=== PATIENT | female | born 1960 | race Caucasian/White ===

== ENCOUNTER → 2018-03-12 13:56 | Outpatient (CLI) | payer SELFPAY ==
[2018-03-12 14:51] LABS: Basophils % 0.4 % (0.1-2.0); Eosinophils # 0.2 K/mm3 (0.0-0.4); Eosinophils % 1.7 % (0.1-12.0); Hematocrit 44.7 % (37.0-47.0); Hemoglobin 14.8 g/dL (12.2-16.2); Lymphocytes # 3.2 K/mm3 (0.7-4.5); Lymphocytes % 32.9 K/mm3 (10-50); Mean Corpuscular Volume 84.7 fl (81-99); Mean Platelet Volume 7.7 fl (7.4-10.4); Monocytes # 0.4 K/mm3 (0.1-1.0); Monocytes % 3.5 % (1.7-9.3); Neutrophils # 6.1 K/mm3 (1.8-7.8); Neutrophils % 61.5 % (37.0-80.0); Platelet Count 251 K/mm3 (142-424); Red Blood Count 5.28 M/mm3 (4.20-5.40); Red Cell Distribution Width 13.2 % (11.5-17.5); White Blood Count 9.9 K/mm3 (4.8-10.8)
[2018-03-12 16:40] LABS: Alanine Aminotransferase 33 U/L (12-78); Albumin Level 3.8 gm/dL (3.4-5.0); Alkaline Phosphatase 94 U/L (46-116); Anion Gap 14.4 mEq/L (5-15); Aspartate Amino Transferase 24 U/L (15-37); Bilirubin,Total 0.6 mg/dL (0.2-1.0); Blood Urea Nitrogen 13 mg/dL (7-18); Calcium 9.5 mg/dL (8.5-10.1); Carbon Dioxide 27 mmol/L (21.0-32.0); Chloride 99 mmol/L (98-107); Creatinine,Serum 0.71 mg/dL (0.55-1.02); Estimated Glomerular Filt Rate 85 ml/min (>60); GFR (African American) 103 ML/MIN (>60); Globulin 3.7 gm/dl (1.3-3.2); Glucose 347 mg/dL (74-106); Potassium 4.4 mmoL/L (3.5-5.1); Sodium 136 mmol/L (136-145); Thyroid Stimulating Hormone 2.15 uIU/ml (0.358-3.740); Total Protein,Serum 7.5 gm/dL (6.4-8.2)
[2018-03-12 16:45] LABS: Erythrocyte Sedimentation Rate 39 mm/hr (0-30)
[2018-03-14 10:18] LABS: Folate >20.0 ng/mL (>3.0); Vitamin B12 408 pg/mL (232-1245)
== END ==
PROVIDERS: Visit Provider Nurse Practitioner Family
DX: R51 Headache (principal); R40.0 Somnolence; R06.83 Snoring; I10 Essential (primary) hypertension; E11.9 Type 2 diabetes mellitus without complications
CPT/HCPCS: 36415; 80053; 82607; 82746; 84443; 85025; 85651

== ENCOUNTER → 2018-03-12 14:41 | Outpatient (CLI) | payer SELFPAY | PROVIDERS: Visit Provider Nurse Practitioner Family | DX: R51 Headache (principal); R40.0 Somnolence; R06.83 Snoring; I10 Essential (primary) hypertension; E11.9 Type 2 diabetes mellitus without complications | CPT/HCPCS: 95806 ==

== ENCOUNTER → 2018-03-13 08:47 | Outpatient (CLI) | payer SELFPAY ==
--- NOTE | 2018-03-13 08:50 | MR_ITS ---
MR head/brain wo/w con HISTORY: Severe headaches with dizziness ITS.REASON: Headache ORDERING PHYSICIAN: Bernabe Sarah PATIENT AGE: 57 years TECHNIQUE: Standard multiplanar multiecho sequences are performed without and with gadolinium enhancement. FINDINGS: No midline shift, mass effect, intracranial hemorrhage, enhancing lesion, or acute infarction. The cerebellopontine angles, cerebellum, and brainstem are unremarkable. No pituitary mass or compressive lesion upon the optic chiasm. There is a 4 x 4 millimeter area of T2 hypointensity at the roof of the third ventricle anteriorly consistent with a small colloid cyst. This is best demonstrated on the sagittal T2-weighted images. This does not demonstrate contrast enhancement. The ventricles are not dilated. Hippocampal gyri are unremarkable and the temporal horns are symmetric. There is normal zhou-white matter differentiation No large aneurysms are evident. Small aneurysms may not be detected with this technique and may be better evaluated for with MRA if clinically warranted. No mastoid effusion or sinus air-fluid level. No calvarial abnormalities. IMPRESSION: 1. 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 No hydrocephalus. Recommend at least a 6 month follow-up to confirm short-term stability 2. Otherwise negative MRI of the brain without and with contrast
== END ==
PROVIDERS: Family Provider Nurse Practitioner Family; Visit Provider Nurse Practitioner Family
DX: R51 Headache (principal); R40.0 Somnolence; R06.83 Snoring; I10 Essential (primary) hypertension; E11.9 Type 2 diabetes mellitus without complications
CPT/HCPCS: 70553; A9576

== ENCOUNTER → 2018-04-16 15:59 | Outpatient (REF) | payer SELFPAY ==
[2018-04-16 18:54] LABS: Basophils % 0.4 % (0.1-2.0); Eosinophils # 0.2 K/mm3 (0.0-0.4); Eosinophils % 1.7 % (0.1-12.0); Hematocrit 46.1 % (37.0-47.0); Hemoglobin 14.9 g/dL (12.2-16.2); Hemoglobin A1C 9.5 % (0.0-7.0); Lymphocytes # 3.2 K/mm3 (0.7-4.5); Lymphocytes % 28.1 K/mm3 (10-50); Mean Corpuscular HGB Conc 32.4 g/dL (31.8-35.4); Mean Corpuscular Hemoglobin 27.7 pg (27.0-31.2); Mean Corpuscular Volume 85.5 fl (81-99); Mean Platelet Volume 7.9 fl (7.4-10.4); Monocytes # 0.5 K/mm3 (0.1-1.0); Monocytes % 4.1 % (1.7-9.3); Neutrophils # 7.6 K/mm3 (1.8-7.8); Neutrophils % 65.8 % (37.0-80.0); Platelet Count 296 K/mm3 (142-424); Red Cell Distribution Width 13.2 % (11.5-17.5); White Blood Count 11.6 K/mm3 (4.8-10.8)
[2018-04-16 19:32] LABS: Amphetamine/Metha Screen,Urine Negative ng/mL (<1000); Barbiturates Screen,Urine Negative ng/mL (<200); Benzodiazepines Screen,Urine Negative ng/mL (200); Cannabinoid Screen,Urine Negative ng/mL (<50); Cocaine Screen,Urine Negative ng/g (<300); Methadone Screen,Urine Negative ng/mL (<300); Opiate Screen,Urine Negative ng/mL (<300); Phencyclidine Screen,Urine Negative ng/mL (<25)
[2018-04-16 20:00] LABS: Alanine Aminotransferase 27 U/L (12-78); Albumin Level 3.9 gm/dL (3.4-5.0); Albumin/Globulin Ratio 1.1 (1.1-1.8); Alkaline Phosphatase 96 U/L (46-116); Aspartate Amino Transferase 17 U/L (15-37); Bilirubin,Total 0.7 mg/dL (0.2-1.0); Blood Urea Nitrogen 16 mg/dL (7-18); Calcium 9.7 mg/dL (8.5-10.1); Carbon Dioxide 29 mmol/L (21.0-32.0); Chloride 98 mmol/L (98-107); Chol/HDL Ratio 6.1 (1-3.5); Cholesterol 200 mg/dL (140-200); Creatinine,Serum 0.68 mg/dL (0.55-1.02); Estimated Glomerular Filt Rate 89 ml/min (>60); GFR (African American) 108 ML/MIN (>60); Globulin 3.7 gm/dl (1.3-3.2); Glucose 215 mg/dL (74-106); HDL Cholesterol 33 mg/dL (29-89); Sodium 136 mmol/L (136-145); T4 (Thyroxine) 10.1 ug/dl (4.7-13.3); Thyroid Stimulating Hormone 0.94 uIU/ml (0.358-3.740); Total Protein,Serum 7.6 gm/dL (6.4-8.2)
[2018-04-16 20:02] LABS: Triglycerides 410 mg/dL (30-200)
[2018-04-18 11:21] LABS: Creatinine, Urine 87.6 mg/dL (Not Estab.); Microalbumin, Urine 35.7 ug/mL (Not Estab.)
[2018-04-18 15:47] LABS: Vitamin D 25 Hydroxy 7.1 ng/mL (30.0-100.0)
== END ==
LOC: LAB 15:59
PROVIDERS: Visit Provider Nurse Practitioner Family
DX: R53.83 Other fatigue (principal); E11.9 Type 2 diabetes mellitus without complications; R30.0 Dysuria; Z79.899 Other long term (current) drug therapy
CPT/HCPCS: 80053; 80061; 80305; 82043; 82570; 82652; 83036; 84436; 84443; 85025

== ENCOUNTER → 2018-04-18 12:52 | Outpatient (CLI) | payer SELFPAY ==
--- NOTE | 2018-04-18 12:54 | MR_ITS ---
MR cervical spine wo con, MR 3-d myelogram/MRCP Ordering Physician: Bernabe Sarah Patient Age: 57 years: Female HISTORY: ITS.REASON: Neck pain/headache Migraine headaches neck pain symptoms 3 years PROCEDURE. Sagittal STIR, T1, T2, axial T1 and T2. On 1.5T Siemens wide bore MRI. 3-D MR myelogram image set obtained & performed on MRI workstation. Additional sagittal thin section T2 weighted dataset obtained from this latter acquisition as well (---76 CPT) COMPARISON :Plain film C-spine from today FINDINGS Cranial cervical junction appears satisfactory. It appears be normal alignment at the cervical spine on these views. Prevertebral and regional soft tissues normal. Adequate plantar cervical canal. Thoracic cord normal caliber and signal. C2/3, C3/4, C4/5 disc intact and unremarkable.. Facet hypertrophy most evident at the upper C-spine at C4/5 the left. However there is also minor facet hypertrophy at C3/4 and C5-C6 most evident the left C5-C6. Borderline disc space narrowing. Diffuse disc bulge with additional mild broad-based soft disc protrusion to just to the left of midline. This indents the thecal sac and just abuts the anterior aspect of the cervical cord to the left. C 6/7. Minimal disc space narrowing. Broad-based mild to moderate disc protrusion to the right. This protrusion extends up to 3 mm posteriorly with broad base. The disc protrusion abuts & mildly effaces the cervical cord to the right of midline. The 3-D MR myelogram image set demonstrates the mild anterior indentation upon thecal sac evident C 6/7 and to lesser C5/6 but due to the above described features. ... IMPRESSION.......... 1....... C6/7: Broad-based bilateral mild/moderate disc protrusion right paracentral. This does mildly efface cervical cord to right. 2.... C5/6: Small disc protrusion midline and to the left.. Indents thecal sac& Just abuts the cervical cord 3. Normal alignment C-spine. On MR 4. Also noted Mild/moderate facet hypertrophy most evident left C4/5, and to lesser degree other levels .
--- NOTE | 2018-04-18 13:51 | XR_ITS ---
XR cervical spine w flex/ext Ordering Physician: Bernabe Sarah Patient Age: 57 years: Female HISTORY: ITS.REASON: Neck pain/ Headache Neck pain back pain headache. MRI today. TECHNIQUE: Five-view cervical spine series including lateral flexion-extension views COMPARISON :MRI from today. FINDINGS The vertebral bodies are intact. Normal alignment Disc spaces are fairly well-maintained with only slight narrowing at C6-7. Minor posterior hypertrophic endplate lipping, ridging is seen at this level along with anterior marginal osteophytes. Only Borderline narrowing C5-C6 disc space Oblique views also shows some mild uncovertebral joint hypertrophy and mild encroachment upon the neural foramen bilaterally at C3/4, and less evident at C4/5. Facet hypertrophy most evident to the left at C4/5, and less pronounced at the left at C3/4 & C5-C6 C1-C2 relationships appear satisfactory. Dens intact. Prevertebral soft tissues appear normal. The flexion-extension views performed.* Very Minor ~2.1 mm anterior positioning of C3 on 4 less.. This minor feature appears appears stable between fixed flexion-extension views with no definite change.. On the extension views there is scant with over 1 mm posterior offset of C5 on C6.. 3 minor but noted as well ... IMPRESSION...... 1. Only minimal degenerative disc space narrowing C6/7 2. Only very minor observations on flexion and extension views: ..... Minor 2 mm anterior listhesis of C3 on C4. No appreciable change, between flexion & extension.. ... Scant just over1 mm posterior offset of C5 on C6 on extension views. This appearance may be accentuated by some very early, hypertrophic ridging from the inferior posterior margin of C5 . 3. Degenerative facet changes most evident C4/5 the left along with C3/4, C5-C6 on left..
== END ==
PROVIDERS: Family Provider Nurse Practitioner Family; PCP Nurse Practitioner Family; Visit Provider Nurse Practitioner Family
DX: R51 Headache (principal); M54.2 Cervicalgia
CPT/HCPCS: 72052; 72141; 76376

== ENCOUNTER → 2018-04-23 13:38 | Outpatient (CLI) | payer SELFPAY ==
--- NOTE | 2018-04-23 14:08 | CT_ITS ---
CT sinus wo/w con CLINICAL INDICATION: Chronic maxillary sinusitis ITS.REASON: chronic sinus issues ORDERING PHYSICIAN: Christian Dumont MD PATIENT AGE: 57 years : None TECHNIQUE:Axial, sagittal, and coronal images are generated and reviewed without and with contrast. 100 mL Isovue-[address] scans at the facility use one or more dose reduction, viz: automated exposure control; ma/kV adjustment per patient size (including targeted exams where dose is matched to indication; i.e. head); or iterative reconstruction technique. FINDINGS: Bones: Unremarkable. No fracture, lytic, or blastic changes evident Extracranial soft tissues: Unremarkable Sinuses: Unremarkable. No air-fluid levels or significant mucosal thickening Orbits: Unremarkable Other: No other pertinent findings IMPRESSION: Negative CT of the sinuses without and with contrast
--- NOTE | 2018-04-23 14:35 | HMH.ITSHM ---
SIMVASTATIN,METFORMIN,CYCLOBENZAPR,GABAPENTIN,PROPANOLOL,MONTELKKAST,GLIPIZIDE
== END ==
PROVIDERS: Family Provider Nurse Practitioner Family; PCP Nurse Practitioner Family; Visit Provider Otolaryngology
DX: J32.0 Chronic maxillary sinusitis (principal); J34.2 Deviated nasal septum
CPT/HCPCS: 70488; Q9967

== ENCOUNTER → 2018-06-12 13:03 | Outpatient (CLI) | payer SELFPAY ==
[2018-06-12 13:09] LABS: Microscopic, Urine URINE MICROSCOPIC (MICROSCOPIC)
[2018-06-12 13:55] LABS: Appearance,Urine CLEAR (Clear); Bilirubin,Urine Negative (Negative); Blood, Urine 2+ (Negative); Color,Urine YELLOW (Yellow); Glucose,Urine (UA) TRACE (Negative); Ketones,Urine Negative (Negative); Leukocyte Esterase,Urine 2+ (Negative); Nitrate,Urine Negative (Negative); Protein,Urine Negative (Negative); Specific Gravity, Urine 1.015 (1.005-1.030); Urobilinogen,Urine 0.2 EU/dl (0.2)
[2018-06-12 14:00] LABS: Creatinine,Urine Random 97 mg/dL (20-320); Total Protein,Urine Random 15.9 mg/dL (0.0-11.9)
[2018-06-12 14:19] LABS: Bacteria,Urine Trace /lpf; Basophils # 0.1 K/mm3 (0-0.2); Basophils % 0.5 % (0.1-2.0); Eosinophils # 0.2 K/mm3 (0.0-0.4); Eosinophils % 1.8 % (0.1-12.0); Hemoglobin 14.2 g/dL (12.2-16.2); Lymphocytes # 3.2 K/mm3 (0.7-4.5); Lymphocytes % 29.4 K/mm3 (10-50); Mean Corpuscular HGB Conc 33.1 g/dL (31.8-35.4); Mean Corpuscular Hemoglobin 27.4 pg (27.0-31.2); Mean Corpuscular Volume 82.8 fl (81-99); Mean Platelet Volume 7.3 fl (7.4-10.4); Monocytes # 0.4 K/mm3 (0.1-1.0); Monocytes % 3.4 % (1.7-9.3); Neutrophils % 64.9 % (37.0-80.0); Platelet Count 279 K/mm3 (142-424); Red Blood Count 5.19 M/mm3 (4.20-5.40); Red Cell Distribution Width 13.6 % (11.5-17.5); White Blood Count 10.8 K/mm3 (4.8-10.8)
[2018-06-12 14:39] LABS: Albumin Level 3.6 gm/dL (3.4-5.0); Anion Gap 10.7 mEq/L (5-15); Blood Urea Nitrogen 14 mg/dL (7-18); Calcium 9.2 mg/dL (8.5-10.1); Carbon Dioxide 29 mmol/L (21.0-32.0); Chloride 103 mmol/L (98-107); Creatinine,Serum 0.65 mg/dL (0.55-1.02); Estimated Glomerular Filt Rate 94 ml/min (>60); GFR (African American) 114 ML/MIN (>60); Glucose 199 mg/dL (74-106); Phosphorous 4.6 mg/dL (2.4-4.9); Potassium 4.7 mmoL/L (3.5-5.1); Sodium 138 mmol/L (136-145)
[2018-06-13 18:17] LABS: Parathyroid Hormone Intact 34 pg/mL (15-65); Vitamin D 25 Hydroxy 21.2 ng/mL (30.0-100.0)
== END ==
PROVIDERS: Visit Provider Internal Medicine Nephrology
DX: R80.9 Proteinuria, unspecified (principal)
CPT/HCPCS: 36415; 80069; 81001; 82570; 82652; 83970; 84155; 85025; 87086

== ENCOUNTER → 2019-03-09 17:26 | Outpatient (CLI) | payer SELFPAY ==
[2019-03-09 18:16] LABS: Amphetamine/Metha Screen,Urine Negative ng/mL (<1000); Barbiturates Screen,Urine Negative ng/mL (<200); Benzodiazepines Screen,Urine Negative ng/mL (<200); Cannabinoid Screen,Urine Negative ng/mL (<50); Cocaine Screen,Urine Negative ng/mL (<300); Methadone Screen,Urine Negative ng/mL (<300); Opiate Screen,Urine Negative ng/mL (<300); Phencyclidine Screen,Urine Negative ng/mL (<25)
[2019-03-11 11:12] LABS: Creatinine, Urine 25.9 mg/dL (Not Estab.); Microalbumin, Urine 6.3 ug/mL (Not Estab.)
== END ==
PROVIDERS: Visit Provider Nurse Practitioner Family
DX: Z79.899 Other long term (current) drug therapy (principal); E11.9 Type 2 diabetes mellitus without complications; Z79.84 Long term (current) use of oral hypoglycemic drugs
CPT/HCPCS: 80305; 82043; 82570

== ENCOUNTER → 2019-10-05 10:00 | Outpatient (CLI) | payer SELFPAY ==
--- NOTE | 2019-10-05 10:03 | XR_ITS ---
PROCEDURE: XR HAND LT MIN 3V CLINICAL INDICATION: ring finger locking COMPARISON: No exams were available for comparison FINDINGS: No fracture or dislocation. No lytic or blastic change. There is normal mineralization. There are mild osteoarthritic changes at the 1st metacarpal-carpal joint. Other findings:None. IMPRESSION: Mild osteoarthritic change 1st metacarpal-carpal joint otherwise negative Dictated by: Naseem Hays MD 10/05/2019 13:23 Electronically signed by Naseem Hays MD in [place] 10/05/2019 13:23
--- NOTE | 2019-10-05 10:03 | XR_ITS ---
PROCEDURE: XR CHEST 2V CLINICAL HISTORY: elevated alk phos COMPARISON: CXR1 CHEST-PORTABLE from 10/31/2016 FINDINGS: The cardiomediastinal silhouette and pulmonary vascularity are within normal limits. The lungs are clear without infiltrates, suspicious nodules, or pleural effusions. No acute bony abnormalities. IMPRESSION: No acute findings. Dictated by: Naseem Hays MD 10/05/2019 13:23 Electronically signed by Naseem Hays MD in [place] 10/05/2019 13:23
[2019-10-05 11:30] LABS: Basophils % 0.5 % (0.1-2.0); Eosinophils # 0.1 K/mm3 (0.0-0.4); Eosinophils % 1.5 % (0.1-12.0); Hematocrit 42.8 % (37.0-47.0); Hemoglobin 14.1 g/dL (12.2-16.2); Lymphocytes # 2.7 K/mm3 (0.7-4.5); Lymphocytes % 30.5 % (10-50); Mean Corpuscular HGB Conc 32.9 g/dL (31.8-35.4); Mean Corpuscular Hemoglobin 28.5 pg (27.0-31.2); Mean Corpuscular Volume 86.6 fl (81-99); Mean Platelet Volume 7.9 fl (7.4-10.4); Monocytes # 0.4 K/mm3 (0.1-1.0); Monocytes % 4.1 % (1.7-9.3); Neutrophils # 5.6 K/mm3 (1.8-7.8); Neutrophils % 63.4 % (37.0-80.0); Platelet Count 258 K/mm3 (142-424); Red Blood Count 4.94 M/mm3 (4.20-5.40); Red Cell Distribution Width 13.1 % (11.5-17.5); White Blood Count 8.8 K/mm3 (4.8-10.8)
[2019-10-05 12:13] LABS: Alanine Aminotransferase 19 U/L (12-78); Albumin Level 3.4 gm/dL (3.4-5.0); Alkaline Phosphatase 77 U/L (46-116); Anion Gap 13.8 mEq/L (5-15); Aspartate Amino Transferase 29 U/L (15-37); Blood Urea Nitrogen 10 mg/dL (7-18); Calcium 8.9 mg/dL (8.5-10.1); Carbon Dioxide 27 mmol/L (21.0-32.0); Chloride 96 mmol/L (98-107); Chol/HDL Ratio 3.9 (1-3.5); Cholesterol 126 mg/dL (140-200); Creatinine,Serum 0.74 mg/dL (0.55-1.02); Estimated Glomerular Filt Rate 80 ml/min (>60); GFR (African American) 97 ML/MIN (>60); Globulin 3.4 gm/dl (1.3-3.2); Glucose 264 mg/dL (74-106); HDL Cholesterol 32 mg/dL (29-89); LDL Cholesterol 51 mg/dL (0-130); Potassium 4.8 mmoL/L (3.5-5.1); Sodium 132 mmol/L (136-145); T4 (Thyroxine) 10.9 ug/dl (4.7-13.3); Total Protein,Serum 6.8 gm/dL (6.4-8.2); Triglycerides 213 mg/dL (30-200); VLDL Cholesterol 43 mg/dL (0-40)
[2019-10-05 12:36] LABS: Hemoglobin A1C 11.1 % (0.0-7.0)
[2019-10-06 11:28] LABS: Vitamin D 25 Hydroxy 11.4 ng/mL (30.0-100.0)
[2019-10-06 11:29] LABS: Microalbumin, Urine 59.8 ug/mL (Not Estab.)
== END ==
PROVIDERS: PCP Nurse Practitioner Family; Visit Provider Nurse Practitioner Family
DX: M65.342 Trigger finger, left ring finger (principal); R05 Cough; E11.9 Type 2 diabetes mellitus without complications; R00.0 Tachycardia, unspecified; R53.83 Other fatigue; I10 Essential (primary) hypertension; E55.9 Vitamin D deficiency, unspecified
CPT/HCPCS: 36415; 71046; 73130; 80053; 80061; 82043; 82652; 83036; 84436; 84443; 85025

== ENCOUNTER → 2020-01-04 08:49 | Outpatient (CLI) | payer SELFPAY ==
[2020-01-04 09:18] LABS: Basophils # 0.1 K/mm3 (0-0.2); Basophils % 0.6 % (0.1-2.0); Eosinophils # 0.2 K/mm3 (0.0-0.4); Eosinophils % 1.9 % (0.1-12.0); Hematocrit 44.3 % (37.0-47.0); Hemoglobin 15.1 g/dL (12.2-16.2); Lymphocytes # 3.3 K/mm3 (0.7-4.5); Lymphocytes % 33.2 % (10-50); Mean Corpuscular Volume 85.2 fl (81-99); Mean Platelet Volume 8.1 fl (7.4-10.4); Monocytes # 0.4 K/mm3 (0.1-1.0); Monocytes % 3.9 % (1.7-9.3); Neutrophils # 6.1 K/mm3 (1.8-7.8); Neutrophils % 60.3 % (37.0-80.0); Platelet Count 273 K/mm3 (142-424); Red Cell Distribution Width 13.1 % (11.5-17.5)
[2020-01-04 10:11] LABS: Alanine Aminotransferase 18 U/L (12-78); Albumin Level 4.4 g/dl (3.5-5.0); Albumin/Globulin Ratio 1.4 (1.1-1.8); Alkaline Phosphatase 109 U/L (38-126); Anion Gap 17.3 mEq/L (5-15); Aspartate Amino Transferase 26 U/L (14-36); Bilirubin,Total 0.9 mg/dl (0.2-1.3); Blood Urea Nitrogen 19 mg/dl (7-17); Calcium 10.4 mg/dl (8.4-10.2); Carbon Dioxide 27 mmol/L (22.0-30.0); Chloride 93 mmol/L (98-107); Chol/HDL Ratio 3.7 (1-3.5); Cholesterol 126 mg/dl (140-200); Estimated Glomerular Filt Rate 102 ml/min (>60); GFR (African American) 124 ML/MIN (>60); Globulin 3.1 g/dL (1.3-3.2); Glucose 350 mg/dl (74-100); HDL Cholesterol 34 mg/dl (40-60); Potassium 5.3 mmoL/L (3.5-5.1); Sodium 132 mmol/L (136-145); Total Protein,Serum 7.5 g/dl (6.3-8.2); Triglycerides 218 mg/dl (30-150); VLDL Cholesterol 44 mg/dL (0-40)
[2020-01-04 10:21] LABS: Direct LDL Cholesterol 77.99 mg/dL (100-129)
[2020-01-04 10:28] LABS: T4 (Thyroxine) 12.7 ug/dl (5.53-11.0)
[2020-01-04 10:42] LABS: Thyroid Stimulating Hormone 2.03 uIU/mL (0.465-4.68)
[2020-01-04 11:14] LABS: Hemoglobin A1C 11.5 % (4.0-6.0)
[2020-01-07 06:36] LABS: C-Peptide 4.5 ng/mL (1.1-4.4)
== END ==
PROVIDERS: Visit Provider Nurse Practitioner Family
DX: E11.9 Type 2 diabetes mellitus without complications (principal); Z79.4 Long term (current) use of insulin; Z79.84 Long term (current) use of oral hypoglycemic drugs
CPT/HCPCS: 80053; 80061; 82652; 83036; 84436; 84443; 84681; 85025

== ENCOUNTER → 2021-03-28 10:42 | Outpatient (CLI) | payer SELFPAY ==
--- NOTE | 2021-03-28 10:51 | MM_ITS ---
PROCEDURE INFORMATION: Exam: MG Screening 3D Mammography Exam date and time: 03/28/2021 10:51 AM Age: 60 years old Clinical indication: Encounter for screening mammogram for malignant neoplasm of breast; Additional info: Breast CA screening TECHNIQUE: Imaging protocol: Screening tomosynthesis and 2D mammography including computer-aided detection (CAD) when performed. COMPARISON: No relevant prior studies available. FINDINGS: MAMMOGRAPHY: Breast composition: There are scattered areas of fibroglandular density. Mass: No new suspicious masses. Architectural distortion: No suspicious distortion. Calcifications: No suspicious calcifications. Asymmetric density: None. Skin thickening: None. Axillary adenopathy: None. IMPRESSION: No mammographic evidence of malignancy. Annual screening is recommended unless otherwise clinically indicated. ASSESSMENT: BI-RADS Category 1: Negative
== END ==
LOC: RAD 10:44
PROVIDERS: PCP Nurse Practitioner Family; Visit Provider Nurse Practitioner Family
DX: Z12.31 Encounter for screening mammogram for malignant neoplasm of breast (principal)
CPT/HCPCS: 77063; 77067

== ENCOUNTER → 2021-05-17 12:11 | Outpatient (CLI) | payer SELFPAY ==
[2021-05-17 12:52] LABS: Basophils # 0.1 K/mm3 (0-0.2); Basophils % 0.6 % (0.1-2.0); Eosinophils # 0.2 K/mm3 (0.0-0.4); Eosinophils % 2.5 % (0.1-12.0); Hematocrit 38.1 % (37.0-47.0); Hemoglobin 13.3 g/dL (12.2-16.2); Lymphocytes # 2.7 K/mm3 (0.7-4.5); Lymphocytes % 28.3 % (10-50); Mean Corpuscular Hemoglobin 28.3 pg (27.0-31.2); Mean Corpuscular Volume 80.8 fl (81-99); Mean Platelet Volume 7.7 fl (7.4-10.4); Monocytes # 0.3 K/mm3 (0.1-1.0); Monocytes % 3.6 % (1.7-9.3); Neutrophils # 6.2 K/mm3 (1.8-7.8); Neutrophils % 65.1 % (37.0-80.0); Platelet Count 265 K/mm3 (142-424); Red Blood Count 4.71 M/mm3 (4.20-5.40); Red Cell Distribution Width 14.1 % (11.5-17.5); White Blood Count 9.6 K/mm3 (4.8-10.8)
[2021-05-17 13:36] LABS: Alanine Aminotransferase 13 U/L (12-78); Albumin Level 3.8 g/dl (3.5-5.0); Albumin/Globulin Ratio 1.3 (1.1-1.8); Alkaline Phosphatase 95 U/L (38-126); Anion Gap 12.8 mEq/L (5-15); Aspartate Amino Transferase 25 U/L (14-36); Bilirubin,Total 0.7 mg/dl (0.2-1.3); Blood Urea Nitrogen 10 mg/dl (7-17); Carbon Dioxide 29 mmol/L (22.0-30.0); Chloride 103 mmol/L (98-107); Chol/HDL Ratio 4.6 (1-3.5); Cholesterol 144 mg/dl (140-200); Estimated Glomerular Filt Rate 85 ml/min (>60); GFR (African American) 103 ML/MIN (>60); Glucose 152 mg/dl (74-100); HDL Cholesterol 31 mg/dl (40-60); Potassium 4.8 mmoL/L (3.5-5.1); Sodium 140 mmol/L (136-145); Total Protein,Serum 6.8 g/dl (6.3-8.2); Triglycerides 209 mg/dl (30-150); VLDL Cholesterol 42 mg/dL (0-40)
[2021-05-17 13:47] LABS: Direct LDL Cholesterol 82.15 mg/dL (100-129)
[2021-05-17 13:52] LABS: 25-OH Vitamin D, Total 23.8 ng/mL (30-100)
[2021-05-17 13:53] LABS: T4 (Thyroxine) 9.8 ug/dl (5.53-11.0)
[2021-05-17 14:07] LABS: Thyroid Stimulating Hormone 1.18 uIU/mL (0.465-4.68)
[2021-05-17 14:24] LABS: Creatinine,Urine Random 71 mg/dL (Not Estab.)
[2021-05-17 14:48] LABS: Hemoglobin A1C 8.2 % (4.0-6.0)
== END ==
LOC: LAB 12:11
PROVIDERS: Visit Provider Nurse Practitioner Family
DX: E11.42 Type 2 diabetes mellitus with diabetic polyneuropathy (principal); E78.5 Hyperlipidemia, unspecified; I10 Essential (primary) hypertension; Z79.4 Long term (current) use of insulin; Z79.899 Other long term (current) drug therapy
CPT/HCPCS: 36415; 80053; 80061; 82043; 82306; 82570; 83036; 84436; 84443; 85025

== ENCOUNTER → 2021-06-13 14:00 | Outpatient (CLI) | payer SELFPAY ==
--- NOTE | 2021-06-13 14:05 | XR_ITS ---
PROCEDURE: XR HIP LT 2-3V W/PELVIS CLINICAL INDICATION: pain at left si after fall COMPARISON: No exams were available for comparison FINDINGS: No fracture or dislocation is evident. No significant degenerative change. No lytic or blastic change. Unremarkable soft tissues. Contrast is present within sigmoid diverticula and descending colon and 1 ascending colon diverticulum. IMPRESSION: No acute findings. Dictated by: Naseem Hays MD 06/13/2021 14:54 Naseem Hays MD in [place] 06/13/2021 14:54
== END ==
LOC: RAD 14:02
PROVIDERS: PCP Nurse Practitioner Family; Visit Provider Orthopaedic Surgery
DX: Z91.81 History of falling (principal); M25.552 Pain in left hip
CPT/HCPCS: 73502

== ENCOUNTER → 2021-08-04 12:41 | Outpatient (POV) | payer SELFPAY | PROVIDERS: Visit Provider Internal Medicine Nephrology | DX: Z00.00 Encounter for general adult medical examination without abnormal findings (principal) ==

== ENCOUNTER 2021-09-21 15:11 | Emergency (ER) | payer SELFPAY ==
[2021-09-21 17:03] VITALS: BP 105/57; PULSE 108; RESP 16; TEMP 37.3; O2SAT 96; BMI 34.7
--- NOTE | 2021-09-21 17:49 | HMH.EDUTC ---
[facility] [place] Disposition Clinical Impression: Viral syndrome, Exposure to COVID-19 virus Disposition: Home, Self-Care Condition on Discharge: Good Instructions: Preventing the Spread of Coronavirus Discharge Instructions, DI for COVID-19 (Suspected or Confirmed ), Asthma -- Adult, DI for Asthma -- Adult Additional Instructions: Drink plenty of fluids. Take tylenol or ibuprofen for pain or fever. Take the medications as directed. Follow up with your regular doctor. GO TO THE ER FOR ANY WORSENING SYMPTOMS Quarantine until you know the results of your covid-19 test. If it is positive, the health department should call you and give you further instructions about your length of Quarantine and other things. Notify your school or workplace of your results and follow their instructions regarding return to work/school. Prescriptions: Albuterol Sulfate [Albuterol Sulfate Hfa] 2 puffs IH Q6HP PRN 30 Days #1 each PRN Reason: Shortness Of Breath Transmission Status: Pending to [facility] predniSONE [Deltasone 10mg tablet] 10 mg PO DAILY 9 Days #21 tab Transmission Status: Pending to [facility] guaiFENesin [Mucinex 600mg tablet] 1 - 2 tab PO BIDP PRN #30 tab PRN Reason: Congestion Transmission Status: Pending to [facility] Azithromycin [Z-Michel 250mg Tab*] 250 mg PO UD DOSE PK #6 tab Transmission Status: Pending to [facility] Referrals: Adarsh Fernández APRN [Primary Care Provider] - Time of Disposition: 18:00 Medical Decision Making - Medical Records Medical records reviewed: No: I reviewed the patient's medical records. - Abebe Inquiry Pt receiving controlled substance: No Vital Signs: 09/21/21 17:03 Temperature 99.2 F Temperature Source Oral Pulse Rate [Left] 108 H Respiratory Rate 16 Blood Pressure [Right Arm] 105/57 L Blood Pressure Mean [Right Arm] 73 02 Sat by Pulse Oximetry 96 [facility] [place] HPI - General Stated complaint: Covid test,with symptoms Time Seen by Provider: 09/21/21 17:49 Mode of Arrival: Wheelchair Source of Information: Patient Limitations: No Limitations Description of Symptoms (Recalled from Triage Doc. by RN): PT C/O COUGH, NASAL DRAINAGE, SORE THROAT, AND A NASTY TASTE IN HER MOUTH. PT STATES SHE HAS BRONCHITIS. HEENT Symptoms (Recalled from RN notes): Yes (NASAL DRAINAGE AND SORE THROAT) Resp Symptoms (Recalled from RN notes): Yes (COUGH) Skin Symptoms (Recalled from RN notes): No MS Symptoms (Recalled from RN notes): No Functional Status (Recalled from RN notes): NA - History of Present Illness Provider Complaint: She has been exposed to covid-19 in her house. She has been feeling bad and having a cough for the past 2 days. She has a history of ashtma. She has been vaccinated against covid-19. - Related Data Previous Rx's Medication Instructions Recorded ergocalciferol (vitamin D2) 1,250 50,000 unit PO QWEEK #10 cap 10/18/19 mcg (50,000 unit) capsule albuterol sulfate 90 mcg/actuation 1 puff INHALATION Q6H #6.7 g 09/05/20 aerosol inhaler lisinopril 2.5 mg tablet See Rx Instructions .ROUTE 11/08/20 .COMPLEX #90 tab montelukast 10 mg tablet See Rx Instructions .ROUTE 11/08/20 .COMPLEX #90 tab insulin glargine U-300 conc 300 14 unit SQ QHS #6 ml 01/31/21 unit/mL (3 mL) subcutaneous pen insulin human U-100 NPH-regulr 27 unit SQ TID 30 Days #24.3 vial 01/31/21 70-30 mix 100 unit/mL subcutaneous susp gabapentin 600 mg tablet 600 mg PO QID PRN 30 Days #120 tab 03/22/21 propranolol 160 mg capsule,24 See Rx Instructions .ROUTE 03/22/21 hr,extended release .COMPLEX #90 cap ergocalciferol (vitamin D2) 1,250 50,000 unit PO QWEEK #10 cap 05/18/21 mcg (50,000 unit) capsule acetaminophen 300 mg-codeine 30 mg 1 tab PO BID PRN #30 tab NS 06/13/21 tablet ciprofloxacin HCl 500 mg tablet 500 mg PO BID #20 tab 08/24/21 metronidazole 500 mg tablet 500 mg PO TID #30 tab 08/24/21 atorvastatin 10 mg tablet See Rx Instructions .ROUTE 08/11
[2021-09-21 18:02] VITALS: BP 105/57; PULSE 108; RESP 16; TEMP 37.3
== END 2021-09-21 18:07 | disposition home or self-care (01) ==
PROVIDERS: Emergency Provider Nurse Practitioner Family; PCP Nurse Practitioner Family
DX: U07.1 COVID-19 (principal); B34.9 Viral infection, unspecified; J02.9 Acute pharyngitis, unspecified; E11.9 Type 2 diabetes mellitus without complications; I10 Essential (primary) hypertension; K21.9 Gastro-esophageal reflux disease without esophagitis; Z79.899 Other long term (current) drug therapy
CPT/HCPCS: 99202; C9803; G0463; U0003; U0005

== ENCOUNTER 2021-09-24 08:05 | Outpatient (CLI) | payer SELFPAY ==
[2021-09-24] VITALS (17 sets, daily range): BP systolic 93–133; BP diastolic 49–112; PULSE 78–92; RESP 17; TEMP 36.8; O2SAT 91–96; BMI 34.7
--- NOTE | 2021-09-24 10:28 | PC.NURSE ---
Called rock crushing machine operator to page Dr. Alston
--- NOTE | 2021-09-24 10:29 | PC.NURSE ---
Pt stated that she feels like she is having her throat swelling. She states that her throat is burning. She stated that she feels like her arms are swelling.
--- NOTE | 2021-09-24 10:42 | PC.NURSE ---
Spoke with Dr. Johns about pt. He stated to give her 25mls of benadryl more and monitor pt..
--- NOTE | 2021-09-24 11:59 | PC.NURSE ---
Spoke with Dr. Johns he is fine to let pt go if she is stable.
--- NOTE | 2021-09-24 11:59 | PC.NURSE ---
Checked on pt she stated that she feels better. She feels a little shaky, but her throat feels fine. She can swallow with out any problems.
== END 2021-09-24 12:00 | disposition home or self-care (01) ==
LOC: INF 08:09
PROVIDERS: PCP Nurse Practitioner Family; Referring Provider Nurse Practitioner Family; Visit Provider Emergency Medicine
DX: U07.1 COVID-19 (principal); Z23 Encounter for immunization
CPT/HCPCS: 96365; 96374; 96375

== ENCOUNTER → 2021-12-21 10:30 | Outpatient (CLI) | payer SELFPAY ==
[2021-12-21 10:54] LABS: Microscopic, Urine URINE MICROSCOPIC (MICROSCOPIC)
[2021-12-21 12:02] LABS: Hematocrit 39.6 % (37.0-47.0); Hemoglobin 13.7 g/dL (12.2-16.2); Mean Corpuscular HGB Conc 34.7 g/dL (31.8-35.4); Mean Corpuscular Hemoglobin 28.9 pg (27.0-31.2); Mean Corpuscular Volume 83.3 fl (81-99); Platelet Count 306 K/mm3 (142-424); Red Blood Count 4.75 M/mm3 (4.20-5.40); White Blood Count 11.8 K/mm3 (4.8-10.8)
[2021-12-21 12:27] LABS: Chloride 101 mmol/L (98-107); Potassium 4.7 mmoL/L (3.5-5.1); Sodium 134 mmol/L (136-145)
[2021-12-21 12:29] LABS: Alanine Aminotransferase 16 U/L (12-78); Aspartate Amino Transferase 24 U/L (14-36); Blood Urea Nitrogen 15 mg/dl (7-17); Estimated Glomerular Filt Rate 102 ml/min (>60); GFR (African American) 123 ML/MIN (>60)
[2021-12-21 12:30] LABS: Albumin Level 3.9 g/dl (3.5-5.0); Albumin/Globulin Ratio 1.3 (1.1-1.8); Alkaline Phosphatase 87 U/L (38-126); Anion Gap 10.7 mEq/L (5-15); Bilirubin,Total 1.3 mg/dl (0.2-1.3); Calcium 8.8 mg/dl (8.4-10.2); Carbon Dioxide 27 mmol/L (22.0-30.0); Globulin 2.9 g/dL (1.3-3.2); Glucose 171 mg/dl (74-100); Total Protein,Serum 6.8 g/dl (6.3-8.2)
[2021-12-21 12:32] LABS: Hemoglobin A1C 8.9 % (4.0-6.0)
[2021-12-21 13:01] LABS: Thyroid Stimulating Hormone 1.85 uIU/mL (0.465-4.68)
[2021-12-21 18:51] LABS: Appearance,Urine CLEAR (Clear); Bilirubin,Urine Negative (Negative); Blood, Urine 1+ (Negative); Color,Urine YELLOW (Yellow); Glucose,Urine (UA) 1+ (Negative); Ketones,Urine Negative (Negative); Leukocyte Esterase,Urine TRACE (Negative); Nitrate,Urine Negative (Negative); PH,Urine 5.5 (5.0-8.5); Protein,Urine TRACE (Negative); Specific Gravity, Urine >= 1.030 (1.005-1.030); Urobilinogen,Urine 0.2 EU/dl (0.2)
[2021-12-21 19:30] LABS: Squamous Epithelial Cell,Urine Occasional #/hpf (0-5)
[2021-12-21 23:31] LABS: Uric Acid 5.9 mg/dl (2.5-6.2)
[2021-12-22 12:15] LABS: Complement C3 177 mg/dL (82-167)
[2021-12-23 10:12] LABS: Antinuclear Antibodies, IFA Negative (.)
[2021-12-24 19:16] LABS: Osmolality, Urine 671 mOsmol/kg (.)
== END ==
LOC: LAB 10:34
PROVIDERS: PCP Nurse Practitioner Family; Visit Provider Nurse Practitioner Gerontology
DX: R31.9 Hematuria, unspecified (principal); R80.9 Proteinuria, unspecified; I10 Essential (primary) hypertension; E11.65 Type 2 diabetes mellitus with hyperglycemia; Z79.4 Long term (current) use of insulin
CPT/HCPCS: 36415; 80053; 81001; 82533; 83036; 83930; 83935; 84443; 84550; 85014; 85018; 85048; 85049; 86038; 86161

== ENCOUNTER 2021-12-25 14:02 | Emergency (ER) | payer SELFPAY ==
--- NOTE | 2021-12-25 14:30 | XR_ITS ---
FINAL REPORT CLINICAL HISTORY: PAIN COMPARISON: Left hip x-ray from June 13, 2021 FINDINGS: BILATERAL HIPS 5 images were obtained. There is no acute fracture or dislocation. There is mild degenerative change of both hips and the lower lumbar spine. There is a small chronic calcification adjacent to the right ischial tuberosity, stable. IMPRESSION: No acute process. Reviewed, Interpreted and Dictated by Lex Godinez III, MD Transcribed by Manjinder Lopez Authenticated by Lex Godinez III, MD on 12/25/2021 04:36:[address] [facility]
[2021-12-25 15:35] VITALS: BP 123/73; PULSE 83; RESP 18; TEMP 37; O2SAT 98; BMI 50.8
--- NOTE | 2021-12-25 16:07 | HMH.EDUTC ---
[facility] – [place] Disposition Clinical Impression: Sciatica Qualifiers: Laterality: right Qualified Code(s): M54.31 - Sciatica, right side Disposition: Home, Self-Care Condition on Discharge: Good Instructions: Sciatica, DI for Sciatica, DI for Chronic Pain -- Adult, Methylprednisolone Additional Instructions: *Ibuprofen michelle 6 hours with meal as needed for pain/inflammation if your *Remember you had a Toradol shot in the clinic today, which is similar to Motrin *Not additional anti-inflammatory like motrin, aleve, advil with the above amount of ibuprofen. You can still take Tylenol every 4 hours as needed if you need something else for pain *Ice 20 minutes every 2 hours for the first 48 hours after the initial injury followed by moist heat every 20 minutes 3-4 times a day to affected area *Muscle relaxer every 8 hours as needed for muscle spasms but remember, it WILL cause drowsiness You cannot take it and drive, operate machinery or care for small children. *Keep this area active, no movement leads to more stiffness, However take it easy and avoid heavy lifting pushing or pulling *Follow up with you family doctor if no improvement for further treatment Prescriptions: methylPREDNISolone [Medrol 4mg tab] 4 mg PO DIRECTED #21 tab Transmission Status: Received by [facility] Referrals: Adarsh Fernández APRN [Primary Care Provider] - As needed Medical Decision Making - Abebe Inquiry Pt receiving controlled substance: No Abebe was queried for this patient: No Vital Signs: 12/25/21 15:35 Temperature 98.6 F Temperature Source Oral Pulse Rate [Right Brachial] 83 Respiratory Rate 18 Blood Pressure [Right Arm] 123/73 Blood Pressure Mean [Right Arm] 89 Blood Pressure Source [Right Arm] Automatic Cuff Blood Pressure Position [Right Arm] Sitting 02 Sat by Pulse Oximetry 98 Oxygen Delivery Method Room Air Orders (Tests/Meds): ED MEDICATIONS Discontinued Medications Generic Name Dose Route Start Last Admin Trade Name Freq PRN Reason Stop Dose Admin Ketorolac Tromethamine 60 mg 12/25/21 16:16 Ketorolac 60mg/2ml Vial IM 12/25/21 16:17 ONCE ONE Ketorolac Tromethamine 30 mg 12/25/21 16:31 Ketorolac 30mg/Ml Vial IM 12/25/21 16:32 ONCE ONE Methylprednisolone Sodium Succinate 125 mg 12/25/21 16:16 Methylprednisolone Sod Succ 125mg Vial IM 12/25/21 16:17 ONCE ONE - Radiology Data #1 Image(s): Hip (bialteral with pelvis) Image Reviewed: Yes I have reviewed radiologist's interpretation Preliminary Findings: No Fracture Seen IMPRESSION: No acute process. Medical Decision Narrative: Patient states that she is not allergic to Asprin they told her not to take it due to bleeding risk but she can take Ibuprofen and NSAIDs without complications or reactions [facility] – [place] HPI - General Stated complaint: right hip pain, trouble standing and walking Time Seen by Provider: 12/25/21 16:07 Mode of Arrival: Ambulatory Source of Information: Patient Limitations: No Limitations Description of Symptoms (Recalled from Triage Doc. by RN): PATIENT C/O TROUBLE WALKING. SHE REPORTS SHE FRACTURED HER LEFT HIP 4 MONTHS AGO AND HAS HAD PROBLEMS SINCE HEENT Symptoms (Recalled from RN notes): No Resp Symptoms (Recalled from RN notes): No Skin Symptoms (Recalled from RN notes): No MS Symptoms (Recalled from RN notes): Yes Functional Status (Recalled from RN notes): WNL - History of Present Illness Provider Complaint: Patient states that she fell several months ago and hurt her left hip States that she has had pain on and off in that hip but for the last week she has been having pain in her right buttock/hip area that hurts when she lays or sits on that side States that she hasnt fallen or anything States that today it was still hurting so she came in to get checked - Related Data Previous Rx's Medication Instructions Recorded ergocalciferol (vitamin D2) 1,250 50,000 unit PO QWEEK #10 [facility]
[2021-12-25 16:47] VITALS: BP 123/73; PULSE 83; RESP 18; TEMP 37; O2SAT 98
== END 2021-12-25 16:50 | disposition home or self-care (01) ==
PROVIDERS: Emergency Provider Nurse Practitioner; PCP Nurse Practitioner Family
DX: M54.31 Sciatica, right side (principal); I44.0 Atrioventricular block, first degree; E11.40 Type 2 diabetes mellitus with diabetic neuropathy, unspecified; G89.29 Other chronic pain; M19.90 Unspecified osteoarthritis, unspecified site; Z79.4 Long term (current) use of insulin; Z79.51 Long term (current) use of inhaled steroids; Z79.52 Long term (current) use of systemic steroids; Z79.899 Other long term (current) drug therapy; Z88.0 Allergy status to penicillin; Z88.6 Allergy status to analgesic agent; Z82.49 Family history of ischemic heart disease and other diseases of the circulatory system; Z83.438 Family history of other disorder of lipoprotein metabolism and other lipidemia
CPT/HCPCS: 73521; 96372; 99202; 99212; 99213; G0463

== ENCOUNTER → 2022-01-05 13:58 | Outpatient (POV) | payer SELFPAY | PROVIDERS: Visit Provider Internal Medicine Nephrology | DX: Z00.00 Encounter for general adult medical examination without abnormal findings (principal) ==

== ENCOUNTER → 2022-07-28 10:16 | Outpatient (CLI) | payer SELFPAY ==
[2022-07-28 10:34] LABS: Microscopic, Urine URINE MICROSCOPIC (MICROSCOPIC)
[2022-07-28 11:09] LABS: Appearance,Urine CLEAR (Clear); Bilirubin,Urine Negative (Negative); Blood, Urine 1+ (Negative); Color,Urine YELLOW (Yellow); Glucose,Urine (UA) Negative (Negative); Ketones,Urine Negative (Negative); Leukocyte Esterase,Urine 2+ (Negative); Nitrate,Urine POSITIVE (Negative); Protein,Urine Negative (Negative); Specific Gravity, Urine 1.015 (1.005-1.030); Urobilinogen,Urine 0.2 EU/dl (0.2)
[2022-07-28 11:18] LABS: Creatinine,Urine Random 111 mg/dL (Not Estab.)
[2022-07-28 13:15] LABS: Hematocrit 38.1 % (37.0-47.0); Hemoglobin 12.4 g/dL (12.2-16.2); Mean Corpuscular HGB Conc 32.6 g/dL (31.8-35.4); Mean Corpuscular Hemoglobin 27.2 pg (27.0-31.2); Mean Corpuscular Volume 83.5 fl (81-99); Platelet Count 287 K/mm3 (142-424); Red Blood Count 4.57 M/mm3 (4.20-5.40); Red Cell Distribution Width 14.5 % (11.5-17.5); White Blood Count 12.6 K/mm3 (4.8-10.8)
[2022-07-28 13:41] LABS: Alanine Aminotransferase 13 U/L (12-78); Albumin Level 3.4 g/dl (3.5-5.0); Albumin/Globulin Ratio 1.2 (1.1-1.8); Alkaline Phosphatase 105 U/L (38-126); Anion Gap 16.6 mEq/L (5-15); Aspartate Amino Transferase 29 U/L (14-36); Blood Urea Nitrogen 10 mg/dl (7-17); Calcium 8.7 mg/dl (8.4-10.2); Carbon Dioxide 24 mmol/L (22.0-30.0); Chloride 98 mmol/L (98-107); Estimated Glomerular Filt Rate 125 ml/min (>60); GFR (African American) 151 ML/MIN (>60); Globulin 2.8 g/dL (1.3-3.2); Glucose 191 mg/dl (74-100); Potassium 4.6 mmoL/L (3.5-5.1); Sodium 134 mmol/L (136-145); Total Protein,Serum 6.2 g/dl (6.3-8.2); Uric Acid 4.7 mg/dl (2.5-6.2)
[2022-07-28 13:53] LABS: Bacteria,Urine 1+ /lpf; WBC,Urine 20-50 #/hpf (0-3)
[2022-07-28 14:03] LABS: Hemoglobin A1C 10.2 % (4.0-6.0)
[2022-07-29 09:09] LABS: Antistreptolysin O Ab 84.4 IU/mL (0.0-200.0); Complement C3 190 mg/dL (82-167)
[2022-07-30 14:10] LABS: Anti-Centromere B Antibodies <0.2 AI (0.0-0.9); Anti-DNA (DS) Ab Qn <1 IU/mL (0-9); Anti-Jo-1 <0.2 AI (0.0-0.9); Anti-Smith Antibody <0.2 AI (0.0-0.9); Antichromatin Antibodies <0.2 AI (0.0-0.9); Antiscleroderma-70 Antibodies <0.2 AI (0.0-0.9); RNP Antibodies <0.2 AI (0.0-0.9); Sjogren's Anti-SS-A <0.2 AI (0.0-0.9); Sjogren's Anti-SS-B <0.2 AI (0.0-0.9)
[2022-07-31 08:15] LABS: Cytoplasmic (C-ANCA) 1:20 titer (Neg:<1:20); Perinuclear (P-ANCA) <1:20 titer (Neg:<1:20)
[2022-08-11 17:36] LABS: Anti-Glomerular Basement Membr < 20
== END ==
LOC: LAB 10:17
PROVIDERS: Internal Medicine Nephrology; PCP Family Medicine; Visit Provider Nurse Practitioner Gerontology
DX: R31.9 Hematuria, unspecified (principal); R80.9 Proteinuria, unspecified; I10 Essential (primary) hypertension; E11.65 Type 2 diabetes mellitus with hyperglycemia; Z79.4 Long term (current) use of insulin
CPT/HCPCS: 36415; 80053; 81001; 82570; 83036; 83516; 84155; 84550; 85014; 85018; 85048; 85049; 86060; 86161; 86225; 86235; 86256; 87086; 87088; 87186

== ENCOUNTER → 2022-07-30 13:22 | Outpatient (CLI) | payer SELFPAY ==
--- NOTE | 2022-07-30 13:25 | US_ITS ---
FINAL REPORT TECHNIQUE: Ultrasound images of the kidneys and bladder were obtained. CLINICAL HISTORY: HYPERTENSION. TYPE 2 DABETES. FINDINGS: The right kidney measures 13 cm in length. It is normal in echogenicity. There is no hydronephrosis. The left kidney measures 12 cm in length. It is normal in echogenicity. There is no hydronephrosis. The urinary bladder is unremarkable. Spleen measures 10 cm in length and is within normal limits. IMPRESSION: No hydronephrosis. Reviewed, Interpreted and Dictated by Ivan Luther MD Transcribed by Kellee Anguiano Authenticated and [facility]
== END ==
LOC: RAD 13:22
PROVIDERS: PCP Internal Medicine Nephrology; Visit Provider Internal Medicine Nephrology
DX: R31.9 Hematuria, unspecified (principal); E11.65 Type 2 diabetes mellitus with hyperglycemia; I10 Essential (primary) hypertension; Z79.4 Long term (current) use of insulin
CPT/HCPCS: 76770

== ENCOUNTER → 2022-08-03 14:32 | Outpatient (POV) | payer SELFPAY | LOC: SC 14:32 | PROVIDERS: Visit Provider Internal Medicine Nephrology | DX: R31.9 Hematuria, unspecified (principal); I10 Essential (primary) hypertension; E11.65 Type 2 diabetes mellitus with hyperglycemia; Z79.4 Long term (current) use of insulin; B96.1 Klebsiella pneumoniae [K. pneumoniae] as the cause of diseases classified elsewhere | CPT/HCPCS: 87086; 87088; 87186 ==

== ENCOUNTER → 2022-08-09 15:47 | Outpatient (CLI) | payer SELFPAY | LOC: LAB.DROPOF 08-10 06:34 | PROVIDERS: PCP Family Medicine; Visit Provider Family Medicine | DX: R82.90 Unspecified abnormal findings in urine (principal); B95.2 Enterococcus as the cause of diseases classified elsewhere | CPT/HCPCS: 87086; 87088; 87186 ==

== ENCOUNTER 2022-08-11 18:46 | Observation (INO) | payer SELFPAY ==
[2022-08-11] VITALS (9 sets, daily range): BP systolic 116–138; BP diastolic 64–78; PULSE 110–125; RESP 16–18; TEMP 36.9; O2SAT 90–97; BMI 36.6
--- NOTE | 2022-08-11 19:09 | ECG_ITS ---
APPROVED REPORT Exam: Resting ECG HR:121 bpm ECG Measurements Heart Rate 121 AXES QRSd 152 QRS -15 QT 362 T 19 QTc 434 Conclusion ATRIAL FLUTTER/TACHYCARDIA WITH RAPID VENTRICULAR RESPONSE RIGHT BUNDLE BRANCH BLOCK [120+ ms QRS DURATION, UPRIGHT V1, 40+ ms S IN I/aVL/V4/V5/V6] ABNORMAL ECG UNCONFIRMED REPORT Electronically signed by : Ag Blas MD 08/12/2022 16:40:11
[2022-08-11 19:20] LABS: Basophils % 0.4 % (0.1-2.0); Eosinophils # 0.1 K/mm3 (0.0-0.4); Eosinophils % 0.8 % (0.1-12.0); Hematocrit 38.3 % (37.0-47.0); Lymphocytes # 0.8 K/mm3 (0.7-4.5); MANUAL DIFFERENTIAL MANUAL DIFFERENTIAL (MANUAL DIFF); Mean Corpuscular HGB Conc 34.1 g/dL (31.8-35.4); Mean Corpuscular Hemoglobin 28.4 pg (27.0-31.2); Mean Corpuscular Volume 83.2 fl (81-99); Mean Platelet Volume 7.9 fl (7.4-10.4); Monocytes # 0.6 K/mm3 (0.1-1.0); Monocytes % 5.3 % (1.7-9.3); Neutrophils # 9.8 K/mm3 (1.8-7.8); Neutrophils % 86.5 % (37.0-80.0); Platelet Count 283 K/mm3 (142-424); Red Cell Distribution Width 14.4 % (11.5-17.5); White Blood Count 11.3 K/mm3 (4.8-10.8)
[2022-08-11 19:21] LABS: Chloride 94 mmol/L (98-107); Sodium 131 mmol/L (136-145)
[2022-08-11 19:23] LABS: Alanine Aminotransferase 18 U/L (12-78); Alkaline Phosphatase 101 U/L (38-126); Aspartate Amino Transferase 41 U/L (14-36); Bilirubin,Total 0.9 mg/dl (0.2-1.3); Blood Urea Nitrogen 16 mg/dl (7-17); Creatinine Clearance Estimated 84 mL/min (50-200); Estimated Glomerular Filt Rate 73 ml/min (>60); GFR (African American) 88 ML/MIN (>60)
[2022-08-11 19:24] LABS: Albumin Level 3.9 g/dl (3.5-5.0); Albumin/Globulin Ratio 1.2 (1.1-1.8); Calcium 8.9 mg/dl (8.4-10.2); Carbon Dioxide 27 mmol/L (22.0-30.0); Globulin 3.2 g/dL (1.3-3.2); Glucose 278 mg/dl (74-100); Total Protein,Serum 7.1 g/dl (6.3-8.2)
[2022-08-11 19:29] LABS: C-Reactive Protein 52.6 mg/L (0-4)
[2022-08-11 19:33] LABS: Microscopic, Urine URINE MICROSCOPIC (MICROSCOPIC)
[2022-08-11 19:35] LABS: Appearance,Urine SL CLOUDY (Clear); Bilirubin,Urine Negative (Negative); Blood, Urine 3+ (Negative); Color,Urine DK YELLOW (Yellow); Glucose,Urine (UA) 1+ (Negative); Ketones,Urine TRACE (Negative); Leukocyte Esterase,Urine 2+ (Negative); Nitrate,Urine Negative (Negative); PH,Urine 5.5 (5.0-8.5); Protein,Urine TRACE (Negative); Specific Gravity, Urine 1.025 (1.005-1.030); Urobilinogen,Urine 0.2 EU/dl (0.2)
[2022-08-11 19:39] LABS: Urine Pregnancy, HCG Qual. Negative (Negative)
[2022-08-11 19:44] LABS: Lactic Acid 1.8 mmol/L (0.7-2.1)
[2022-08-11 19:53] LABS: Erythrocyte Sedimentation Rate 79 mm/hr (0-30)
[2022-08-11 19:54] LABS: Lymphocytes % 10 % (10-50); Monocytes % 2 % (2-9); Neutrophils % 79 % (42-76); Total Cells Counted 100
[2022-08-11 19:55] LABS: Platelet Estimate Normal; RBC Morphology Normal; Rouleaux 3+; Toxic Granulation 1+
[2022-08-11 19:57] LABS: Bacteria,Urine 1+ /lpf; RBC,Urine TNTC #/hpf (0-3)
--- NOTE | 2022-08-11 20:44 | HMH.EDWEAK ---
Discharge Plan Disposition Patient Disposition: Admitted As Inpatient Chief Complaint: Weakness Clinical Impressions Clinical Impression: Diabetes mellitus, Type 2 diabetes mellitus with peripheral neuropathy, Neuropathy, UTI (urinary tract infection), Obesity (BMI 30-39.9), Diverticulitis large intestine, RBBB Discharge ED Provider: Thee Alston Weakness HPI General Chief complaint: Weakness Stated complaint: weakness Time Seen by Provider: 08/11/22 20:00 Mode of Arrival: EMS Source of Information: Patient, Spouse, EMS and Medical Record Limitations: No Limitations Description of Symptoms (Recalled from ER Triage Doc. by RN): Pt reports weakness and being shaky today. Pt denies falls or injury. She is currently being treated for a UTI for a week. Pt denies abd pain, N/V/D, fevers, syncope. History of Present Illness HPI Narrative: generalized weakness and feels shakey with hx of uti -has known diabetes and reports dec ambulation sec to weakness Complaint: generalized weakness Onset (ago): day(s) Duration: intermittent Migration: none Severity: moderate Associated symptoms: denies other symptoms Related Data Home Medications Medication Instructions Recorded Confirmed lisinopril 10 mg tablet 10 mg PO DAILY High blood pressure 06/21/22 08/11/22 atorvastatin 10 mg tablet 10 mg PO DAILY Cholesterol 08/11/22 08/11/22 cyclobenzaprine 10 mg tablet 10 mg PO TID Anxiety 08/11/22 08/11/22 ergocalciferol (vitamin D2) 1,250 50,000 unit PO QWEEK Supplement 08/11/22 08/11/22 mcg (50,000 unit) capsule insulin aspart U-100 100 unit/mL 20 unit SQ TID Diabetes 08/11/22 08/11/22 (3 mL) subcutaneous pen (Novolog Flexpen U-100 Insulin aspart) insulin glargine U-300 conc 300 See Rx Instructions .Route 08/11/22 08/11/22 unit/mL (1.5 mL) subcutaneous pen .COMPLEX Diabetes (Toujeo SoloStar U-300 Insulin) metoprolol succinate 50 mg 50 mg PO DAILY High blood pressure 08/11/22 08/11/22 tablet,extended release 24 hr (Toprol XL) montelukast 10 mg tablet 10 mg PO DAILY Allergy symptoms 08/11/22 08/11/22 (Singulair) nitrofurantoin 100 mg PO BID UTI 08/11/22 08/11/22 monohydrate/macrocrystals 100 mg capsule (Macrobid) pantoprazole 40 mg tablet,delayed 40 mg PO DAILY GERD 08/11/22 08/11/22 release (Protonix) Previous Rx's Medication Instructions Recorded albuterol sulfate 90 mcg/actuation 2 puffs inhalation Q6HP PRN 09/21/21 aerosol inhaler Shortness Of Breath 30 days #1 ea gabapentin 600 mg tablet 600 mg PO QID PRN Pain 30 days 04/02/22 #120 tabs Allergies Allergy/AdvReac Type Severity Reaction Status Date / Time amoxicillin Allergy Verified 08/09/22 15:47 aspirin [ASPIRIN] AdvReac Unknown Verified 08/09/22 15:47 PFSH PFSH Medical History 1st degree AV block Chest pain Diabetes mellitus Dyspnea Gastroesophageal reflux disease History of second hand smoke exposure Left arm pain Neuropathy Type 2 diabetes mellitus with peripheral neuropathy Social History Smoking Status: Never smoker alcohol intake: never counseling provided: none substance use type: denies use current occupational status: disabled Travel in the last 8 weeks: Inside the [place] household members: spouse housing: house ROS Obtained: Yes All systems reviewed & no additional complaints except as documented Constitutional Constitutional: Denies fever(s) and Reports weakness Neurologic Neurologic: Reports weakness Physical Exam General General appearance: alert and obese Head Head exam: normocephalic Eye Eye exam: Present PERRL and EOMI; Absent scleral icterus ENT ENT exam: Present mucous membranes dry Neck Neck exam: Present trachea midline; Absent full ROM Respiratory Respiratory exam: Present normal lung sounds bilaterally Cardiovascular Cardiovascular exam: Present tachycard
[2022-08-11 21:29] LABS: Coronavirus 19, PCR Not Detected (NotDetected); Influenza A, PCR Not Detected (NotDetected); Influenza B, PCR Not Detected (NotDetected)
--- NOTE | 2022-08-11 21:34 | PC.NURSE ---
COVID SWAB SENT TO LAB
--- NOTE | 2022-08-11 21:56 | CT_ITS ---
PROCEDURE INFORMATION: Exam: CT Abdomen And Pelvis Without Contrast Exam date and time: 08/11/2022 10:20 PM Age: 62 years old Clinical indication: Abdominal pain; Generalized; Additional info: Abdomen pain , UTI, weakness TECHNIQUE: Imaging protocol: Computed tomography of the abdomen and pelvis without contrast. Radiation optimization: All CT scans at this facility use at least one of these dose optimization techniques: automated exposure control; mA and/or kV adjustment per patient size (includes targeted exams where dose is matched to clinical indication); or iterative reconstruction. COMPARISON: [facility] CT abdomen pelvis wo con 02/02/2019 9:59 PM FINDINGS: Limitations: Evaluation is limited by lack of contrast. Tubes, catheters and devices: Bilateral tubal occlusion devices. Lungs: 4 mm nodule within the right lower lobe (axial lung series image 7). Pleural spaces: No pleural effusion. Heart: The visualized heart is normal. No pericardial effusion. Liver: The liver is diffusely hypodense, consistent with steatosis. Gallbladder and bile ducts: The gallbladder is absent. No intra or extrahepatic biliary ductal dilation. Minimal pneumobilia. Pancreas: The pancreas is unremarkable. Spleen: The spleen is unremarkable. Adrenal glands: The adrenal glands are normal. Kidneys and ureters: The kidneys have expected non-contrast appearance without hydronephrosis. The ureters have normal course and caliber without stone. Stomach and bowel: The stomach is normal. The small bowel has normal course and caliber. There is scattered colonic diverticula with a segment of wall thickening and pericolonic inflammatory stranding at the junction of the sigmoid and descending colon, most consistent with acute diverticulitis. Appendix: No evidence of appendicitis. Intraperitoneal space: No significant peritoneal free fluid. No free peritoneal air. Vasculature: The vasculature demonstrates diffuse mild atherosclerotic calcification. No aortic aneurysm. Lymph nodes: Multiple enlarged lymph nodes within the left lower quadrant and along the bilateral iliac, para-aortic and pericaval regions. The largest lymph node measures 18 mm in short axis (axial series image 61). Urinary bladder: The bladder is normal without focal wall thickening. Reproductive: Unremarkable as visualized. Bones/joints: Multilevel degenerative type changes of the spine. No acute osseous abnormality. Soft tissues: There is a small fat-containing umbilical hernia. Otherwise, the superficial soft tissues are unremarkable. IMPRESSION: 1. Findings concerning for uncomplicated acute diverticulitis. As an underlying malignancy cannot be entirely excluded, a follow-up examination after a course of treatment is recommended. 2. Enlarged uterus, which has increased in size from comparison study. Recommend correlation with history and further evaluation with short interval nonemergent pelvic ultrasound. 3. Enlarged bilateral iliac, pericaval, periaortic lymph nodes are indeterminate. Recommend correlation with history/physical exam/laboratory analysis, and short interval follow-up with contrast to document resolution. 4. Hepatic steatosis. 5. A 4 mm pulmonary nodule within the right lower lobe. As per Fleischner Society guidelines for follow-up and management of pulmonary nodules less than 6 mm: For patients at low risk (minimal or absent history of smoking and of other known risk factors), no follow-up needed. For patients at high risk (history of smoking or of other known risk factors), consider follow-up chest CT at 12 months. 6. Other findings as above. Electronically signed by Rene
--- NOTE | 2022-08-11 23:48 | PC.NURSE ---
Radiology called and said they contacted [facility] in regards to long wait time on CT report. [facility] said they were behind. Pt updated and asked if pt could have something to eat from the vending machine. ok with this. No other needs stated at this time.
[2022-08-12] VITALS (10 sets, daily range): BP systolic 119–151; BP diastolic 60–77; PULSE 115–124; RESP 16–22; TEMP 36.6–37.2; O2SAT 92–97; BMI 35.2
--- NOTE | 2022-08-12 02:04 | PC.NURSE ---
PT TO FLOOR VIA STRETCHER AT [id number].
[2022-08-12 03:11] LABS: POC Glucose,Bedside 266 (70-110)
[2022-08-12 05:22] LABS: POC Glucose,Bedside 232 (70-110)
--- NOTE | 2022-08-12 05:45 | PC.NURSE ---
pt admitted this shift. A&OX4. reports feeling very weak and unable to get out of bed at this time. FSBS this am was 232, insulin given per jan. pt has c/o some pain in her hips, acetaminophen given per jan. pt has remained on RA with O2 sats >90%. CB in reach.
[2022-08-12 07:54] LABS: Basophils # 0.1 K/mm3 (0-0.2); Basophils % 0.5 % (0.1-2.0); Eosinophils # 0.1 K/mm3 (0.0-0.4); Eosinophils % 0.9 % (0.1-12.0); Hematocrit 33.1 % (37.0-47.0); Lymphocytes # 1.4 K/mm3 (0.7-4.5); Lymphocytes % 12.2 % (10-50); Mean Corpuscular Hemoglobin 27.9 pg (27.0-31.2); Mean Corpuscular Volume 82.1 fl (81-99); Mean Platelet Volume 8.1 fl (7.4-10.4); Monocytes # 0.6 K/mm3 (0.1-1.0); Neutrophils # 9.5 K/mm3 (1.8-7.8); Neutrophils % 81.5 % (37.0-80.0); Platelet Count 252 K/mm3 (142-424); Red Blood Count 4.03 M/mm3 (4.20-5.40); Red Cell Distribution Width 14.6 % (11.5-17.5); White Blood Count 11.6 K/mm3 (4.8-10.8)
[2022-08-12 07:56] LABS: Chloride 98 mmol/L (98-107)
[2022-08-12 07:57] LABS: Potassium 3.7 mmoL/L (3.5-5.1); Sodium 132 mmol/L (136-145)
[2022-08-12 08:00] LABS: Anion Gap 10.7 mEq/L (5-15); Blood Urea Nitrogen 12 mg/dl (7-17); Calcium 8.1 mg/dl (8.4-10.2); Carbon Dioxide 27 mmol/L (22.0-30.0); Creatinine Clearance Estimated 94 mL/min (50-200); Estimated Glomerular Filt Rate 125 ml/min (>60); GFR (African American) 151 ML/MIN (>60); Glucose 215 mg/dl (74-100); Hemoglobin 11.3 g/dL (12.2-16.2)
--- NOTE | 2022-08-12 08:49 | P.CONPHA_ITS ---
[facility] Pharmacy VTE Monitoring Patient Demographics Admission date: 08/12/22 Report Date: 08/12/22 Time: 08:49 Patient Allergies amoxicillin Allergy (Verified 08/09/22 15:47) Sulfa (Sulfonamide Antibiotics) Adverse Reaction (Severe, Verified 08/12/22 02 :15) Anaphylaxis aspirin [ASPIRIN] Adverse Reaction (Unknown, Verified 08/09/22 15:47) Height: 1.7 m Weight: 101.922 kg Current Active Problems (Updated 08/12/22 @ 02:34 by Kelsey Pitts RN) UTI (urinary tract infection) (Acute) Obesity (BMI 30-39.9) (Acute) Diverticulitis large intestine (Acute) RBBB (Acute) Type 2 diabetes mellitus with peripheral neuropathy (Chronic) Neuropathy (Chronic) Diabetes mellitus (Chronic) VTE Risk Labs: VTE Related Lab Results Hgb 11.3 g/dL (12.2-16.2) L D 08/12/22 07:10 Hct 33.1 % (37.0-47.0) L 08/12/22 07:10 Plt Count 252 K/mm3 (142-424) 08/12/22 07:10 BUN 12 mg/dl (7-17) 08/12/22 07:10 Creatinine 0.50 mg/dl (0.52-1.04) L D 08/12/22 07:10 Estimated Creat Clear 94 mL/min (50-200) 08/12/22 07:10 Prophylaxis VTE Prophylaxis Ordered?: Yes Types of VTE Prophylaxis: TEDS Knee High Location of Applied Device: Bilateral Lower Extremeties
--- NOTE | 2022-08-12 08:55 | HMH.PHAINT1 ---
Pharmacy Intervention Comments: MEDICATION RECONCILIATION COMPLETED ON PATIENT USING EXTERNAL FILL HISTORY FROM PHARMACY AND LIST FROM PCP OFFICE. -AB MONSALVE, MORIAHD
--- NOTE | 2022-08-12 09:05 | EXP.HP ---
History of Present Illness *Admission Date: 08/12/22 *Reason for visit:: weakness *History of present illness: pt presented to the ed with progressive weakness and dec adl including ambulation and had ongoing uti and diverticulitis and was admitted for ivf and abx - PFSH [facility] Medical History (Updated 08/12/22 @ 02:34 by Kelsey Pitts RN) 1st degree AV block Allergies Asthma Chest pain Diabetes mellitus Diabetes mellitus, type 2 Dyspnea Gastroesophageal reflux disease History of second hand smoke exposure Hyperlipidemia Hypertension Left arm pain Neuropathy Pneumonia Type 2 diabetes mellitus with peripheral neuropathy Surgical History (Updated 08/12/22 @ 02:37 by Kelsey Pitts RN) History of appendectomy History of cholecystectomy History of colonoscopy Social History (Updated 08/12/22 @ 02:37 by Kelsey Pitts RN) Smoking Status: Never smoker alcohol intake: never counseling provided: none substance use type: denies use current occupational status: disabled Travel in the last 8 weeks: Inside the [place] household members: spouse housing: house Review of Systems Review of Systems Review of systems:: pertinent systems reviewed and negative unless documented below Constitutional Constitutional: Reports weakness *Neurologic Neurologic: Reports weakness Meds Home Medications and Allergies Home Medications Medication Instructions Recorded Confirmed Type albuterol sulfate 90 mcg/actuation 2 puffs inhalation Q6HP PRN 09/21/21 08/11/22 Rx aerosol inhaler Shortness Of Breath 30 days #1 ea gabapentin 600 mg tablet 600 mg PO QID PRN Pain 30 days 04/02/22 08/11/22 Rx #120 tabs lisinopril 10 mg tablet 10 mg PO DAILY High blood pressure 06/21/22 08/11/22 History atorvastatin 10 mg tablet 10 mg PO DAILY Cholesterol 08/11/22 08/11/22 History cyclobenzaprine 10 mg tablet 10 mg PO TID MUSCLE SPASM 08/11/22 08/11/22 History ergocalciferol (vitamin D2) 1,250 50,000 unit PO WEEKLY Supplement 08/11/22 08/12/22 History mcg (50,000 unit) capsule insulin aspart U-100 100 unit/mL 20 unit SQ TID Diabetes 08/11/22 08/11/22 History (3 mL) subcutaneous pen (Novolog Flexpen U-100 Insulin aspart) insulin glargine U-300 conc 300 35 unit SQ HS Diabetes 08/11/22 08/12/22 History unit/mL (1.5 mL) subcutaneous pen (Touomiranjeet SoloStar U-300 Insulin) metoprolol succinate 50 mg 50 mg PO DAILY High blood pressure 08/11/22 08/11/22 History tablet,extended release 24 hr (Toprol XL) montelukast 10 mg tablet 10 mg PO PM Allergy symptoms 08/11/22 08/12/22 History (Singulair) pantoprazole 40 mg tablet,delayed 40 mg PO DAILY GERD 08/11/22 08/11/22 History release (Protonix) New Prescriptions to Start Prescriptions: Allergies Allergy/AdvReac Type Severity Reaction Status Date / Time amoxicillin Allergy Verified 08/09/22 15:47 Sulfa (Sulfonamide AdvReac Severe Anaphylaxis Verified 08/12/22 02:15 Antibiotics) aspirin [ASPIRIN] AdvReac Unknown Verified 08/09/22 15:47 Exam Data for Last 24 hours Vital signs and Labs for Last 24 Hours: Temp Pulse Resp BP Pulse Ox 98.4 F 115 H 18 137/60 97 08/12/22 07:48 08/12/22 07:48 08/12/22 07:48 08/12/22 07:48 08/12/22 07:48 Laboratory Results - last 24 hr 08/11/22 19:06: WBC 11.3 H, RBC 4.60, Hgb 13.0, Hct 38.3, MCV 83.2, MCH 28.4, MCHC 34.1, RDW 14.4, Plt Count 283, MPV 7.9, Neut % (Auto) 86.5 H, Lymph % (Auto) 7.0 L, [place] % (Auto) 5.3, Eos % (Auto) 0.8, Baso % (Auto) 0.4, Neut # (Auto) 9.8 H, Lymph # (Auto) 0.8, [place] # (Auto) 0.6, Eos # (Auto) 0.1, Baso # (Auto) 0.0, Total Counted 100, Neutrophils % (Manual) 79 H, Band Neutrophils % 9.0 H, Lymphocytes % (Manual) 10, Monocytes % (Manual) 2, Toxic Granulation 1+, Platelet Estimate Normal, RBC Morphology Normal, Rouleaux 3+, ESR 79 H 08/11/22 19:06: Sodium 131 L, Potassium 4.0, Chloride 94 L, Carbon Dioxide 27, Anion Gap 14.0, BUN 16, Creatinine
--- NOTE | 2022-08-12 09:30 | PC.NURSE ---
pt has call light within reach. No further requests at his time. pt states she is going to take a nap. Shikha Barnett SRNA
[2022-08-12 11:30] LABS: POC Glucose,Bedside 261 (70-110)
--- NOTE | 2022-08-12 11:57 | PC.NURSE ---
pt had 1 unmeasured void
--- NOTE | 2022-08-12 13:08 | PC.NURSE ---
Patient request Gabapentin as she takes it at home for pain in her legs. Reckristina v.o. from Dr. Blas for Gabapentin 600mg PO QID PRN
[2022-08-12 16:14] LABS: POC Glucose,Bedside 232 (70-110)
--- NOTE | 2022-08-12 16:51 | PC.NURSE ---
Patient VSS, FSBS coverage 4 units for lunch and dinner. B/L lung sounds clear. Patient using purewick and tech notice blood tinge color in canister notified nurse. 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 Patient out of bed walked to bathroom with walker and showered today. Shows no s/s of acute distress noted, call light within reach, bed at lowest level for safety.
[2022-08-12 20:35] LABS: POC Glucose,Bedside 267 (70-110)
--- NOTE | 2022-08-12 22:08 | PC.NURSE ---
pt able to walk to bathroom with walker and standby assist and tolerates well.
[2022-08-13 04:00] VITALS: BP 126/70; PULSE 116; RESP 16; TEMP 36.7; O2SAT 94
--- NOTE | 2022-08-13 04:50 | PC.NURSE ---
pt c/o hip pain one time this shift. was medicated prn per jan. she is a&oX4. lung sounds clear. remains on RA and tolerates well. O2 sats have been around 94%. HR remains elevated and has been 115-116 when VS taken. she has used the toilet and ambulated with a walker and standby assist. blood noted in toilet after pt voided, pt states she is on her period. NS infusing at 100 ml/hr. IV in left AC was D/C this shift d/t difficulty flushing and pt stating it was hurting. 20G IV was started in the right hand. bed alarm is on and functioning for safety, and call light is within reach.
[2022-08-13 05:00] VITALS: BMI 33.5
[2022-08-13 05:57] LABS: POC Glucose,Bedside 214 (70-110)
[2022-08-13 07:34] LABS: Basophils # 0.1 K/mm3 (0-0.2); Basophils % 0.6 % (0.1-2.0); Eosinophils # 0.2 K/mm3 (0.0-0.4); Hematocrit 35.9 % (37.0-47.0); Hemoglobin 11.8 g/dL (12.2-16.2); Lymphocytes # 2.1 K/mm3 (0.7-4.5); Lymphocytes % 13.3 % (10-50); Mean Corpuscular HGB Conc 32.8 g/dL (31.8-35.4); Mean Corpuscular Volume 82.5 fl (81-99); Mean Platelet Volume 8.1 fl (7.4-10.4); Monocytes # 0.7 K/mm3 (0.1-1.0); Monocytes % 4.3 % (1.7-9.3); Neutrophils # 12.6 K/mm3 (1.8-7.8); Neutrophils % 80.8 % (37.0-80.0); Platelet Count 282 K/mm3 (142-424); Red Blood Count 4.36 M/mm3 (4.20-5.40); Red Cell Distribution Width 14.4 % (11.5-17.5); White Blood Count 15.6 K/mm3 (4.8-10.8)
[2022-08-13 07:37] LABS: MANUAL DIFFERENTIAL MANUAL DIFFERENTIAL (MANUAL DIFF)
[2022-08-13 07:38] LABS: Chloride 96 mmol/L (98-107); Potassium 3.8 mmoL/L (3.5-5.1); Sodium 133 mmol/L (136-145)
[2022-08-13 07:40] LABS: Blood Urea Nitrogen 6 mg/dl (7-17); Creatinine Clearance Estimated 89 mL/min (50-200); Estimated Glomerular Filt Rate 125 ml/min (>60); GFR (African American) 151 ML/MIN (>60)
[2022-08-13 07:41] LABS: Alanine Aminotransferase 15 U/L (12-78); Albumin Level 3.2 g/dl (3.5-5.0); Alkaline Phosphatase 75 U/L (38-126); Anion Gap 12.8 mEq/L (5-15); Aspartate Amino Transferase 35 U/L (14-36); Bilirubin,Total 0.4 mg/dl (0.2-1.3); Calcium 8.3 mg/dl (8.4-10.2); Carbon Dioxide 28 mmol/L (22.0-30.0); Globulin 3.2 g/dL (1.3-3.2); Glucose 215 mg/dl (74-100); Total Protein,Serum 6.4 g/dl (6.3-8.2)
[2022-08-13 08:00] VITALS: BP 141/61; PULSE 115; RESP 19; TEMP 36.8; O2SAT 96
[2022-08-13 08:08] LABS: Lymphocytes % 12 % (10-50); Monocytes % 8 % (2-9); Neutrophils % 80 % (42-76); Total Cells Counted 100
[2022-08-13 08:09] LABS: Platelet Estimate Normal; RBC Morphology Normal
--- NOTE | 2022-08-13 09:49 | HMH.OTEV ---
OT Inpatient Evaluation Rehab OT IP Evaluation Start: 08/13/22 08:05 Freq: ONCE Status: Complete Protocol: Document 08/13/22 09:43 [facility] (Rec: 08/13/22 09:49 [facility] [id number]) Rehab OT IP Assessment Subjective History Pt oriented x 4 on arrival. Pt agreeable to engage in therapy session. Pt was admitted via ED on 08/11/22 due to weakness and UTI. Prior to being in the hospital, pt lived with her and son . Both and son were home with patient 03/06. Pt claims she was independent with all ADLs and IADLs prior to hospital admission. Pt used a walker at times when out in the community. Pt has a past medical history of: 1st degree AV block Allergies Asthma Chest pain Diabetes mellitus Diabetes mellitus, type 2 Dyspnea Gastroesophageal reflux disease History of second hand smoke exposure Hyperlipidemia Hypertension Left arm pain Neuropathy Pneumonia Type 2 diabetes mellitus with peripheral neuropathy Subjective I am hoping to go home. Objective Patient Orientation Person,Place,Birthday Upper Extremity Gross ROM WFL Bed Mobility bed mobility-scooting,bed mobility - supine/sit,bed mobility - rolling Assist Level Independent Transfer Training Sit/Stand Transfer Assist Level Supervision/Stand by Chair Transfer Ability Supervision/Stand by Chair Transfer Technique Sit to/from Ambulatory Chair Transfer Assistive Devices Rolling Walker Lower Body Dressing Ability Standby Assistance Performing Toilet Hygiene Ability Standby Assistance Overall Commode/Toilet Transfer Ability Standby Assistance Commode/Toilet Transfer Technique Sit to/from Ambulatory Rehab OT IP prob,goals,plan Problems Date
--- NOTE | 2022-08-13 11:08 | HMH.PTEV ---
Physical Therapy Evaluation Rehab PT IP Evaluation Start: 08/13/22 08:04 Freq: ONCE Status: Active Protocol: Document 08/13/22 11:02 MARILYN (Rec: 08/13/22 11:08 MARILYN [id number]) Subjective/History History History THis is the initial IP PT evaluation for Alexy Merrill . Pt is a 62 y/o female admitted to [facility] through ED for progressive weakness. Subjective Subjective Pt reports no new complaints Rehab PT IP Eval Objective Appearance Patient Behavior Appropriate,Cooperative Patient Orientation Person,Place,Time,Situation Difficulty following instructions none Speech Pattern Clear,Appropriate Ambulation Patient Able to Ambulate Yes Ambulation Observation IP General Gait Pattern Observation Shuffling Step Ambulation Distance (feet) 50 Ambulation Assistive Device Rolling Walker Ambulation Ability Independent,Supervision/Stand by Balance Ability to Arise Able, uses arms to help Sitting Balance Steady, safe Standing Balance Steady, wide stance Dynamic Sitting Balance Ability Normal Dynamic Standing Balance Ability Good Transfers Bed Transfer Ability Independent Chair Transfer Ability Independent Sit to Stand Bed Transfer Ability Independent Sit to Stand Chair Transfer Ability Independent Rehab PT IP prob,goals,plan Problems Date of Evaluation: 08/13/22 Rehab Potential Rehab Potential Innapropriate for Skilled Therapy Discharge Plan PT Discharge Plan Pt has no skilled therapy needs at this time - pt safe to return home w/ spouse and family upon dc G -code Required No Eval Complexity Eval Charge Codes 18083 - Moderate Complexity PHYSICIAN CERTIFICATION: I certify the specified therapy services for Alexy Merrill are required, authorized, and reviewed every 30 days.
[2022-08-13 11:40] LABS: POC Glucose,Bedside 287 (70-110)
--- NOTE | 2022-08-13 12:55 | EXP.DC.SUM ---
General Admission date:: 08/12/22 Discharge date: 08/13/22 HPI HPI HPI: pt presented to the ed with progressive weakness and dec adl including ambulation and had ongoing uti and diverticulitis and was admitted for ivf and abx - Hospital Course Hospital Course Hospital Course: pt has did well with ivf and abx - pt with stable labs and was able to mark act and diet Exam Data for Last 24 hours Vital signs and Labs for Last 24 Hours: Temp Pulse Resp BP Pulse Ox 98.2 F 115 H 19 141/61 H 96 08/13/22 08:00 08/13/22 08:00 08/13/22 08:00 08/13/22 08:00 08/13/22 08:00 Laboratory Results - last 24 hr 08/12/22 16:07: POC Glucose 232 H 08/12/22 20:15: POC Glucose 267 H 08/13/22 05:48: POC Glucose 214 H 08/13/22 07:10: WBC 15.6 H D, RBC 4.36, Hgb 11.8 L, Hct 35.9 L, MCV 82.5, MCH 27.0, MCHC 32.8, RDW 14.4, Plt Count 282, MPV 8.1, Neut % (Auto) 80.8 H, Lymph % (Auto) 13.3, [place] % (Auto) 4.3, Eos % (Auto) 1.0, Baso % (Auto) 0.6, Neut # (Auto) 12.6 H, Lymph # (Auto) 2.1, [place] # (Auto) 0.7, Eos # (Auto) 0.2, Baso # (Auto) 0.1, Total Counted 100, Neutrophils % (Manual) 80 H, Lymphocytes % (Manual) 12, Monocytes % (Manual) 8, Platelet Estimate Normal, RBC Morphology Normal 08/13/22 07:10: Sodium 133 L, Potassium 3.8, Chloride 96 L, Carbon Dioxide 28, Anion Gap 12.8, BUN 6 L D, Creatinine 0.50 L, Estimated Creat Clear 89, Estimated GFR 125, Est GFR ( Amer) 151, Glucose 215 H, Calcium 8.3 L, Total Bilirubin 0.4, AST 35, ALT 15, Alkaline Phosphatase 75, Total Protein 6.4, Albumin 3.2 L, Globulin 3.2, Albumin/Globulin Ratio 1.0 L 08/13/22 11:32: POC Glucose 287 H I & O for Last 24 hours: Intake & Output 08/11/22 08/12/22 08/13/22 08/14/22 11:59 11:59 11:59 11:59 Intake Total 1530 / 1530 2847 / 2847 Output Total 0 / 0 300 / 300 Balance 1530 / 1530 2547 / 2547 Weight 224 lb 11.193 oz 213 lb 9.6 oz Microbiology Reports for the Last 24 Hours: Microbiology 08/11/22 19:28 Urine,Clean Catch Urine Culture - Preliminary Constitutional Constitutional: no acute distress and obese *Routine HEENT Exam Head: Present normocephalic Eye: Present EOMI and PERRL ENT: Present mucous membranes moist Comments: poor dentition *Routine Neck Exam Neck: Absent JVD *Routine Respiratory Exam Respiratory: Present decreased breath sounds *Routine Cardiovascular Exam Cardiovascular: Present RRR and murmur *Routine Abdominal Exam Abdominal: Present soft; Absent tenderness *Routine Rectal Exam Patient deferred: visual exam and digital exam *Routine Exam Patient deferred: external exam, groin exam and perineal exam *Routine Extremities Exam Extremities: Absent edema *Routine Skin Exam Skin: Present intact *Routine Neurological Exam Neurological: Present alert, oriented X3, CN II-XII intact and moving all extremities Routine Psychiatric Exam Psychiatric: Present cooperative Results Data Completed and Pending Labs on day of discharge: Labs from last 24 hours 08/13/22 08/13/22 08/13/22 11:32 07:10 07:10 WBC 15.6 H D RBC 4.36 Hgb 11.8 L Hct 35.9 L MCV 82.5 MCH 27.0 MCHC 32.8 RDW 14.4 Plt Count 282 MPV 8.1 Neut % (Auto) 80.8 H Lymph % (Auto) 13.3 [place] % (Auto) 4.3 Eos % (Auto) 1.0 Baso % (Auto) 0.6 Neut # (Auto) 12.6 H Lymph # (Auto) 2.1 [place] # (Auto) 0.7 Eos # (Auto) 0.2 Baso # (Auto) 0.1 Total Counted 100 Neutrophils % (Manual) 80 H Lymphocytes % (Manual) 12 Monocytes % (Manual) 8 Platelet Estimate Normal RBC Morphology Normal Sodium 133 L Potassium 3.8 Chloride 96 L Carbon Dioxide 28 Anion Gap 12.8 BUN 6 L D Creatinine 0.50 L Estimated Creat Clear 89 Estimated GFR 125 Est GFR ( Amer) 151 Glucose 215 H POC Glucose 287 H Calcium 8.3 L Total Bilirubin 0.4 AST 35 ALT 15 Alkaline Phosphatase 75 Total Protein 6.4 Albumin 3.2 L Globulin 3.2 Albumi
--- NOTE | 2022-08-16 12:34 | CARE MANAGER ---
Attempted to contact patient x2 related to hospital discharge. Left VM message.
== END 2022-08-13 13:33 | disposition home or self-care (01) ==
LOC: ER 19:52 → 2ND 08-12 00:20
PROVIDERS: Emergency Medicine; Admitting Provider Emergency Medicine; Emergency Provider Emergency Medicine; PCP Family Medicine; Visit Provider Family Medicine
DX: N39.0 Urinary tract infection, site not specified (principal); I10 Essential (primary) hypertension; E78.5 Hyperlipidemia, unspecified; K57.32 Diverticulitis of large intestine without perforation or abscess without bleeding; E11.42 Type 2 diabetes mellitus with diabetic polyneuropathy; E66.9 Obesity, unspecified; I45.10 Unspecified right bundle-branch block; Z68.33 Body mass index [BMI] 33.0-33.9, adult; Z79.4 Long term (current) use of insulin; Z79.899 Other long term (current) drug therapy
CPT/HCPCS: 36415; 74176; 80048; 80053; 81001; 81025; 82962; 83605; 85007; 85025; 85651; 86140; 87040; 87086; 93005; 97162; 97166; 99285; C9803; G0378; J0696; J2405; U0003; U0005

== ENCOUNTER 2022-08-26 04:00 | Inpatient (IN) | payer SELFPAY ==
[2022-08-26] VITALS (14 sets, daily range): BP systolic 114–153; BP diastolic 55–77; PULSE 107–142; RESP 16–20; TEMP 36.6–37.2; O2SAT 91–96; BMI 44.8; BMI 38.4
--- NOTE | 2022-08-26 04:03 | ECG_ITS ---
APPROVED REPORT Exam: Resting ECG HR:140 bpm ECG Measurements Heart Rate 140 AXES [place] 134 P 33 QRSd 137 QRS -19 QT 375 T 9 QTc 456 Conclusion SINUS TACHYCARDIA RIGHT BUNDLE BRANCH BLOCK [120+ ms QRS DURATION, UPRIGHT V1, 40+ ms S IN I/aVL/V4/V5/V6] ABNORMAL ECG UNCONFIRMED REPORT Electronically signed by : Ag Blas MD 08/27/2022 21:25:50
--- NOTE | 2022-08-26 04:08 | CT_ITS ---
PROCEDURE INFORMATION: Exam: CT Abdomen And Pelvis With Contrast Exam date and time: 08/26/2022 4:48 AM Age: 62 years old Clinical indication: Vomiting; Abdominal pain; Acute; Additional info: Lower quad abd pain TECHNIQUE: Imaging protocol: Computed tomography of the abdomen and pelvis with contrast. Radiation optimization: All CT scans at this facility use at least one of these dose optimization techniques: automated exposure control; mA and/or kV adjustment per patient size (includes targeted exams where dose is matched to clinical indication); or iterative reconstruction. Contrast material: ISOVUE; Contrast volume: 75 ml; Contrast route: IV; COMPARISON: CT ABDOMEN PELVIS WO CON 08/11/2022 10:20 PM FINDINGS: Heart: Coronary atherosclerosis is present. Liver: The liver is low in density. Gallbladder and bile ducts: The patient is status post cholecystectomy. Pancreas: Normal. No ductal dilation. Spleen: Normal. No splenomegaly. Adrenal glands: Normal. No mass. Kidneys and ureters: Normal. No hydronephrosis. Stomach and bowel: Inflammatory change are seen in the left quadrant adjacent to the sigmoid colon which is concentrically thickened. Appendix: No evidence of appendicitis. Intraperitoneal space: Unremarkable. No free air. No significant fluid collection. Vasculature: The largest is seen in the aortocaval space at the level of the lower pole of the right kidney measuring 19 mm in diameter. Lymph nodes: Some prominent lymph nodes are seen in the luke hepatis and retroperitoneum. Bilateral pelvic lymphadenopathy is noted the largest lymph node on the right measures 25 mm in diameter. Urinary bladder: Unremarkable as visualized. Reproductive: The uterus is enlarged and heterogeneous. Bones/joints: Unremarkable. No acute fracture. Soft tissues: Unremarkable. IMPRESSION: 1. Persistent sigmoid diverticulitis, the degree of inflammation has progressed somewhat since the prior study although no abscess or obstruction is present. 2. Diffuse retroperitoneal and pelvic lymphadenopathy of uncertain etiology. Underlying lymphoproliferative disorder suspected. 3. Hepatic steatosis. 4. Coronary atherosclerosis. 5. Stable 4 mm right lower lobe pulmonary nodule. This is unchanged from the prior study of 2019. No further follow-up required.
--- NOTE | 2022-08-26 04:22 | PC.NURSE ---
All orders verbal orders per MD Alecia.
[2022-08-26 04:23] LABS: Basophils % 0.2 % (0.1-2.0); Eosinophils # 0.1 K/mm3 (0.0-0.4); Eosinophils % 0.6 % (0.1-12.0); Hematocrit 39.9 % (37.0-47.0); Hemoglobin 12.5 g/dL (12.2-16.2); Lymphocytes # 0.3 K/mm3 (0.7-4.5); Lymphocytes % 2.3 % (10-50); Mean Corpuscular HGB Conc 31.3 g/dL (31.8-35.4); Mean Corpuscular Hemoglobin 26.6 pg (27.0-31.2); Mean Corpuscular Volume 85.1 fl (81-99); Mean Platelet Volume 8.1 fl (7.4-10.4); Monocytes # 0.4 K/mm3 (0.1-1.0); Monocytes % 3.7 % (1.7-9.3); Neutrophils # 10.2 K/mm3 (1.8-7.8); Neutrophils % 93.3 % (37.0-80.0); Platelet Count 364 K/mm3 (142-424); Red Blood Count 4.68 M/mm3 (4.20-5.40); Red Cell Distribution Width 14.7 % (11.5-17.5); White Blood Count 10.9 K/mm3 (4.8-10.8)
[2022-08-26 04:25] LABS: MANUAL DIFFERENTIAL MANUAL DIFFERENTIAL (MANUAL DIFF)
[2022-08-26 04:27] LABS: Alanine Aminotransferase 20 U/L (12-78); Albumin Level 3.6 g/dl (3.5-5.0); Albumin/Globulin Ratio 1.1 (1.1-1.8); Alkaline Phosphatase 111 U/L (38-126); Amylase 39 U/L (30-110); Anion Gap 20.8 mEq/L (5-15); Aspartate Amino Transferase 44 U/L (14-36); Bilirubin,Total 1.2 mg/dl (0.2-1.3); Blood Urea Nitrogen 16 mg/dl (7-17); Calcium 8.7 mg/dl (8.4-10.2); Carbon Dioxide 24 mmol/L (22.0-30.0); Chloride 90 mmol/L (98-107); Creatinine Clearance Estimated 42 mL/min (50-200); Estimated Glomerular Filt Rate 50 ml/min (>60); GFR (African American) 61 ML/MIN (>60); Globulin 3.2 g/dL (1.3-3.2); Glucose 337 mg/dl (74-100); Potassium 3.8 mmoL/L (3.5-5.1); Sodium 131 mmol/L (136-145); Total Protein,Serum 6.8 g/dl (6.3-8.2)
[2022-08-26 04:28] LABS: Lipase 19 U/L (23-300)
[2022-08-26 04:33] LABS: C-Reactive Protein 59.6 mg/L (0-4)
[2022-08-26 04:48] LABS: Lymphocytes % 8 % (10-50); Neutrophils % 90 % (42-76); Platelet Estimate Normal; RBC Morphology Normal; Total Cells Counted 100
[2022-08-26 04:50] LABS: Erythrocyte Sedimentation Rate 54 mm/hr (0-30)
[2022-08-26 04:51] LABS: Microscopic, Urine URINE MICROSCOPIC (MICROSCOPIC)
[2022-08-26 04:54] LABS: Appearance,Urine CLOUDY (Clear); Bilirubin,Urine Negative (Negative); Blood, Urine 3+ (Negative); Color,Urine DK YELLOW (Yellow); Glucose,Urine (UA) TRACE (Negative); Ketones,Urine 1+ (Negative); Leukocyte Esterase,Urine 1+ (Negative); Nitrate,Urine Negative (Negative); Protein,Urine 1+ (Negative); Specific Gravity, Urine 1.025 (1.005-1.030); Urobilinogen,Urine 0.2 EU/dl (0.2)
[2022-08-26 04:55] LABS: RBC,Urine 50-100 #/hpf (0-3); Squamous Epithelial Cell,Urine 20-50 #/hpf (0-5)
--- NOTE | 2022-08-26 06:00 | PC.NURSE ---
Pt asked for water. Pt was advised we are unable to give her anything to drink until her scan results are back.
--- NOTE | 2022-08-26 06:43 | HMH.EDABDPAI ---
Discharge Plan Disposition Patient Disposition: Admitted As Inpatient Chief Complaint: Abdominal Pain Prescriptions Prescriptions: No Action gabapentin 600 mg tablet 600 mg PO QID PRN (Reason: Pain) 30 Days Qty: 120 1RF lisinopril 10 mg tablet 10 mg PO DAILY cyclobenzaprine 10 mg tablet 10 mg PO TID Qty: 90 0RF atorvastatin 10 mg tablet 10 mg PO DAILY metoprolol succinate [Toprol XL] 50 mg tablet extended release 24 hr 50 mg PO DAILY pantoprazole [Protonix] 40 mg tablet,delayed release (DR/EC) 40 mg PO DAILY montelukast [Singulair] 10 mg tablet 10 mg PO PM ergocalciferol (vitamin D2) 1,250 mcg (50,000 unit) capsule 50,000 unit PO WEEKLY insulin aspart U-100 [Novolog Flexpen U-100 Insulin] 100 unit/mL (3 mL) insulin pen 20 unit SQ TID Toujeo SoloStar U-300 Insulin 300 unit/mL (1.5 mL) insulin pen 35 unit SQ HS metoclopramide HCl [Reglan] 10 mg tablet 10 mg PO QACHS nitrofurantoin monohyd/m-cryst [Macrobid] 100 mg capsule 100 mg PO BID Rx Instructions: must administer with a meal/food Humalog KwikPen Insulin 200 unit/mL (3 mL) insulin pen 20 unit SQ TID albuterol sulfate 8.5 GM HFA aerosol inhaler 2 puffs IH Q6HP PRN (Reason: Shortness Of Breath) 30 Days Qty: 1 5RF Discharge ED Provider: Thee Alston Abdominal Pain HPI General Chief Complaint: Abdominal Pain Stated Complaint: weakness Time Seen by Provider: 08/26/22 04:05 Mode of Arrival: EMS Source of Information: Patient, EMS and Medical Record Limitations: No Limitations Description of Symptoms (Recalled from ER Triage Doc. by RN): Pt c/o bilat lower abdominal pain that started at 3am tonight w/ associated N/V. Pt denies diarrhea. Pt just finished course of antibiotics for UTI and was seen by PCP 08/23 for follow up and reported milder pain in same area. Pt reports no BM in 4 days. History of Present Illness HPI narrative: lower abd pain assoc with n/v- was on abx for diverticulitis and did well and was seen in office and had dub and had senior partner eval pending and then seen in office for possible gastroparesis but has increased in sx and presents to the ed - MD complaint: abdominal pain Onset (ago): day(s) Consistency: intermittent Location: diffuse Severity: moderate Associated symptoms: denies other symptoms Related Data Home Medications Medication Instructions Recorded Confirmed lisinopril 10 mg tablet 10 mg PO DAILY High blood pressure 06/21/22 08/26/22 atorvastatin 10 mg tablet 10 mg PO DAILY Cholesterol 08/11/22 08/26/22 ergocalciferol (vitamin D2) 1,250 50,000 unit PO WEEKLY Supplement 08/11/22 08/26/22 mcg (50,000 unit) capsule insulin aspart U-100 100 unit/mL 20 unit SQ TID Diabetes 08/11/22 08/26/22 (3 mL) subcutaneous pen (Novolog Flexpen U-100 Insulin aspart) insulin glargine U-300 conc 300 35 unit SQ HS Diabetes 08/11/22 08/26/22 unit/mL (1.5 mL) subcutaneous pen (Toujeo SoloStar U-300 Insulin) metoprolol succinate 50 mg 50 mg PO DAILY High blood pressure 08/11/22 08/26/22 tablet,extended release 24 hr (Toprol XL) montelukast 10 mg tablet 10 mg PO PM Allergy symptoms 08/11/22 08/26/22 (Singulair) pantoprazole 40 mg tablet,delayed 40 mg PO DAILY GERD 08/11/22 08/26/22 release (Protonix) insulin lispro 200 unit/mL (3 mL) 20 unit SQ TID Diabetes 08/26/22 08/26/22 subcutaneous pen (Humalog KwikPen U-200 Insulin) metoclopramide HCl 10 mg tablet 10 mg PO QACHS GERD 08/26/22 08/26/22 (Reglan) nitrofurantoin 100 mg PO BID UTI 08/26/22 08/26/22 monohydrate/macrocrystals 100 mg capsule (Macrobid) Previous Rx's Medication Instructions Recorded albuterol sulfate 90 mcg/actuation 2 puffs inhalation Q6HP PRN 09/21/21 aerosol inhaler Shortness Of Breath 30 days #1 ea gabapentin 600 mg tablet 600 mg PO QID PRN Pain 30 days 04/02/22 #120 tabs cyclobenzaprine 10 mg tablet 10 mg PO TID MUSCLE SPASM #90 tabs 08/20/22 All
--- NOTE | 2022-08-26 06:54 | PC.NURSE ---
Hospitalist notified of plans to admit pt
--- NOTE | 2022-08-26 07:00 | PC.NURSE ---
Pt advised that she felt like her brief was wet. Pt brief checked and was dry. Pt repositioned in bed for comfort. Pt provided with pillow and blanket, and ice chips per request. No other needs or complaints at this time.
[2022-08-26 07:02] LABS: Coronavirus 19, PCR Not Detected (NotDetected); Influenza A, PCR Not Detected (NotDetected); Influenza B, PCR Not Detected (NotDetected)
[2022-08-26 07:10] LABS: Lactic Acid 1.5 mmol/L (0.7-2.1)
--- NOTE | 2022-08-26 07:20 | PC.NURSE ---
hospitalist at the bs
--- NOTE | 2022-08-26 08:06 | PC.NURSE ---
called report to Amanda FARRIS
--- NOTE | 2022-08-26 09:07 | PC.NURSE ---
PT arrived to the floor at this time
[2022-08-26 12:24] LABS: POC Glucose,Bedside 373 (70-110)
--- NOTE | 2022-08-26 14:20 | EXP.HP ---
History of Present Illness *Admission Date: 08/26/22 *Reason for visit:: Abdominal pain *History of present illness: Patient is a 62-year-old woman with past medical history of hypertension, type 2 diabetes, dysfunctional uterine bleeding, and recent bouts of diverticulitis and urinary tract infections who comes to the ER for bilateral lower abdominal pain. Patient was admitted here from 08/12/2022 to 08/13/2022 for diverticulitis and urinary tract infection. Patient saw her PCP on 08/23/2022 for early satiety and was prescribed Reglan for possible gastroparesis. She continues to have decreased appetite and has developed lower abdominal pain. This morning she woke up with nausea and vomiting and decided to come to the ER. CT abdomen and pelvis showed progression of diverticulitis so hospital service was called for admission. Patient denies fever, chills, chest pain, shortness of breath. She does report severe fatigue. [facility] Medical History 1st degree AV block Allergies Asthma Chest pain Diabetes mellitus Diabetes mellitus, type 2 Dyspnea Gastroesophageal reflux disease History of second hand smoke exposure Hyperlipidemia Hypertension Left arm pain Neuropathy Pneumonia RBBB Type 2 diabetes mellitus with peripheral neuropathy Surgical History History of appendectomy History of cholecystectomy History of colonoscopy Family History (Updated 08/26/22 @ 09:53 by Savita Lei RN) Other Family history of acute congestive heart failure Family history of cancer Tachycardia Social History (Updated 08/26/22 @ 09:54 by Savita Lei RN) Smoking Status: Never smoker alcohol intake: never counseling provided: none substance use type: denies use current occupational status: disabled Travel in the last 8 weeks: Inside the [place] household members: spouse housing: house Review of Systems Constitutional Constitutional: Denies body ache(s), Denies chills, Reports fatigue, Denies fever(s), Reports poor appetite and Reports lethargy Eyes Eyes: Denies change in vision ENT Ears, Nose, Mouth, and Throat: Denies dizziness, Denies dysphagia and Denies mouth pain *Cardiovascular Cardiovascular: Denies chest pain, Denies dyspnea and Denies irregular heart rhythm *Respiratory Respiratory: Denies dyspnea *Gastrointestinal Gastrointestinal: Reports as per HPI, Reports abdominal pain, Reports constipation, Denies dysphagia, Denies hematemesis, Denies hematochezia and Reports vomiting *Musculoskeletal Musculoskeletal: Denies abnormal gait, Denies atrophy, Denies joint swelling, Denies limited range of motion and Denies muscle weakness *Neurologic Neurologic: Denies abnormal gait, Denies abnormal movements, Denies abnormal speech, Denies behavioral changes, Denies confusion, Denies dizziness and Denies localized weakness Psychiatric Psychiatric: Denies anxiety, Denies behavioral changes, Denies confusion and Denies depression Endocrine Endocrine: Reports fatigue Meds Home Medications and Allergies Home Medications Medication Instructions Recorded Confirmed Type albuterol sulfate 90 mcg/actuation 2 puffs inhalation Q6HP PRN 09/21/21 08/26/22 Rx aerosol inhaler Shortness Of Breath 30 days #1 ea gabapentin 600 mg tablet 600 mg PO QID PRN Pain 30 days 04/02/22 08/26/22 Rx #120 tabs lisinopril 10 mg tablet 10 mg PO DAILY High blood pressure 06/21/22 08/26/22 History atorvastatin 10 mg tablet 10 mg PO HS Cholesterol 08/11/22 08/26/22 History ergocalciferol (vitamin D2) 1,250 50,000 unit PO WEEKLY Supplement 08/11/22 08/26/22 History mcg (50,000 unit) capsule insulin glargine U-300 conc 300 24 unit SQ HS Diabetes 08/11/22 08/26/22 History unit/mL (1.5 mL) subcutaneous pen (Toujeo SoloStar U-300 Insulin) metoprolol succinate 50 mg 50 mg PO DAILY High blood pressure 08/11/22 08/26/22 History
--- NOTE | 2022-08-26 16:20 | PC.NURSE ---
PT IS RESTING IN BED WITH FAMILY AT BEDSIDE. ALERT AND ORIENTED X4. PT STATES SHE IS FEELING BETTER. PT IS DIURESING WELL. TURNED AND REPOSITIONED IN BED. EATING AND DRINKING WELL. VSS. LUNG SOUNDS DIMINISHED. ABDOMEN SOFT/NON TENDER WITH ACTIVE BOWEL SOUNDS. 3+ PITTING EDEMA NOTED TO BLE. DRESSINGS TO ULCERS ON COCCYX AND RIGHT HEEL WERE CHANGED THIS SHIFT. BATH AND LINEN CHANGE THIS SHIFT. WILL CONTINUE TO MONITOR.
[2022-08-26 16:24] LABS: POC Glucose,Bedside 185 (70-110)
--- NOTE | 2022-08-26 17:49 | PC.NURSE ---
pt was offered a bath and refused multiple times
[2022-08-26 20:37] LABS: POC Glucose,Bedside 164 (70-110)
[2022-08-27] VITALS: BP 122/62; PULSE 101; RESP 18; TEMP 36.8; O2SAT 94
[2022-08-27 04:00] VITALS: BP 144/64; PULSE 104; RESP 18; TEMP 37.3; O2SAT 94
--- NOTE | 2022-08-27 04:17 | PC.NURSE ---
pt has been awake t/o most of shift, has complained of back and leg pain and was treated per JAN, has remained on room air with O2 sats at 94%, has been tachy with HR 101-107, no complaints of SOA or CP, does complain of tenderness in abdomen, no vomiting this shift so far
[2022-08-27 05:00] VITALS: BMI 40.3
[2022-08-27 05:47] LABS: POC Glucose,Bedside 177 (70-110)
[2022-08-27 07:05] LABS: Basophils % 0.2 % (0.1-2.0); Eosinophils # 0.1 K/mm3 (0.0-0.4); Eosinophils % 0.8 % (0.1-12.0); Hematocrit 31.9 % (37.0-47.0); Hemoglobin 10.8 g/dL (12.2-16.2); Lymphocytes # 0.8 K/mm3 (0.7-4.5); Lymphocytes % 7.7 % (10-50); Mean Corpuscular HGB Conc 33.7 g/dL (31.8-35.4); Mean Corpuscular Hemoglobin 27.7 pg (27.0-31.2); Mean Corpuscular Volume 82.3 fl (81-99); Mean Platelet Volume 8.1 fl (7.4-10.4); Monocytes # 0.7 K/mm3 (0.1-1.0); Monocytes % 6.3 % (1.7-9.3); Neutrophils # 8.9 K/mm3 (1.8-7.8); Neutrophils % 84.9 % (37.0-80.0); Platelet Count 338 K/mm3 (142-424); Red Blood Count 3.88 M/mm3 (4.20-5.40); Red Cell Distribution Width 14.8 % (11.5-17.5); White Blood Count 10.5 K/mm3 (4.8-10.8)
[2022-08-27 07:07] LABS: Chloride 97 mmol/L (98-107)
[2022-08-27 07:08] LABS: Potassium 3.3 mmoL/L (3.5-5.1); Sodium 133 mmol/L (136-145)
[2022-08-27 07:10] LABS: Alanine Aminotransferase 11 U/L (12-78); Aspartate Amino Transferase 63 U/L (14-36); Blood Urea Nitrogen 12 mg/dl (7-17); Creatinine Clearance Estimated 44 mL/min (50-200); Estimated Glomerular Filt Rate 85 ml/min (>60); GFR (African American) 103 ML/MIN (>60)
[2022-08-27 07:11] LABS: Albumin Level 2.8 g/dl (3.5-5.0); Alkaline Phosphatase 74 U/L (38-126); Anion Gap 13.3 mEq/L (5-15); Bilirubin,Total 0.4 mg/dl (0.2-1.3); Calcium 7.6 mg/dl (8.4-10.2); Carbon Dioxide 26 mmol/L (22.0-30.0); Globulin 2.8 g/dL (1.3-3.2); Glucose 172 mg/dl (74-100); Magnesium 1.5 mg/dl (1.6-2.3); Total Protein,Serum 5.6 g/dl (6.3-8.2)
[2022-08-27 08:00] VITALS: BP 138/63; PULSE 111; RESP 20; TEMP 36.6; O2SAT 95
--- NOTE | 2022-08-27 08:27 | US_ITS ---
FINAL REPORT CLINICAL HISTORY: post-menopausal bleeding FINDINGS: Sonographic images of the pelvis were obtained. The uterus is enlarged and measures 14 by 10 x 9.7 cm. The endometrium measures 15 mm, which is thickened. There are multiple fibroids measuring up to 6.8 cm The right ovary is not visualized and left ovary measures 3.2 cm in length. Normal blood flow seen to the ovaries. Small follicles are present. There is a small amount of ascites. IMPRESSION: Enlarged uterus with multiple fibroids. Thickened endometrium. Small amount of ascites. Reviewed, Interpreted and Dictated by Lex Godinez III, MD Transcribed by Triny Olivarez Authenticated and [facility]
[2022-08-27 08:42] LABS: Thyroid Stimulating Hormone 1.81 uIU/mL (0.465-4.68)
[2022-08-27 11:07] VITALS: BMI 40.3
[2022-08-27 12:00] VITALS: BP 126/56; PULSE 101; RESP 21; TEMP 36.8; O2SAT 94
--- NOTE | 2022-08-27 12:32 | XR_ITS ---
FINAL REPORT CLINICAL HISTORY: fell complaints knee pain COMPARISON: July 2016 FINDINGS: 2 views of the right knee were obtained. There is no acute fracture or dislocation. There are mild degenerative changes. Vascular calcifications are noted. IMPRESSION: No acute bony abnormality. Reviewed, Interpreted and Dictated by Lex Godinez III, MD Transcribed by Manjinder Lopez Authenticated and [facility]
--- NOTE | 2022-08-27 13:57 | EXP.PN ---
Subjective *Date: 08/27/22 *Time: 14:14 Interval history: Patient still feels very fatigued and unwell. She has very low energy and a low appetite. Exam Data for Last 24 hours Vital signs and Labs for Last 24 Hours: Temp Pulse Resp BP Pulse Ox 97.8 F 111 H 20 138/63 95 08/27/22 08:00 08/27/22 08:00 08/27/22 08:00 08/27/22 08:00 08/27/22 08:00 Laboratory Results - last 24 hr 08/26/22 16:11: POC Glucose 185 H 08/26/22 20:20: POC Glucose 164 H 08/27/22 05:29: POC Glucose 177 H 08/27/22 05:52: WBC 10.5, RBC 3.88 L, Hgb 10.8 L, Hct 31.9 L, MCV 82.3, MCH 27.7, MCHC 33.7, RDW 14.8, Plt Count 338, MPV 8.1, Neut % (Auto) 84.9 H, Lymph % (Auto) 7.7 L, Bracken % (Auto) 6.3, Eos % (Auto) 0.8, Baso % (Auto) 0.2, Neut # (Auto) 8.9 H, Lymph # (Auto) 0.8, Bracken # (Auto) 0.7, Eos # (Auto) 0.1, Baso # (Auto) 0.0 08/27/22 05:52: Sodium 133 L, Potassium 3.3 L, Chloride 97 L, Carbon Dioxide 26, Anion Gap 13.3, BUN 12, Creatinine 0.70 D, Estimated Creat Clear 44, Estimated GFR 85, Est GFR ( Amer) 103 D, Glucose 172 H, Calcium 7.6 L, Magnesium 1.5 L, Total Bilirubin 0.4, AST 63 H D, ALT 11 L D, Alkaline Phosphatase 74, Total Protein 5.6 L, Albumin 2.8 L D, Globulin 2.8, Albumin/Globulin Ratio 1.0 L 08/27/22 05:52: TSH 1.81 I & O for Last 24 hours: Intake & Output 08/24/22 08/25/22 08/26/22 08/27/22 23:59 23:59 23:59 23:59 Intake Total 1597 / 1597 1659 / 1659 Output Total 300 / 300 0 / 0 Balance 1297 / 1297 1658 Weight 95.368 kg 99.39 kg Microbiology Reports for the Last 24 Hours: Microbiology 08/26/22 04:40 Urine,Clean Catch Urine Culture - Preliminary 08/26/22 06:55 Blood Blood Culture - Preliminary 08/26/22 06:55 Blood Blood Culture - Preliminary Constitutional Constitutional: no acute distress, morbidly obese, chronically ill appearing, disheveled and cooperative Comments: fatigued appearing *Routine HEENT Exam Head: Present normocephalic and atraumatic Eye: Present EOMI and PERRL ENT: Present mucous membranes moist and oropharynx clear; Absent dentition normal *Routine Neck Exam Neck: Present supple and full ROM *Routine Respiratory Exam Respiratory: Present crackles (bibasilar ); Absent accessory muscle use or respiratory distress *Routine Cardiovascular Exam Cardiovascular: Present Normal S1, Normal S2 and tachycardia; Absent murmur *Routine Abdominal Exam Abdominal: Present soft, normoactive bowel sounds and tenderness (mild to moderate, diffuse ); Absent distended, rebound or guarding *Routine Extremities Exam Extremities: Present full ROM, pulses intact and normal capillary refill; Absent edema or tenderness *Routine Neurological Exam Neurological: Present alert, oriented X3, CN II-XII intact, moving all extremities and normal speech; Absent sensory deficit, motor deficit or normal tone (low muscle tone ) Routine Psychiatric Exam Psychiatric: Present normal affect, normal thought process and cooperative; Absent good insight or good judgment Assessment and Plan *Assessment and plan (1) HTN (hypertension): Status: Chronic Qualifiers: Hypertension type: essential hypertension Qualified Code(s): I10 - Essential (primary) hypertension Category: Medical Code(s): I10 - Essential (primary) hypertension (2) HLD (hyperlipidemia): Status: Chronic Qualifiers: Hyperlipidemia type: mixed hyperlipidemia Qualified Code(s): E78.2 - Mixed hyperlipidemia Category: Medical Code(s): E78.5 - Hyperlipidemia, unspecified (3) Tachycardia: Status: Acute Category: Medical Code(s): R00.0 - Tachycardia, unspecified (4) Obesity (BMI 30-39.9): Status: Acute Category: Medical Code(s): E66.9 - Obesity, unspecified (5) Type 2 diabetes mellitus with peripheral neuropathy: Status: Chronic Category: Medical Code(s): E11.42 - Type 2 diabetes mellitus with diabetic polyneuropathy (
[2022-08-27 14:11] LABS: POC Glucose,Bedside 246 (70-110)
[2022-08-27 16:00] VITALS: BP 120/64; PULSE 112; RESP 20; TEMP 37.3; O2SAT 92
--- NOTE | 2022-08-27 16:42 | PC.NURSE ---
patient does state she has some tenderness with palpation to abdomen. no frequent complaints of pain, most pain is in back. hasn't been eating a whole lot. small amounts of nausea noted. patient was also noted to be sitting on bedside commode at aproximately 1130. it was noted patient had underwear pulled up, and had some urine at floor. attempted to clean some of the urine up and tried to assist patient with standing up and going back to bed. however, patient was unable to assist with the transfer stating she felt very weak. educated patient on need to remain seating and she voiced this back to staff. obtained help to transfer patient and noted patient to be laying in the floor. patient states i slid after thinking i could do it . assessed patient no injuries noted, minimal pain to r knee. attempted to assist patient out of floor with assistance and patient unable to assist in stand, or sitting up. lift was obtained and used to get patient back to bed. she tolerated this well. educated on importance of help with transfers. bed alarm in place, moved patient room closer to nursing station. notified md. xray ordered for r knee pain. no other issues.
[2022-08-27 17:03] LABS: POC Glucose,Bedside 217 (70-110)
[2022-08-27 19:49] LABS: POC Glucose,Bedside 154 (70-110)
[2022-08-27 20:00] VITALS: BP 141/79; PULSE 115; RESP 18; TEMP 37.5; O2SAT 95
[2022-08-28 03:10] VITALS: BP 134/68; PULSE 113; RESP 19; TEMP 38.5; O2SAT 93
--- NOTE | 2022-08-28 03:12 | PC.NURSE ---
RN aware of elevated temp.
[2022-08-28 04:10] VITALS: TEMP 38.1
[2022-08-28 05:00] VITALS: BMI 40.6
[2022-08-28 05:40] VITALS: TEMP 36.7
[2022-08-28 06:18] LABS: POC Glucose,Bedside 134 (70-110)
[2022-08-28 06:46] LABS: Basophils % 0.2 % (0.1-2.0); Eosinophils % 0.1 % (0.1-12.0); Hematocrit 31.7 % (37.0-47.0); Hemoglobin 10.4 g/dL (12.2-16.2); Lymphocytes # 1.3 K/mm3 (0.7-4.5); Lymphocytes % 6.9 % (10-50); Mean Corpuscular HGB Conc 32.9 g/dL (31.8-35.4); Mean Corpuscular Hemoglobin 27.1 pg (27.0-31.2); Mean Corpuscular Volume 82.5 fl (81-99); Mean Platelet Volume 7.9 fl (7.4-10.4); Monocytes # 0.9 K/mm3 (0.1-1.0); Monocytes % 4.9 % (1.7-9.3); Neutrophils # 16.6 K/mm3 (1.8-7.8); Neutrophils % 87.8 % (37.0-80.0); Platelet Count 335 K/mm3 (142-424); Red Blood Count 3.84 M/mm3 (4.20-5.40); Red Cell Distribution Width 14.7 % (11.5-17.5); White Blood Count 18.9 K/mm3 (4.8-10.8)
[2022-08-28 06:50] LABS: Chloride 96 mmol/L (98-107); MANUAL DIFFERENTIAL MANUAL DIFFERENTIAL (MANUAL DIFF); Potassium 3.1 mmoL/L (3.5-5.1); Sodium 130 mmol/L (136-145)
[2022-08-28 06:53] LABS: Alanine Aminotransferase 13 U/L (12-78); Albumin Level 2.7 g/dl (3.5-5.0); Alkaline Phosphatase 74 U/L (38-126); Anion Gap 13.1 mEq/L (5-15); Aspartate Amino Transferase 53 U/L (14-36); Bilirubin,Total 0.7 mg/dl (0.2-1.3); Blood Urea Nitrogen 11 mg/dl (7-17); Calcium 7.5 mg/dl (8.4-10.2); Carbon Dioxide 24 mmol/L (22.0-30.0); Creatinine Clearance Estimated 44 mL/min (50-200); Estimated Glomerular Filt Rate 63 ml/min (>60); GFR (African American) 77 ML/MIN (>60); Globulin 2.8 g/dL (1.3-3.2); Glucose 131 mg/dl (74-100); Total Protein,Serum 5.5 g/dl (6.3-8.2)
[2022-08-28 06:54] LABS: Magnesium 1.5 mg/dl (1.6-2.3)
[2022-08-28 07:37] LABS: Lymphocytes % 10 % (10-50); Monocytes % 5 % (2-9); Neutrophils % 85 % (42-76); Total Cells Counted 100
[2022-08-28 07:38] LABS: Platelet Estimate Normal; RBC Morphology Normal
[2022-08-28 08:00] VITALS: BP 138/69; PULSE 108; RESP 14; TEMP 37.4; O2SAT 97
--- NOTE | 2022-08-28 08:49 | EXP.PHA.CONS ---
Pharmacy Consult Date: 08/28/22 Time: 08:49 Referring provider: DR. LIMA Reason for Consult:: VANCOMYCIN DOSING Allergies Allergy/AdvReac Type Severity Reaction Status Date / Time amoxicillin Allergy Verified 08/23/22 15:32 Sulfa (Sulfonamide AdvReac Severe Anaphylaxis Verified 08/23/22 15:32 Antibiotics) aspirin [ASPIRIN] AdvReac Unknown Verified 08/23/22 15:32 Home Medications Medication Instructions Recorded Confirmed Type albuterol sulfate 90 mcg/actuation 2 puffs inhalation Q6HP PRN 09/21/21 08/26/22 Rx aerosol inhaler Shortness Of Breath 30 days #1 ea gabapentin 600 mg tablet 600 mg PO QID PRN Pain 30 days 04/02/22 08/26/22 Rx #120 tabs lisinopril 10 mg tablet 10 mg PO DAILY High blood pressure 06/21/22 08/26/22 History atorvastatin 10 mg tablet 10 mg PO HS Cholesterol 08/11/22 08/26/22 History ergocalciferol (vitamin D2) 1,250 50,000 unit PO WEEKLY Supplement 08/11/22 08/26/22 History mcg (50,000 unit) capsule insulin glargine U-300 conc 300 24 unit SQ HS Diabetes 08/11/22 08/26/22 History unit/mL (1.5 mL) subcutaneous pen (Toujeo SoloStar U-300 Insulin) metoprolol succinate 50 mg 50 mg PO DAILY High blood pressure 08/11/22 08/26/22 History tablet,extended release 24 hr (Toprol XL) montelukast 10 mg tablet 10 mg PO PM Allergy symptoms 08/11/22 08/26/22 History (Singulair) pantoprazole 40 mg tablet,delayed 40 mg PO HS acid reflux 08/11/22 08/26/22 History release (Protonix) cyclobenzaprine 10 mg tablet 10 mg PO TID MUSCLE SPASM #90 tabs 08/20/22 08/26/22 Rx insulin lispro 200 unit/mL (3 mL) 20 unit SQ TIDWMEAL Diabetes 08/26/22 08/26/22 History subcutaneous pen (Humalog KwikPen U-200 Insulin) metoclopramide HCl 10 mg tablet 10 mg PO ACHS acid reflux 08/26/22 08/26/22 History (Reglan) New Prescriptions to Start Prescriptions: Height: 1.57 m Weight: 100.017 kg Laboratory Results:: Laboratory Results - last 24 hr 08/27/22 11:48: POC Glucose 246 H 08/27/22 16:49: POC Glucose 217 H 08/27/22 19:41: POC Glucose 154 H 08/28/22 06:05: POC Glucose 134 H 08/28/22 06:23: WBC 18.9 H D, RBC 3.84 L, Hgb 10.4 L, Hct 31.7 L, MCV 82.5, MCH 27.1, MCHC 32.9, RDW 14.7, Plt Count 335, MPV 7.9, Neut % (Auto) 87.8 H, Lymph % (Auto) 6.9 L, Rich % (Auto) 4.9, Eos % (Auto) 0.1, Baso % (Auto) 0.2, Neut # (Auto) 16.6 H, Lymph # (Auto) 1.3, Rich # (Auto) 0.9, Eos # (Auto) 0.0, Baso # (Auto) 0.0, Total Counted 100, Neutrophils % (Manual) 85 H, Lymphocytes % (Manual) 10, Monocytes % (Manual) 5, Platelet Estimate Normal, RBC Morphology Normal 08/28/22 06:23: Sodium 130 L, Potassium 3.1 L, Chloride 96 L, Carbon Dioxide 24, Anion Gap 13.1, BUN 11, Creatinine 0.90 D, Estimated Creat Clear 44, Estimated GFR 63, Est GFR ( Amer) 77 D, Glucose 131 H, Calcium 7.5 L, Magnesium 1.5 L, Total Bilirubin 0.7, AST 53 H, ALT 13, Alkaline Phosphatase 74, Total Protein 5.5 L, Albumin 2.7 L, Globulin 2.8, Albumin/Globulin Ratio 1.0 L Medical History: Medical History (Updated 08/27/22 @ 14:21 by Hira Shoemaker MD) 1st degree AV block Allergies Asthma Chest pain Diabetes mellitus Diabetes mellitus, type 2 Dyspnea Gastroesophageal reflux disease History of second hand smoke exposure Hyperlipidemia Hypertension Left arm pain Neuropathy Pneumonia RBBB Type 2 diabetes mellitus with peripheral neuropathy Assessment and Plan Assessment and plan all Dx Assessment and Plan for all problems:: Pharmacokinetic dosing service Age: 62 yo Serum creatinine: 0.9 mg/dL Height: 61.8 Inches Weight (kg): 100 Assessment: IBW (kg): 49.64 Dosing wt(kg): 100 Estimated Creatinine clearance (ml/min): 50.8 CRCL method: Cockcroft and Gault using ibw(default). Drug selected: Vancomycin Loading dose (mg): 0 Vd (liters): 80.0 (factor used: 0.8 L/kg) Fredy (hr-1): 0.047 Half life (hrs): 14.75 Recommended dose: 1500 mg Interval: 18 hrs I
--- NOTE | 2022-08-28 10:04 | HMH.PTEV ---
Physical Therapy Evaluation Rehab PT IP Evaluation Start: 08/28/22 08:01 Freq: ONCE Status: Active Protocol: Document 08/28/22 09:55 MARILYN (Rec: 08/28/22 10:03 MARLIYN [id number]) Subjective/History History History This is the initial IP PT evaluation for Chacha Merrill. Pt is a 62 y/o female admitted to [facility] thru ED for N& V. Pt was recently admitted to [facility] for UTI and diverticulitis. Subjective Subjective Pt reports she lives at home w / and son. Pt reports she used RW for ADL's but is mod I for ADL's. Rehab PT IP Eval Objective Appearance Patient Behavior Appropriate,Cooperative Patient Orientation Place,Name,Age,Year Difficulty following instructions none Speech Pattern Appropriate Ambulation Patient Able to Ambulate Yes Ambulation Observation IP General Gait Pattern Observation Wide Based Gait,Shuffling Step Ambulation Distance (feet) 4 Ambulation Assistive Device Rolling Walker Ambulation Ability Contact Guard/Hand Hold Balance Ability to Arise Able, uses arms to help Sitting Balance Steady, safe Standing Balance Steady, wide stance Dynamic Sitting Balance Ability Good Dynamic Standing Balance Ability Fair Rehab PT IP prob,goals,plan Problems Date of Evaluation: 08/28/22 PT IP Problems Bed Mobility,Transfers,Gait, Self care Rehab Potential Rehab Potential Fair Equipment Needs Assistive Devices Rolling / Wheeled Walker Plan PT Intervention Plan Transfers,Gait,Balance,Self care,Safety,Therapeutic Exercise PT Plan Frequency BID Duration LOS Discharge Goals Bed Transfer Ability Supervision/Stand by Sit to Stand Chair Transfer Ability Contact Guard/Hand Hold Ambulation Assistive Device Rolling Walker Ambulation Distance (feet) 25 Discharge Plan PT Discharge Plan Pt will benefit from skilled therapy while in [facility]. Once pt dc's to home she will continue to benefit from skilled therapy from HHPT. Without skilled therapy pt is at risk for continued deconditioning, falls, fractures, wounds and
--- NOTE | 2022-08-28 10:39 | HMH.OTEV ---
OT Inpatient Evaluation Rehab OT IP Evaluation Start: 08/28/22 08:01 Freq: ONCE Status: Complete Protocol: Document 08/28/22 10:34 [email or web address] (Rec: 08/28/22 10:38 [facility] [id number]) Rehab OT IP Assessment Subjective History Pt oriented x 3 on arrival. Pt agreeable to engage in therapy evaluation. Pt was admitted via ED 08/26/22 due to abdominal pain. Pt reports prior to being in the hospital she was living at home with her and son. She claims she was independent with all ADLs and IADLs. She did explain her does most of the cooking. She has 3 stairs to enter the home. She uses a walker during ambulation. Pt has a past medical history of: 1st degree AV block Allergies Asthma Chest pain Diabetes mellitus Diabetes mellitus, type 2 Dyspnea Gastroesophageal reflux disease History of second hand smoke exposure Hyperlipidemia Hypertension Left arm pain Neuropathy Pneumonia RBBB Type 2 diabetes mellitus with peripheral neuropathy Subjective I can still do what I need to do. Objective Patient Orientation Person,Place,Birthday Upper Extremity Gross ROM WFL Bed Mobility bed mobility-scooting,bed mobility - supine/sit,bed mobility - rolling Assist Level Contact Guard/Hand Hold Transfer Training Sit/Stand Transfer Assist Level Contact Guard/Hand Hold Chair Transfer Ability Contact Guard/Hand Hold Chair Transfer Technique Sit to/from Ambulatory Chair Transfer Assistive Devices Rolling Walker Rehab OT IP prob,goals,plan Problems Date of Evaluation: 08/28/22 OT IP Problems
[2022-08-28 11:23] LABS: POC Glucose,Bedside 149 (70-110)
--- NOTE | 2022-08-28 15:53 | EXP.ACUTE.PN ---
Subjective *Date: 08/28/22 *Time: 16:35 Interval history: Still complaining of some abdominal pain today. Denies any nausea. Denies shortness of breath or chest pain. Tolerating liquid diet. Having bowel movements. States she had a temperature overnight febrile to 101. Reviewed blood cultures, discussed with patient and her at bedside, 2 positive blood cultures for MSSA. 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 Overall feels better today per her report. Able to work with physical therapy today. Using walker to ambulate with PT today. Medical Exam Vital signs and Labs for Last 24 Hours: Temp Pulse Resp BP Pulse Ox 99.4 F 108 H 14 138/69 97 08/28/22 08:00 08/28/22 08:00 08/28/22 08:00 08/28/22 08:00 08/28/22 08:00 Laboratory Results - last 24 hr 08/27/22 16:49: POC Glucose 217 H 08/27/22 19:41: POC Glucose 154 H 08/28/22 06:05: POC Glucose 134 H 08/28/22 06:23: WBC 18.9 H D, RBC 3.84 L, Hgb 10.4 L, Hct 31.7 L, MCV 82.5, MCH 27.1, MCHC 32.9, RDW 14.7, Plt Count 335, MPV 7.9, Neut % (Auto) 87.8 H, Lymph % (Auto) 6.9 L, [place] % (Auto) 4.9, Eos % (Auto) 0.1, Baso % (Auto) 0.2, Neut # (Auto) 16.6 H, Lymph # (Auto) 1.3, [place] # (Auto) 0.9, Eos # (Auto) 0.0, Baso # (Auto) 0.0, Total Counted 100, Neutrophils % (Manual) 85 H, Lymphocytes % (Manual) 10, Monocytes % (Manual) 5, Platelet Estimate Normal, RBC Morphology Normal 08/28/22 06:23: Sodium 130 L, Potassium 3.1 L, Chloride 96 L, Carbon Dioxide 24, Anion Gap 13.1, BUN 11, Creatinine 0.90 D, Estimated Creat Clear 44, Estimated GFR 63, Est GFR ( Amer) 77 D, Glucose 131 H, Calcium 7.5 L, Magnesium 1.5 L, Total Bilirubin 0.7, AST 53 H, ALT 13, Alkaline Phosphatase 74, Total Protein 5.5 L, Albumin 2.7 L, Globulin 2.8, Albumin/Globulin Ratio 1.0 L 08/28/22 11:13: POC Glucose 149 H I & O for Labs for Last 24 Hours: Intake & Output 08/25/22 08/26/22 08/27/22 08/28/22 23:59 23:59 23:59 23:59 Intake Total 1597 / 1597 2139 / 2139 1320 / 1320 Output Total 300 / 300 750 / 750 0 / 0 Balance 1297 / 1297 1389 / 1389 1320 / 1320 Weight 95.368 kg 99.39 kg 100.017 kg Microbiology Reports for the Last 24 Hours: Microbiology 08/26/22 06:55 Blood Blood Culture - Preliminary Gram Positive Cocci 08/26/22 06:55 Blood Blood Culture - Preliminary Gram Positive Cocci 08/26/22 04:40 Urine,Clean Catch Urine Culture - Final Multiple organisms, suggests contamination. Head: Present atraumatic and normocephalic ENT: Present mucous membranes moist Comment:: very poor dentition, numerous teeth broken at gum line Neck: Present normal inspection Respiratory: Present CTA bilaterally; Absent accessory muscle use, wheezes or crackles Cardiac: Present Reg Rate and Rhythm GI: Present soft, tenderness (non focal, diffuse) and normal bowel sounds; Absent distention or rebound Rectal (female): Present deferred (female): Present deferred Extremities: Present normal inspection Skin: Present intact; Absent cyanosis or erythema Neuro: Present alert, awake and oriented x 3 Assessment and Plan *Assessment and plan (1) Staphylococcus aureus bacteremia: Status: Acute Category: Medical Code(s): R78.81 - Bacteremia; B95.61 - Methicillin susceptible Staphylococcus aureus infection as the cause of diseases classified elsewhere (2) Sigmoid diverticulitis: Status: Acute Category: Medical Code(s): K57.32 - Diverticulitis of large intestine without perforation or abscess without bleeding (3) HTN (hypertension): Status: Chronic Qualifiers: Hypertension type: essential hypertension Qualified Code(s): I10 - Essential (primary) hypertension Category: Medical Code(s): I10 - Essential (primary) hypertension (4) HLD (hyperlipidemia): Status: Chronic Qualifiers: Hyperlipidemia type: mixed h
[2022-08-28 16:00] VITALS: BP 105/56; PULSE 109; RESP 16; TEMP 37.9; O2SAT 95
[2022-08-28 16:58] LABS: POC Glucose,Bedside 179 (70-110)
--- NOTE | 2022-08-28 18:11 | PC.NURSE ---
Pt is alert and oriented x4. She's been up to the chair for several hours and tolerated well. She refused her dinner this afternoon stating she didn't feel good. Mild temp noted at that time. Tylenol administered, pt resting with her eyes closed on reassessment. Glucose was 149 and 179 at checks, ssi administered per jan. Family is at bedside. Bed is locked and in the lowest position, call light is within reach, bed alarm activated.
[2022-08-28 20:00] VITALS: BP 92/56; PULSE 102; RESP 14; TEMP 36.6; O2SAT 96
[2022-08-28 21:56] LABS: POC Glucose,Bedside 148 (70-110)
[2022-08-29 04:00] VITALS: BP 110/50; PULSE 102; RESP 16; TEMP 36.6; O2SAT 96
[2022-08-29 05:00] VITALS: BMI 40.6
[2022-08-29 05:59] LABS: Basophils # 0.1 K/mm3 (0-0.2); Basophils % 0.3 % (0.1-2.0); Eosinophils # 0.1 K/mm3 (0.0-0.4); Eosinophils % 0.7 % (0.1-12.0); Hematocrit 30.5 % (37.0-47.0); Lymphocytes # 1.3 K/mm3 (0.7-4.5); Lymphocytes % 6.7 % (10-50); Mean Corpuscular HGB Conc 32.7 g/dL (31.8-35.4); Mean Corpuscular Volume 82.6 fl (81-99); Mean Platelet Volume 8.1 fl (7.4-10.4); Monocytes # 0.7 K/mm3 (0.1-1.0); Monocytes % 3.7 % (1.7-9.3); Neutrophils # 17.1 K/mm3 (1.8-7.8); Neutrophils % 88.7 % (37.0-80.0); Platelet Count 350 K/mm3 (142-424); Red Blood Count 3.69 M/mm3 (4.20-5.40); Red Cell Distribution Width 14.9 % (11.5-17.5); White Blood Count 19.3 K/mm3 (4.8-10.8)
[2022-08-29 06:04] LABS: Chloride 97 mmol/L (98-107); Potassium 3.2 mmoL/L (3.5-5.1); Sodium 131 mmol/L (136-145)
[2022-08-29 06:05] LABS: MANUAL DIFFERENTIAL MANUAL DIFFERENTIAL (MANUAL DIFF)
[2022-08-29 06:06] LABS: Alanine Aminotransferase 14 U/L (12-78); Aspartate Amino Transferase 52 U/L (14-36); Blood Urea Nitrogen 15 mg/dl (7-17); Creatinine Clearance Estimated 44 mL/min (50-200); Estimated Glomerular Filt Rate 63 ml/min (>60); GFR (African American) 77 ML/MIN (>60)
[2022-08-29 06:07] LABS: Albumin Level 2.5 g/dl (3.5-5.0); Albumin/Globulin Ratio 0.9 (1.1-1.8); Alkaline Phosphatase 77 U/L (38-126); Anion Gap 14.2 mEq/L (5-15); Bilirubin,Total 0.4 mg/dl (0.2-1.3); Calcium 7.2 mg/dl (8.4-10.2); Carbon Dioxide 23 mmol/L (22.0-30.0); Globulin 2.8 g/dL (1.3-3.2); Glucose 120 mg/dl (74-100); Total Protein,Serum 5.3 g/dl (6.3-8.2)
[2022-08-29 06:13] LABS: POC Glucose,Bedside 117 (70-110)
--- NOTE | 2022-08-29 06:16 | PC.NURSE ---
Pt aox4. Pt c/o hip pain x1. PRN meds administered per JAN. Pt remained afebrile t/o shift. Call light within reach.
[2022-08-29 08:00] VITALS: BP 105/50; PULSE 103; RESP 16; TEMP 36.7; O2SAT 96
[2022-08-29 08:19] LABS: Lymphocytes % 10 % (10-50); Monocytes % 3 % (2-9); Neutrophils % 87 % (42-76); Total Cells Counted 100
[2022-08-29 08:20] LABS: Platelet Estimate Normal; RBC Morphology Normal
--- NOTE | 2022-08-29 08:34 | EXP.PHA.PN ---
Subjective *Date: 08/29/22 *Time: 08:34 Medical Exam Vital signs and Labs for Last 24 Hours: Temp Pulse Resp BP Pulse Ox 98 F 102 H 16 110/50 L 96 08/29/22 04:00 08/29/22 04:00 08/29/22 04:00 08/29/22 04:00 08/29/22 04:00 Laboratory Results - last 24 hr 08/28/22 11:13: POC Glucose 149 H 08/28/22 16:50: POC Glucose 179 H 08/28/22 21:41: POC Glucose 148 H 08/29/22 05:45: WBC 19.3 H, RBC 3.69 L, Hgb 10.0 L, Hct 30.5 L, MCV 82.6, MCH 27.0, MCHC 32.7, RDW 14.9, Plt Count 350, MPV 8.1, Neut % (Auto) 88.7 H, Lymph % (Auto) 6.7 L, [place] % (Auto) 3.7, Eos % (Auto) 0.7, Baso % (Auto) 0.3, Neut # (Auto) 17.1 H, Lymph # (Auto) 1.3, [place] # (Auto) 0.7, Eos # (Auto) 0.1, Baso # (Auto) 0.1, Total Counted 100, Neutrophils % (Manual) 87 H, Lymphocytes % (Manual) 10, Monocytes % (Manual) 3, Platelet Estimate Normal, RBC Morphology Normal 08/29/22 05:45: Sodium 131 L, Potassium 3.2 L, Chloride 97 L, Carbon Dioxide 23, Anion Gap 14.2, BUN 15 D, Creatinine 0.90, Estimated Creat Clear 44, Estimated GFR 63, Est GFR ( Amer) 77, Glucose 120 H, Calcium 7.2 L, Total Bilirubin 0.4, AST 52 H, ALT 14, Alkaline Phosphatase 77, Total Protein 5.3 L, Albumin 2.5 L, Globulin 2.8, Albumin/Globulin Ratio 0.9 L 08/29/22 05:55: POC Glucose 117 H I & O for Labs for Last 24 Hours: Intake & Output 08/26/22 08/27/22 08/28/22 08/29/22 23:59 23:59 23:59 23:59 Intake Total 1597 / 1597 2139 / 2139 2436 / 243 Output Total 300 / 300 750 / 750 0 / 0 0 / 0 Balance 1297 / 1297 1389 / 1389 243 / 2435 0 / 0 Weight 95.368 kg 99.39 kg 100.017 kg 100.017 kg Microbiology Reports for the Last 24 Hours: Microbiology 08/26/22 06:55 Blood Blood Culture - Preliminary Gram Positive Cocci 08/26/22 06:55 Blood Blood Culture - Preliminary Gram Positive Cocci 08/26/22 04:40 Urine,Clean Catch Urine Culture - Final Multiple organisms, suggests contamination. The patient's infection will respond to the chosen ABx?: Yes Is the patient receiving the right drug, dose, and route?: Yes Could a more targeted ABx be ordered?: No How long ABx needed (days)?: 10 (UP TO 14 DAYS IF SYMPTOMS PERSIST)
--- NOTE | 2022-08-29 12:49 | DIET.NUTRFU ---
RD visited today to review diet recommendations for DM, handouts were provided trhe other day. Patient did not seem very receptive to handouts when provided, but today she was able to recall her meal intake and count carbs with RD. Encouraged her to count them when she orders and then review portion size when receive. Meal intake good. No further dietary concerns.
[2022-08-29 15:01] LABS: POC Glucose,Bedside 175 (70-110)
[2022-08-29 16:00] VITALS: BP 114/54; PULSE 101; RESP 16; TEMP 36.9; O2SAT 95
[2022-08-29 16:27] LABS: POC Glucose,Bedside 197 (70-110)
[2022-08-29 18:38] VITALS: BP 113/54; PULSE 108; RESP 20; TEMP 37.3; O2SAT 95
--- NOTE | 2022-08-29 18:41 | ECG_ITS ---
APPROVED REPORT Exam: Resting ECG HR:106 bpm ECG Measurements Heart Rate 106 AXES [place] 184 P 36 QRSd 146 QRS -20 QT 363 T -6 QTc 425 Conclusion SINUS TACHYCARDIA RIGHT BUNDLE BRANCH BLOCK [120+ ms QRS DURATION, UPRIGHT V1, 40+ ms S IN I/aVL/V4/V5/V6] ABNORMAL ECG UNCONFIRMED REPORT Electronically signed by : Ag Blas MD 08/29/2022 21:54:24
--- NOTE | 2022-08-29 18:41 | EXP.ACUTE.PN ---
Subjective *Date: 08/29/22 *Time: 09:00 Interval history: Patient denies any kevin fever overnight. Did have some elevated temperature. No nausea or vomiting. Still complaining of some abdominal pain. Stable on room air. Having bowel movements. No blood in stool. Getting up to bedside chair. Able to ambulate using walker to the bathroom Medical Exam Vital signs and Labs for Last 24 Hours: Vital Signs Temp Pulse Resp BP Pulse Ox 08/29/22 18:38 99.1 F 108 H 20 113/54 L 95 08/29/22 16:00 98.4 F 101 H 16 114/54 L 95 08/29/22 08:00 98.0 F 103 H 16 105/50 L 96 08/29/22 04:00 98 F 102 H 16 110/50 L 96 08/28/22 20:00 97.9 F 102 H 14 92/56 L 96 Intake and Output 08/29/22 08/29/22 08/29/22 07:59 15:59 23:59 Intake Total 360 / 840 480 / 840 Output Total 0 / 0 0 / 0 0 / 0 Balance 0 / 840 360 / 840 480 / 840 Intake: Intake, Oral Amount 360 / 840 480 / 840 Output: Output, Urine Amount 0 / 0 0 / 0 0 / 0 Other: Number of Unmeasured Voids 0 1 1 Weight 100.017 kg Patient Weight 08/29/22 23:59 Weight 100.017 kg Laboratory Results - last 24 hr 08/28/22 21:41: POC Glucose 148 H 08/29/22 05:45: WBC 19.3 H, RBC 3.69 L, Hgb 10.0 L, Hct 30.5 L, MCV 82.6, MCH 27.0, MCHC 32.7, RDW 14.9, Plt Count 350, MPV 8.1, Neut % (Auto) 88.7 H, Lymph % (Auto) 6.7 L, [place] % (Auto) 3.7, Eos % (Auto) 0.7, Baso % (Auto) 0.3, Neut # (Auto) 17.1 H, Lymph # (Auto) 1.3, [place] # (Auto) 0.7, Eos # (Auto) 0.1, Baso # (Auto) 0.1, Total Counted 100, Neutrophils % (Manual) 87 H, Lymphocytes % (Manual) 10, Monocytes % (Manual) 3, Platelet Estimate Normal, RBC Morphology Normal 08/29/22 05:45: Sodium 131 L, Potassium 3.2 L, Chloride 97 L, Carbon Dioxide 23, Anion Gap 14.2, BUN 15 D, Creatinine 0.90, Estimated Creat Clear 44, Estimated GFR 63, Est GFR ( Amer) 77, Glucose 120 H, Calcium 7.2 L, Total Bilirubin 0.4, AST 52 H, ALT 14, Alkaline Phosphatase 77, Total Protein 5.3 L, Albumin 2.5 L, Globulin 2.8, Albumin/Globulin Ratio 0.9 L 08/29/22 05:55: POC Glucose 117 H 08/29/22 12:31: POC Glucose 175 H 08/29/22 16:20: POC Glucose 197 H I & O for Labs for Last 24 Hours: Intake & Output 08/26/22 08/27/22 08/28/22 08/29/22 23:59 23:59 23:59 23:59 Intake Total 1597 / 1597 2139 / 2139 2436 / 2436 840 / 840 Output Total 300 / 300 750 / 750 0 / 0 0 / 0 Balance 1297 / 1297 1389 / 1389 2436 / 2436 840 / 840 Weight 95.368 kg 99.39 kg 100.017 kg 100.017 kg Microbiology Reports for the Last 24 Hours: Microbiology 08/26/22 06:55 Blood Blood Culture - Preliminary Staphylococcus epidermidis 08/26/22 06:55 Blood Blood Culture - Preliminary Staphylococcus hominis Head: Present atraumatic and normocephalic ENT: Present mucous membranes moist Comment:: very poor dentition, numerous teeth broken at gum line Neck: Present normal inspection Respiratory: Present CTA bilaterally; Absent accessory muscle use, wheezes or crackles Cardiac: Present Reg Rate and Rhythm GI: Present soft, tenderness (non focal, diffuse) and normal bowel sounds; Absent distention or rebound Rectal (female): Present deferred (female): Present deferred Extremities: Present normal inspection Skin: Present intact; Absent cyanosis or erythema Neuro: Present alert, awake and oriented x 3 Assessment and Plan *Assessment and plan (1) Sigmoid diverticulitis: Status: Acute Category: Medical Code(s): K57.32 - Diverticulitis of large intestine without perforation or abscess without bleeding (2) Bacteremia due to Staphylococcus: Status: Acute Category: Medical Code(s): R78.81 - Bacteremia; B95.8 - Unspecified staphylococcus as the cause of diseases classified elsewhere (3) HTN (hypertension): Status: Chronic Qualifiers: Hypertension type: essential hypertension Qualified Code(s): I10 - Essential (primary) hypertension
--- NOTE | 2022-08-29 18:54 | PC.NURSE ---
Spoke to Dr. Goel about patient experiencing chest pain after second bag of potassium hung. VS stable and ekg unchanged from previous. No new orders.
--- NOTE | 2022-08-29 19:09 | PC.NURSE ---
VS stable, iv antibiotics given as well as magnesium. Potassium runs initiated. PAtient able to tolerate diet with no complaints. Abdomen soft but loop tender but no distention noted.
[2022-08-29 20:00] VITALS: BP 111/61; PULSE 108; RESP 17; TEMP 36.6; O2SAT 94
[2022-08-29 22:11] LABS: POC Glucose,Bedside 162 (70-110)
[2022-08-30 04:00] VITALS: BP 112/62; PULSE 98; RESP 16; TEMP 36.7; O2SAT 94
[2022-08-30 05:00] VITALS: BMI 40.6
--- NOTE | 2022-08-30 06:05 | PC.NURSE ---
pt alert and oriented x4, no acute distress, skin pwd, VSS with tachycardia noted, hr 98-108, regular, mild generalized edema 1+, fsbs below 150, pt complains of abd large and distended with tenderness and pain noted, + occasional nausea, hypoactive bs, pt states last bm was yesterday, no bm this shift, iv restart x2 this shift due to pt hitting accidentally and pulling out, no other issues or concerns noted at this time. bed alarm in place, pt up with assist x1
[2022-08-30 06:59] LABS: POC Glucose,Bedside 135 (70-110)
[2022-08-30 07:02] LABS: Basophils % 0.2 % (0.1-2.0); Eosinophils # 0.1 K/mm3 (0.0-0.4); Eosinophils % 0.6 % (0.1-12.0); Hematocrit 31.2 % (37.0-47.0); Hemoglobin 10.4 g/dL (12.2-16.2); Lymphocytes # 1.4 K/mm3 (0.7-4.5); Lymphocytes % 6.6 % (10-50); Mean Corpuscular HGB Conc 33.2 g/dL (31.8-35.4); Mean Corpuscular Hemoglobin 27.4 pg (27.0-31.2); Mean Corpuscular Volume 82.5 fl (81-99); Mean Platelet Volume 8.8 fl (7.4-10.4); Monocytes # 0.8 K/mm3 (0.1-1.0); Neutrophils # 18.5 K/mm3 (1.8-7.8); Neutrophils % 88.6 % (37.0-80.0); Platelet Count 367 K/mm3 (142-424); Red Blood Count 3.78 M/mm3 (4.20-5.40); White Blood Count 20.9 K/mm3 (4.8-10.8)
[2022-08-30 07:11] LABS: MANUAL DIFFERENTIAL MANUAL DIFFERENTIAL (MANUAL DIFF)
[2022-08-30 07:13] LABS: Chloride 97 mmol/L (98-107); Potassium 3.5 mmoL/L (3.5-5.1); Sodium 132 mmol/L (136-145)
[2022-08-30 07:16] LABS: Anion Gap 16.5 mEq/L (5-15); Blood Urea Nitrogen 15 mg/dl (7-17); Carbon Dioxide 22 mmol/L (22.0-30.0); Creatinine Clearance Estimated 44 mL/min (50-200); Estimated Glomerular Filt Rate 73 ml/min (>60); GFR (African American) 88 ML/MIN (>60)
[2022-08-30 07:17] LABS: Calcium 7.5 mg/dl (8.4-10.2); Glucose 122 mg/dl (74-100)
[2022-08-30 07:52] LABS: Lymphocytes % 4 % (10-50); Monocytes % 5 % (2-9); Neutrophils % 91 % (42-76); Total Cells Counted 100
[2022-08-30 07:54] LABS: Platelet Estimate Normal; RBC Morphology Normal
[2022-08-30 08:00] VITALS: BP 116/56; PULSE 101; RESP 16; TEMP 36.8; O2SAT 95
[2022-08-30 11:04] LABS: POC Glucose,Bedside 121 (70-110)
--- NOTE | 2022-08-30 11:15 | CT_ITS ---
FINAL REPORT CLINICAL HISTORY: worsening Abd pain, leukocytosis, Abscess? COMPARISON: 08/26/2022 FINDINGS: CT OF THE ABDOMEN AND PELVIS WITH ORAL CONTRAST Axial CT images of the abdomen and pelvis were obtained after the administration of oral contrast. Coronal reformatted images were also obtained and reviewed.This study was performed with techniques to keep radiation doses as low as reasonably achievable (ALARA). Individualized dose reduction techniques using automated exposure control or adjustment of mA and/or kV according to the patient's size were employed. Abdomen: There is mild bibasilar atelectasis. Small bilateral pleural effusions are noted. The heart is normal in size. There is mild fatty infiltration of the liver. The patient is status post cholecystectomy. There is worsening anasarca. The spleen is unremarkable. No adrenal mass is present. The pancreas has an unremarkable appearance. The kidneys demonstrate no stone or mass. There is bilateral hydronephrosis and hydroureter. The aorta is normal in caliber. There is widespread retroperitoneal adenopathy most worrisome for neoplastic involvement. This appears stable since the recent CT. A medial right external iliac node measures 29 mm and is stable. There is a stable 36 mm medial left external iliac node. Pelvis: The uterus is significantly enlarged and heterogeneous worrisome for neoplastic involvement. There are multiple sigmoid diverticula. Findings are consistent with proximal sigmoid diverticulitis. Neoplasm in this region is not excluded. IMPRESSION: Persistent findings of proximal sigmoid diverticulitis. Neoplasm in this region is not excluded. Large uterine mass worrisome for neoplasm.. Stable adenopathy in the abdomen and pelvis worrisome for neoplastic involvement. Worsening anasarca Reviewed, Interpreted and Dictated by Lex Godinez III, MD Transcribed by Tanya Ashby Authenticated and [facility]
[2022-08-30 15:25] LABS: Vancomycin,Trough 10.6 ug/mL (5.0-10.0)
--- NOTE | 2022-08-30 15:42 | EXP.ACUTE.PN ---
Subjective *Date: 08/30/22 *Time: 13:27 Interval history: Remains afebrile. Stable on room air. Continues to complain of abdominal pain as this is her chief complaint. White cell count still elevated, has not shown any improvement even though other symptoms are defervescing. Bowel movement this morning. Discussed rescanning abdomen given concern for minimal clinical improvement on labs and continued abdominal discomfort. Additionally patient is only eating small amounts, states she gets nauseous after eating. Stressed the importance of her eating upright in a bedside chair. Urinating independently. Ambulating to the bathroom. No kevin vomiting, shortness of breath, chest pain. Medical Exam Vital signs and Labs for Last 24 Hours: Vital Signs Temp Pulse Resp BP Pulse Ox 08/30/22 08:00 98.3 F 101 H 16 116/56 L 95 08/30/22 04:00 98.1 F 98 H 16 112/62 94 L 08/29/22 20:00 108 H 94 L 08/29/22 20:00 97.9 F 108 H 17 111/61 94 L 08/29/22 18:38 99.1 F 108 H 20 113/54 L 95 08/29/22 16:00 98.4 F 101 H 16 114/54 L 95 Intake and Output 08/29/22 08/30/22 08/30/22 23:59 07:59 15:59 Intake Total 480 / 840 673 / 673 Output Total 300 / 301 Balance 479 / 839 672 / 372 -300 / 372 Intake: Intake, Oral Amount 480 / 840 Intake, Total IV Amount 673 / 673 0.9 % Sodium Chloride 1,000 ml 273 / 273 @ 120 mls/hr IV .Q8H20M GIL[facility]ERTO Rx# :[id number] Metronidaz/Sod Chl 500 mg In 100 / 100 100 ml @ 100 mls/hr IV Q8H GILBERTO Rx#:[id number] Vancomycin/Water For Inj (Peg) 300 / 300 1.5 gm In 300 ml @ 150 mls/hr IV Q18H GILBERTO Rx#:[id number] Output: Output, Urine Amount 300 / 301 Other: Number of Unmeasured Voids 1 0 Weight 100.015 kg Patient Weight 08/30/22 23:59 Weight 100.015 kg Laboratory Results - last 24 hr 08/29/22 16:20: POC Glucose 197 H 08/29/22 21:00: POC Glucose 162 H 08/30/22 06:00: WBC 20.9 H*, RBC 3.78 L, Hgb 10.4 L, Hct 31.2 L, MCV 82.5, MCH 27.4, MCHC 33.2, RDW 15.0, Plt Count 367, MPV 8.8, Neut % (Auto) 88.6 H, Lymph % (Auto) 6.6 L, [place] % (Auto) 4.0, Eos % (Auto) 0.6, Baso % (Auto) 0.2, Neut # (Auto) 18.5 H, Lymph # (Auto) 1.4, [place] # (Auto) 0.8, Eos # (Auto) 0.1, Baso # (Auto) 0.0, Total Counted 100, Neutrophils % (Manual) 91 H, Lymphocytes % (Manual) 4 L, Monocytes % (Manual) 5, Platelet Estimate Normal, RBC Morphology Normal 08/30/22 06:00: Sodium 132 L, Potassium 3.5, Chloride 97 L, Carbon Dioxide 22, Anion Gap 16.5 H, BUN 15, Creatinine 0.80, Estimated Creat Clear 44, Estimated GFR 73, Est GFR ( Amer) 88, Glucose 122 H, Calcium 7.5 L 08/30/22 06:00: POC Glucose 135 H 08/30/22 10:56: POC Glucose 121 H 08/30/22 14:45: Vancomycin Trough 10.6 H I & O for Labs for Last 24 Hours: Intake & Output 08/27/22 08/28/22 08/29/22 08/30/22 23:59 23:59 23:59 23:59 Intake Total 2139 / 2139 2436 / 2436 840 / 840 673 / 673 Output Total 750 / 750 0 / 0 301 / 301 Balance 1389 / 1389 2436 / 2436 839 / 839 372 / 372 Weight 99.39 kg 100.017 kg 100.017 kg 100.015 kg Head: Present atraumatic and normocephalic ENT: Present mucous membranes moist Comment:: very poor dentition, numerous teeth broken at gum line Neck: Present normal inspection Respiratory: Present CTA bilaterally; Absent accessory muscle use, wheezes or crackles Cardiac: Present Reg Rate and Rhythm GI: Present soft, tenderness (non focal, diffuse) and normal bowel sounds; Absent distention or rebound Rectal (female): Present deferred (female): Present deferred Extremities: Present normal inspection Skin: Present intact; Absent cyanosis or erythema Neuro: Present alert, awake and oriented x 3 Assessment and Plan *Assessment and plan (1) Sigmoid diverticulitis: Status: Acute Category: Medical Code(s): K57.32 - Diverticulitis of large intestine without perforation or abscess without bleeding (2) Enlarged uteru
[2022-08-30 16:00] VITALS: BP 114/56; PULSE 99; RESP 20; TEMP 36.6; O2SAT 96
[2022-08-30 16:41] LABS: POC Glucose,Bedside 152 (70-110)
[2022-08-30 20:00] VITALS: BP 135/68; PULSE 104; RESP 18; TEMP 36.8; O2SAT 97
--- NOTE | 2022-08-31 | PC.NURSE ---
[address] Patient awake and voiced no needs at this time. Trash emptied and linens
[2022-08-31 01:24] LABS: POC Glucose,Bedside 140 (70-110)
[2022-08-31 04:00] VITALS: BP 117/59; PULSE 67; RESP 16; TEMP 36.6; O2SAT 97
[2022-08-31 04:38] VITALS: BMI 42.3
--- NOTE | 2022-08-31 04:59 | PC.NURSE ---
no changes from previous assessment, pt rested at intervals, VSS, skin pwd, pt with +bm noted today, pt complains of abd tenderness and cramping type sharp pains at time, generalized edema 1+ noted, pt voiding without difficuty, pt up with assist x1, no acute distress, no other issues or concerns noted at this time.
--- NOTE | 2022-08-31 05:56 | PC.NURSE ---
[address] Trash emptied and ice water refilled
[2022-08-31 08:00] VITALS: BP 148/60; PULSE 107; RESP 18; TEMP 36.6; O2SAT 97
[2022-08-31 08:47] LABS: POC Glucose,Bedside 132 (70-110)
[2022-08-31 09:34] LABS: Basophils # 0.1 K/mm3 (0-0.2); Basophils % 0.4 % (0.1-2.0); Eosinophils # 0.2 K/mm3 (0.0-0.4); Eosinophils % 0.6 % (0.1-12.0); Hematocrit 33.8 % (37.0-47.0); Hemoglobin 10.9 g/dL (12.2-16.2); Lymphocytes # 1.5 K/mm3 (0.7-4.5); Lymphocytes % 6.3 % (10-50); Mean Corpuscular HGB Conc 32.1 g/dL (31.8-35.4); Mean Corpuscular Hemoglobin 26.4 pg (27.0-31.2); Mean Corpuscular Volume 82.3 fl (81-99); Mean Platelet Volume 8.4 fl (7.4-10.4); Monocytes # 0.9 K/mm3 (0.1-1.0); Monocytes % 3.7 % (1.7-9.3); Neutrophils # 21.7 K/mm3 (1.8-7.8); Neutrophils % 88.9 % (37.0-80.0); Platelet Count 443 K/mm3 (142-424); Red Blood Count 4.11 M/mm3 (4.20-5.40); Red Cell Distribution Width 14.9 % (11.5-17.5); White Blood Count 24.4 K/mm3 (4.8-10.8)
[2022-08-31 09:39] LABS: Chloride 98 mmol/L (98-107); MANUAL DIFFERENTIAL MANUAL DIFFERENTIAL (MANUAL DIFF); Potassium 3.7 mmoL/L (3.5-5.1); Sodium 134 mmol/L (136-145)
[2022-08-31 09:42] LABS: Anion Gap 20.7 mEq/L (5-15); Blood Urea Nitrogen 12 mg/dl (7-17); Carbon Dioxide 19 mmol/L (22.0-30.0); Creatinine Clearance Estimated 44 mL/min (50-200); Estimated Glomerular Filt Rate 85 ml/min (>60); GFR (African American) 103 ML/MIN (>60)
[2022-08-31 09:43] LABS: Calcium 7.8 mg/dl (8.4-10.2); Glucose 154 mg/dl (74-100)
[2022-08-31 09:59] LABS: Eosinophils % 1 % (0-3); Lymphocytes % 4 % (10-50); Monocytes % 4 % (2-9); Neutrophils % 89 % (42-76); Platelet Estimate Slight Increase; RBC Morphology Normal; Total Cells Counted 100
[2022-08-31 10:12] LABS: C-Reactive Protein 79.3 mg/L (0-4)
[2022-08-31 10:26] LABS: Procalcitonin 0.913 ng/mL (0.0-2.0)
--- NOTE | 2022-08-31 13:17 | EXP.DC.SUM ---
General Admission date:: 08/26/22 Discharge date: 08/31/22 HPI HPI HPI: Patient is a 62-year-old woman with past medical history of hypertension, type 2 diabetes, dysfunctional uterine bleeding, and recent bouts of diverticulitis and urinary tract infections who comes to the ER for bilateral lower abdominal pain. Patient was admitted here from 08/12/2022 to 08/13/2022 for diverticulitis and urinary tract infection. Patient saw her PCP on 08/23/2022 for early satiety and was prescribed Reglan for possible gastroparesis. She continues to have decreased appetite and has developed lower abdominal pain. This morning she woke up with nausea and vomiting and decided to come to the ER. CT abdomen and pelvis showed progression of diverticulitis so hospital service was called for admission. Patient denies fever, chills, chest pain, shortness of breath. She does report severe fatigue. Hospital Course Hospital Course Hospital Course: Patient is a 62-year-old woman with past medical history of hypertension, type 2 diabetes, dysfunctional uterine bleeding, and recent bouts of diverticulitis and urinary tract infections who was admitted for diverticulitis. Concern on imaging for persistent diverticulitis. Patient's blood cultures were positive but concern for contaminant given it was different species in different bottles. Patient's symptoms have defervesced over hospitalization even in light of her labs remaining abnormal with stably elevated white cell count. She is feeling much better and feels ready to go home. Plan to transition oral course of antibiotics and completed 2-week course for diverticulitis. Needs close follow-up in the outpatient setting with her PCP and gynecology to further work-up her enlarged uterus and follow-up on concerning imaging findings with her colon along with repeat lab work in the next week. Problems addressed during hospitalization as follows: Sigmoid diverticulitis Abdominal cramping -Admitted for concern for worsening diverticulitis. Broadened antibiotic coverage during hospitalization briefly from Levaquin and Flagyl to meropenem and Flagyl. Symptoms overall improved on combo of medications. We will plan to discharge home on Levaquin and Flagyl to complete 2 weeks of total therapy. While patient clinically is improving, her labs show persistent leukocytosis. Procalcitonin was within a normal range, inflammatory markers elevated with elevated CRP. Would warrant further monitoring in the outpatient setting. Also repeat imaging during hospitalization showed concern for possible abnormality in colon more than just diverticulitis. Would recommend following up in the outpatient setting as well to evaluate possible malignancy or colitis. Continued PPI during admission. Patient tolerating good diet by day of discharge. Post-menopausal bleeding/enlarged uterus -During hospitalization her original CT noted enlarged uterus. Ultrasound was obtained showing numerous masses and thickened endometrium. Repeat CT concerning for uterine abnormality. Needs close follow-up with gynecology for further evaluation for differential diagnosis of endometrial hyperplasia, fibroids, uterine cancer. Additionally has mesenteric lymphadenopathy of unclear significance. Defer further management and work-up to gynecology. Continued to have minimal spotting and clot passage during hospitalization. No significant drop in hemoglobin. Diabetes mellitus type 2 -Poorly controlled.? A1c 10.2 on 07/28/2022 -Continued her home Lantus during admission. Also treated with sliding scale insulin. Needs further management in the outpatient setting. Hypertension -Continue lisinopril 10 mg p.o. daily. Metoprolol 50 mg p.o. qd increased to BID.? Medically stable for discharge home however needs close follow-up for continued monitoring and resolution of her admission symptoms/diagnoses. Needs further assistance especially with gynecology. Exam Data for L
--- NOTE | 2022-08-31 13:53 | HMH.PHAINT1 ---
Pharmacy Intervention Comments: DISCHARGE MEDICATION COUNSELING PROVIDED. DISCUSSED SHORT-COURSE LEVAQUIN (TAKE EVERY 48 HOURS, ANTIBIOTIC, MAY WANT TO TAKE WITH FOOD, MAY CAUSE N/V/D, RARE RISK OF TENDON RUPTURE) AND METRONIDAZOLE (TAKE THREE TIMES DAILY, ANTIBIOTIC, AVOID ALL ALCOHOL AND ALCOHOL CONTAINING PRODUCTS OR IT WILL MAKE YOU VIOLENTLY ILL/NAUSEA/FLUSHING, N/V/D POSSIBLE, TAKE WITH FOOD.) PATIENT VERBALIZED NO QUESTIONS AT THIS TIME.
--- NOTE | 2022-09-05 13:05 | CARE MANAGER ---
Attempted to contact patient x3 and left VM message. BRENTON Guerra
== END 2022-08-31 14:55 | disposition home or self-care (01) | DRG 392 ==
LOC: ER 05:00 → 2ND 07:03
PROVIDERS: Internal Medicine Adolescent Medicine; Admitting Provider Emergency Medicine; Emergency Provider Emergency Medicine; PCP Family Medicine; Visit Provider Emergency Medicine
DX: K57.32 Diverticulitis of large intestine without perforation or abscess without bleeding (principal); Z68.41 Body mass index [BMI] 40.0-44.9, adult; N93.8 Other specified abnormal uterine and vaginal bleeding; I10 Essential (primary) hypertension; E78.2 Mixed hyperlipidemia; E66.9 Obesity, unspecified; E11.21 Type 2 diabetes mellitus with diabetic nephropathy; N85.2 Hypertrophy of uterus; Z79.4 Long term (current) use of insulin
CPT/HCPCS: 36415; 73560; 74176; 74177; 76856; 80048; 80053; 80202; 81001; 82150; 82962; 83605; 83690; 83735; 84145; 84443; 85007; 85025; 85651; 86140; 87040; 87077; 87086; 87186; 93005; 97110; 97116; 97162; 97166; 97530; 97535; 99285; C9803; J1956; J2185; J2405; J3475; Q9967; U0003; U0005

== ENCOUNTER 2022-09-11 14:20 | Inpatient (IN) | payer SELFPAY ==
[2022-09-11] VITALS (17 sets, daily range): BP systolic 79–133; BP diastolic 39–63; PULSE 120–137; RESP 18–47; TEMP 36.9–37.7; O2SAT 93–98; BMI 40.2; BMI 46.0
--- NOTE | 2022-09-11 14:17 | ECG_ITS ---
APPROVED REPORT Exam: Resting ECG HR:133 bpm ECG Measurements Heart Rate 133 AXES IN 180 P 95 QRSd 141 QRS -20 QT 370 T 38 QTc 448 Conclusion SINUS TACHYCARDIA RIGHT BUNDLE BRANCH BLOCK [120+ ms QRS DURATION, UPRIGHT V1, 40+ ms S IN I/aVL/V4/V5/V6] ABNORMAL ECG UNCONFIRMED REPORT Electronically signed by : Ag Blas MD 09/11/2022 21:06:06
--- NOTE | 2022-09-11 14:25 | XR_ITS ---
FINAL REPORT CLINICAL HISTORY: weakness, ams COMPARISON: 10/05/2019 FINDINGS: A single portable view of the chest was obtained. The heart size and pulmonary vascularity are within normal limits. The mediastinum is within normal limits. There are mild bibasilar opacities which is probably atelectasis. The bony thorax is intact. IMPRESSION: Mild bibasilar opacities, probable atelectasis. Reviewed, Interpreted and Dictated by Lex Godinez III, MD Transcribed by Triny Olivarez Authenticated and [facility]
[2022-09-11 14:56] LABS: Alanine Aminotransferase 18 U/L (12-78); Albumin Level 2.9 g/dl (3.5-5.0); Alkaline Phosphatase 135 U/L (38-126); Anion Gap 22.3 mEq/L (5-15); Aspartate Amino Transferase 57 U/L (14-36); Bilirubin,Total 0.3 mg/dl (0.2-1.3); Blood Urea Nitrogen 66 mg/dl (7-17); Calcium 8.5 mg/dl (8.4-10.2); Carbon Dioxide 20 mmol/L (22.0-30.0); Chloride 85 mmol/L (98-107); Creatinine Clearance Estimated 24 mL/min (50-200); Estimated Glomerular Filt Rate 12 ml/min (>60); GFR (African American) 14 ML/MIN (>60); Glucose 213 mg/dl (74-100); Potassium 4.3 mmoL/L (3.5-5.1); Sodium 123 mmol/L (136-145); Total Protein,Serum 5.9 g/dl (6.3-8.2)
[2022-09-11 15:08] LABS: Troponin I 0.05 ng/ml (0.00-0.034)
[2022-09-11 15:17] LABS: Basophils # 0.1 K/mm3 (0-0.2); Basophils % 0.2 % (0.1-2.0); Eosinophils # 0.1 K/mm3 (0.0-0.4); Eosinophils % 0.3 % (0.1-12.0); Hematocrit 28.8 % (37.0-47.0); Hemoglobin 9.3 g/dL (12.2-16.2); Lymphocytes # 1.2 K/mm3 (0.7-4.5); Lymphocytes % 2.9 % (10-50); Mean Corpuscular HGB Conc 32.4 g/dL (31.8-35.4); Mean Corpuscular Hemoglobin 26.6 pg (27.0-31.2); Mean Corpuscular Volume 82.1 fl (81-99); Mean Platelet Volume 8.8 fl (7.4-10.4); Monocytes # 1.1 K/mm3 (0.1-1.0); Monocytes % 2.6 % (1.7-9.3); Neutrophils % 94.1 % (37.0-80.0); Platelet Count 469 K/mm3 (142-424); Red Blood Count 3.51 M/mm3 (4.20-5.40); Red Cell Distribution Width 15.7 % (11.5-17.5)
[2022-09-11 15:20] LABS: White Blood Count 41.5 K/mm3 (4.8-10.8)
--- NOTE | 2022-09-11 15:20 | PC.NURSE ---
notified ER of critical WBC result
[2022-09-11 15:21] LABS: MANUAL DIFFERENTIAL MANUAL DIFFERENTIAL (MANUAL DIFF)
[2022-09-11 15:33] LABS: Lactic Acid 3.6 mmol/L (0.7-2.1)
[2022-09-11 15:40] LABS: Lymphocytes % 2 % (10-50); Monocytes % 1 % (2-9); Neutrophils % 97 % (42-76); Total Cells Counted 100
[2022-09-11 15:45] LABS: Ovalocytes 1+; Platelet Estimate Normal
[2022-09-11 16:06] LABS: Microscopic, Urine URINE MICROSCOPIC (MICROSCOPIC)
--- NOTE | 2022-09-11 16:09 | PC.NURSE ---
Pt given bath at this time, farmer catheter placed pt is excoriated in colette area, large amount of yeast noted. Buttocks reddened and josé in color. Bleeding noted from gluteal cleft
[2022-09-11 16:10] LABS: Appearance,Urine CLEAR (Clear); Blood, Urine 2+ (Negative); Glucose,Urine (UA) TRACE (Negative); Ketones,Urine Negative (Negative); Leukocyte Esterase,Urine TRACE (Negative); Nitrate,Urine POSITIVE (Negative); PH,Urine 5.5 (5.0-8.5); Protein,Urine TRACE (Negative)
--- NOTE | 2022-09-11 16:14 | PC.NURSE ---
GENE JIMENEZ at
[2022-09-11 16:15] LABS: Bilirubin,Urine 1+ (Negative); Color,Urine Amber (Yellow)
--- NOTE | 2022-09-11 16:17 | [facility].EDGENADL ---
Discharge Plan Disposition Patient Disposition: Admitted As Inpatient Condition: Critical Chief Complaint: Weakness Prescriptions Prescriptions: No Action gabapentin 600 mg tablet 600 mg PO QID PRN (Reason: Pain) 30 Days Qty: 120 1RF lisinopril 10 mg tablet 10 mg PO DAILY cyclobenzaprine 10 mg tablet 10 mg PO TID Qty: 90 0RF atorvastatin 10 mg tablet 10 mg PO HS metoprolol succinate [Toprol XL] 50 mg tablet extended release 24 hr 50 mg PO DAILY pantoprazole [Protonix] 40 mg tablet,delayed release (DR/EC) 40 mg PO HS montelukast [Singulair] 10 mg tablet 10 mg PO PM ergocalciferol (vitamin D2) 1,250 mcg (50,000 unit) capsule 50,000 unit PO WEEKLY Toujeo SoloStar U-300 Insulin 300 unit/mL (1.5 mL) insulin pen 24 unit SQ HS metoclopramide HCl [Reglan] 10 mg tablet 10 mg PO ACHS Humalog KwikPen Insulin 200 unit/mL (3 mL) insulin pen 20 unit SQ TIDWMEAL metronidazole 500 mg Tablet 500 mg PO TID 8 Days Qty: 24 0RF Rx Instructions: start tonight 08/31/22 levofloxacin 750 mg tablet 750 mg PO Q48H Qty: 4 0RF Rx Instructions: first dose due 09/02/22 albuterol sulfate 8.5 GM HFA aerosol inhaler 2 puffs IH Q6HP PRN (Reason: Shortness Of Breath) 30 Days Qty: 1 5RF Clinical Impressions Clinical Impression: Septic shock, Anemia, Acute renal failure, Diverticulitis Discharge ED Provider: Lionel See General Adult HPI General Chief complaint: Weakness Stated complaint: weakness, not eating Time Seen by Provider: 09/11/22 16:05 History of Present Illness HPI narrative: Patient is brought in by ambulance. History obtained from patient and . Patient was recently admitted to this hospital for diverticulitis. She says that since going home she has not been doing well. She has not been able to eat or drink. She has been vomiting and having diarrhea. Today she says that she is disoriented and out of my mind . She continues to have some discomfort in her lower abdomen. Denies urinary symptoms. Denies chest pain. Denies shortness of breath. Denies cough or URI symptoms. Related Data Home Medications Medication Instructions Recorded Confirmed lisinopril 10 mg tablet 10 mg PO DAILY High blood pressure 06/21/22 08/26/22 atorvastatin 10 mg tablet 10 mg PO HS Cholesterol 08/11/22 08/26/22 ergocalciferol (vitamin D2) 1,250 50,000 unit PO WEEKLY Supplement 08/11/22 08/26/22 mcg (50,000 unit) capsule insulin glargine U-300 conc 300 24 unit SQ HS Diabetes 08/11/22 08/26/22 unit/mL (1.5 mL) subcutaneous pen (Toujeo SoloStar U-300 Insulin) metoprolol succinate 50 mg 50 mg PO DAILY High blood pressure 08/11/22 08/26/22 tablet,extended release 24 hr (Toprol XL) montelukast 10 mg tablet 10 mg PO PM Allergy symptoms 08/11/22 08/26/22 (Singulair) pantoprazole 40 mg tablet,delayed 40 mg PO HS acid reflux 08/11/22 08/26/22 release (Protonix) insulin lispro 200 unit/mL (3 mL) 20 unit SQ TIDWMEAL Diabetes 08/26/22 08/26/22 subcutaneous pen (Humalog KwikPen U-200 Insulin) metoclopramide HCl 10 mg tablet 10 mg PO ACHS acid reflux 08/26/22 08/26/22 (Reglan) Previous Rx's Medication Instructions Recorded albuterol sulfate 90 mcg/actuation 2 puffs inhalation Q6HP PRN 09/21/21 aerosol inhaler Shortness Of Breath 30 days #1 ea gabapentin 600 mg tablet 600 mg PO QID PRN Pain 30 days 04/02/22 #120 tabs cyclobenzaprine 10 mg tablet 10 mg PO TID MUSCLE SPASM #90 tabs 08/20/22 levofloxacin 750 mg tablet 750 mg PO Q48H #4 tabs 08/31/22 metronidazole 500 mg tablet 500 mg PO TID 8 days #24 tabs 08/31/22 Allergies Allergy/AdvReac Type Severity Reaction Status Date / Time amoxicillin Allergy Verified 08/23/22 15:32 Sulfa (Sulfonamide AdvReac Severe Anaphylaxis Verified 08/23/22 15:32 Antibiotics) aspirin [ASPIRIN] AdvReac Unknown Verified 08/23/22 15:32 PFSH PFSH Medical History (Reviewe
--- NOTE | 2022-09-11 16:20 | CT_ITS ---
PROCEDURE INFORMATION: Exam: CT Abdomen And Pelvis Without Contrast Exam date and time: 09/11/2022 4:53 PM Age: 62 years old Clinical indication: Abdominal pain; Generalized; Additional info: Abdo pain, recent diverticulitis TECHNIQUE: Imaging protocol: Computed tomography of the abdomen and pelvis without contrast. Radiation optimization: All CT scans at this facility use at least one of these dose optimization techniques: automated exposure control; mA and/or kV adjustment per patient size (includes targeted exams where dose is matched to clinical indication); or iterative reconstruction. COMPARISON: CT ABDOMEN PELVIS WO CON 08/30/2022 11:20 AM FINDINGS: Tubes, catheters and devices: West catheter. Lungs: Patchy ground-glass regions of opacification at both lung bases. Dense calcified granulomata again present at the right lung base. Pleural spaces: Resolution of previously demonstrated small bilateral pleural effusions. Liver: Hepatic steatosis. Hepatomegaly. Gallbladder and bile ducts: Cholecystectomy. Pancreas: Normal. No ductal dilation. Spleen: Normal. No splenomegaly. Adrenal glands: Normal. No mass. Kidneys and ureters: Bilateral hydronephrosis and hydroureter again demonstrated. Stomach and bowel: There is colonic wall thickening with pericolonic edema and inflamed diverticulum involving the involving the distal descending and sigmoid colon. Findings compatible with acute diverticulitis. Extensive regions of pericolonic mesenteric stranding which appear to have increased since the previous study. No definite evidence of abscess formation. Appendix: No evidence of appendicitis. Intraperitoneal space: See Stomach and bowel finding. Vasculature: Unremarkable. No abdominal aortic aneurysm. Lymph nodes: Bulky retroperitoneal and mesenteric lymph nodes partially visualized. Findings appear similar to the previous study. Urinary bladder: Unremarkable as visualized. Reproductive: Persistent uterine enlargement. Underlying fibroid suspected. Findings could be better assessed with a pelvic ultrasound. Bones/joints: Unremarkable. No acute fracture. Soft tissues: Anasarca. Other findings: Study limited without intravenous contrast administration. IMPRESSION: 1. Findings compatible with diverticulitis involving the distal descending and sigmoid colon. Interim increase in the extent of pericolonic mesenteric stranding since the previous study. No definite abscess formation. 2. Bulky retroperitoneal and mesenteric lymph nodes partially visualized. Findings appear similar to the previous study. 3. Persistent uterine enlargement. Underlying fibroid suspected. Findings could be better assessed with a pelvic ultrasound. 4. Bilateral hydronephrosis and hydroureter most likely secondary to distal ureteral obstruction
[2022-09-11 16:38] LABS: Bacteria,Urine 1+ /lpf
[2022-09-11 16:44] LABS: ABG Base Excess -8.6 mmol/L (-2.4-2.3); ABG HCO3 16.3 mmhg (22.0-26.0); ABG Oxygen Saturation 95 % (90-100); ABG PCO2 27.3 mmhg (35.0-45.0); ABG PH 7.39 mmol/L (7.35-7.45); ABG PO2 74.1 mmhg (80-100); ABG TCO2 17.1 mmhg (23-27); Oxygen 21 %
[2022-09-11 16:45] LABS: Allen's Test Non Applicable; Source Right Radial
--- NOTE | 2022-09-11 16:53 | PC.NURSE ---
pt to CT
[2022-09-11 18:44] LABS: Reflex Lactic Add Lactic Reflex
--- NOTE | 2022-09-11 18:48 | PC.NURSE ---
GENE JIMENEZ speaking with dr. eddy (hospitalist)
[2022-09-11 18:53] LABS: Troponin I 0.05 ng/ml (0.00-0.034)
--- NOTE | 2022-09-11 19:00 | PC.NURSE ---
notified milk house worker of admission
--- NOTE | 2022-09-11 19:17 | PC.NURSE ---
shift change report given to susanrn
[2022-09-11 19:22] LABS: Coronavirus 19, PCR Not Detected (NotDetected); Influenza A, PCR Not Detected (NotDetected); Influenza B, PCR Not Detected (NotDetected)
[2022-09-11 19:54] LABS: Lactic Acid Follow Up (RFLX 1) 2.4 mmol/L (0.7-2.1)
--- NOTE | 2022-09-11 19:56 | EXP.HP ---
History of Present Illness *Admission Date: 09/11/22 *Reason for visit:: Weakness, nausea, vomiting, diarrhea, chills *History of present illness: Ms. Merrill is a 62-year-old female with a past medical history that is positive for Diabetes Mellitus, Asthma, GERD, Hyperlipidemia. She presents to [facility] with complaints of progressive weakness, nausea, vomiting, diarrhea that she reports has been present and worsened since she was recently discharged from the facility on 08/31. The patient is noted to have been hospitalized twice in the last month at the facility for similar presentations. She was originally admitted on 08/12 and diagnosed with Diverticulitis and treated with antibiotics. She was then admitted again and treated for Diverticultis on 08/26 and found to have an enlarged uterus on CT and had an US of the uterus that showed masses and thickened endometrium. Plan was for follow-up outpatient. The patient reported that she did not have follow-up yet. She reports that she was taking her antibiotic when she could tolerate orally. She continued to have abdominal bloating, nausea, diarrhea and occasional vomiting associated with chills so she came into the ER again for evaluation. In the ER the patient underwent a CT of the abdomen and pelvis that showed bilateral hydronephrosis and hydrouretur. The stomach and bowel showed colonic wall and pericolonic edema and inflammation and extensive regions of pericolonic mesenteric stranding which appears to have increased since prior study. The patient was noted to be hypotensive, Tachycardic, Elevated WBC. The patient met criteria for Severe Sepsis. In the ER the patient had Lactic and Blood cultures drawn prior to antibiotic administration. She received fluid bolus at 30ml/kg. [facility] Medical History 1st degree AV block Allergies Asthma Chest pain Diabetes mellitus Diabetes mellitus, type 2 Dyspnea Gastroesophageal reflux disease History of second hand smoke exposure Hyperlipidemia Hypertension Left arm pain Neuropathy Pneumonia RBBB Type 2 diabetes mellitus with peripheral neuropathy Surgical History History of appendectomy History of cholecystectomy History of colonoscopy Family History Other Family history of acute congestive heart failure Family history of cancer Tachycardia Social History Smoking Status: Never smoker alcohol intake: never counseling provided: none substance use type: denies use current occupational status: disabled Travel in the last 8 weeks: Inside the [place] household members: spouse housing: house Review of Systems Review of Systems Review of systems:: pertinent systems reviewed and negative unless documented below Constitutional Constitutional: Reports body ache(s), Reports chills, Reports fatigue, Reports headache(s) and Reports weakness Eyes Eyes: Reports system reviewed and no additional complaints, except as documented ENT Ears, Nose, Mouth, and Throat: Reports system reviewed and no additional complaints, except as documented and Reports headache(s) *Cardiovascular Cardiovascular: Reports system reviewed and no additional complaints, except as documented *Respiratory Respiratory: Reports system reviewed and no additional complaints, except as documented *Gastrointestinal Gastrointestinal: Reports abdominal pain, Reports bloating, Reports loose stools, Reports nausea and Reports vomiting *Genitourinary Genitourinary: Reports difficulty voiding *Musculoskeletal Musculoskeletal: Reports myalgias Integumentary/Breasts Skin/Breast: Reports system reviewed and no additional complaints, except as documented *Neurologic Neurologic: Reports headache(s) and Reports weakness Psychiatric Psychiatr
--- NOTE | 2022-09-11 20:20 | PC.NURSE ---
PT ARRIVED TO THE FLOOR VIA STRETCHER AT THIS TIME
[2022-09-11 21:07] LABS: Creatinine,Urine Random 126 mg/dL (Not Estab.)
[2022-09-11 21:13] LABS: POC Glucose,Bedside 176 (70-110)
[2022-09-11 21:18] LABS: Reflex Lactic (2 hrs) Add Lactic Reflex
[2022-09-11 21:19] LABS: Troponin I 0.05 ng/ml (0.00-0.034)
[2022-09-11 22:05] LABS: Lactic Acid Follow up (RFLX 2) 2.2 mmol/L (0.7-2.1)
--- NOTE | 2022-09-11 22:30 | EXP.SEPSISRE ---
[facility] Tissue Perfusion Eval Sepsis Re-Evaluation Performed: Yes Date Performed: 09/11/22 Time Performed: 20:30
[2022-09-11 23:00] LABS: Chloride 92 mmol/L (98-107); Sodium 124 mmol/L (136-145)
[2022-09-11 23:01] LABS: Potassium 4.1 mmoL/L (3.5-5.1)
[2022-09-11 23:03] LABS: Blood Urea Nitrogen 60 mg/dl (7-17); Creatinine Clearance Estimated 12 mL/min (50-200); Estimated Glomerular Filt Rate 13 ml/min (>60); GFR (African American) 16 ML/MIN (>60)
[2022-09-11 23:04] LABS: Anion Gap 20.1 mEq/L (5-15); Calcium 7.4 mg/dl (8.4-10.2); Carbon Dioxide 16 mmol/L (22.0-30.0); Glucose 155 mg/dl (74-100)
[2022-09-11 23:33] LABS: Adenovirus F 40/41, stool Not Detected (NotDetected); Astrovirus Not Detected (NotDetected); Campylobacter Not Detected (NotDetected); Clostridium Difficile A/B, PCR Not Detected (NotDetected); Cryptosporidium Not Detected (NotDetected); Cyclospora Cayetanesis Not Detected (NotDetected); Entamoeba histolytica Not Detected (NotDetected); Enteroaggregative E coli Not Detected (NotDetected); Enteropathogenic E coli Not Detected (NotDetected); Enterotoxigenic E coli Not Detected (NotDetected); Giardia lamblia Not Detected (NotDetected); Norovirus Not Detected (NotDetected); Plesimonas Shigalloides, PCR Not Detected (NotDetected); Rotavirus A Not Detected (NotDetected); Salmonella, PCR Not Detected (NotDetected); Sapovirus Not Detected (NotDetected); Shiga-like toxin E coli Not Detected (NotDetected); Shigella Enterovasive E coli Not Detected (NotDetected); Vibrio Cholerae Not Detected (NotDetected); Vibrio, PCR Not Detected (NotDetected); Yersinia Entercolitica, PCR Not Detected (NotDetected)
[2022-09-12] VITALS (24 sets, daily range): BP systolic 98–138; BP diastolic 42–64; PULSE 108–125; RESP 12–32; TEMP 36.2–37.3; O2SAT 94–100; BMI 46.7
--- NOTE | 2022-09-12 04:51 | PC.NURSE ---
pt has been alert to self and place this shift, has been tachy t/o shift with HR 111-137, SBP 110-133, telemetry has shown sinus tach, BLE 2+ pitting edema noted, 2L placed on pt at beginning of shift per her request, but has since been returned to room air with O2 sats 94-95%, lungs sounds diminished, farmer draining at bedside with blood tinged urine noted, farmer irrigated this shift due to blood clots in tubing, bowel sounds active, 2 BMs this shift, bloody discharge noted as well, bottom is red with open areas noted, pictures on chart
[2022-09-12 05:58] LABS: MANUAL DIFFERENTIAL MANUAL DIFFERENTIAL (MANUAL DIFF)
[2022-09-12 06:07] LABS: Lactic Acid 1.8 mmol/L (0.7-2.1)
[2022-09-12 06:08] LABS: Anion Gap 22.2 mEq/L (5-15); Blood Urea Nitrogen 64 mg/dl (7-17); Calcium 7.6 mg/dl (8.4-10.2); Carbon Dioxide 15 mmol/L (22.0-30.0); Chloride 94 mmol/L (98-107); Creatinine Clearance Estimated 12 mL/min (50-200); Estimated Glomerular Filt Rate 12 ml/min (>60); GFR (African American) 15 ML/MIN (>60); Glucose 127 mg/dl (74-100); Potassium 4.2 mmoL/L (3.5-5.1); Sodium 127 mmol/L (136-145)
[2022-09-12 06:19] LABS: POC Glucose,Bedside 158 (70-110)
[2022-09-12 07:46] LABS: Lymphocytes % 6 % (10-50); Monocytes % 6 % (2-9); Neutrophils % 88 % (42-76); Total Cells Counted 100
[2022-09-12 07:47] LABS: Platelet Estimate Slight Increase; RBC Morphology Normal
[2022-09-12 07:50] LABS: Basophils # 0.1 K/mm3 (0-0.2); Basophils % 0.3 % (0.1-2.0); Eosinophils # 0.1 K/mm3 (0.0-0.4); Eosinophils % 0.1 % (0.1-12.0); Hematocrit 26.5 % (37.0-47.0); Hemoglobin 8.6 g/dL (12.2-16.2); Lymphocytes # 1.2 K/mm3 (0.7-4.5); Lymphocytes % 2.5 % (10-50); Mean Corpuscular HGB Conc 32.2 g/dL (31.8-35.4); Mean Corpuscular Hemoglobin 26.8 pg (27.0-31.2); Mean Corpuscular Volume 83.1 fl (81-99); Mean Platelet Volume 8.8 fl (7.4-10.4); Monocytes # 1.4 K/mm3 (0.1-1.0); Neutrophils # 43.5 K/mm3 (1.8-7.8); Platelet Count 439 K/mm3 (142-424); Red Blood Count 3.19 M/mm3 (4.20-5.40); Red Cell Distribution Width 15.7 % (11.5-17.5)
[2022-09-12 07:54] LABS: White Blood Count 46.2 K/mm3 (4.8-10.8)
--- NOTE | 2022-09-12 07:58 | PC.NURSE ---
received call from lab reporting WBC 46.2. Name and verified. Dr. Goel updated.
--- NOTE | 2022-09-12 08:23 | EXP.SURG.CON ---
History of Present Illness *Admission Date: 09/11/22 *Reason for visit:: Persistent diverticulitis *History of present illness: This is a 62-year-old female seen in consultation from the hospital service for evaluation regarding persistent diverticulitis. Please see HPI forwarded from admission H&P below. Forwarded from admission H&P: Ms. Merrill is a 62-year-old female with a past medical history that is positive for Diabetes Mellitus, Asthma, GERD, Hyperlipidemia. She presents to [facility] with complaints of progressive weakness, nausea, vomiting, diarrhea that she reports has been present and worsened since she was recently discharged from the facility on 08/31. The patient is noted to have been hospitalized twice in the last month at the facility for similar presentations. She was originally admitted on 08/12 and diagnosed with Diverticulitis and treated with antibiotics. She was then admitted again and treated for Diverticultis on 08/26 and found to have an enlarged uterus on CT and had an US of the uterus that showed masses and thickened endometrium. Plan was for follow-up outpatient. The patient reported that she did not have follow-up yet. She reports that she was taking her antibiotic when she could tolerate orally. She continued to have abdominal bloating, nausea, diarrhea and occasional vomiting associated with chills so she came into the ER again for evaluation. In the ER the patient underwent a CT of the abdomen and pelvis that showed bilateral hydronephrosis and hydrouretur. The stomach and bowel showed colonic wall and pericolonic edema and inflammation and extensive regions of pericolonic mesenteric stranding which appears to have increased since prior study. The patient was noted to be hypotensive, Tachycardic, Elevated WBC. The patient met criteria for Severe Sepsis. In the ER the patient had Lactic and Blood cultures drawn prior to antibiotic administration. She received fluid bolus at 30ml/kg. [facility] Medical History 1st degree AV block Allergies Asthma Chest pain Diabetes mellitus Diabetes mellitus, type 2 Dyspnea Gastroesophageal reflux disease History of second hand smoke exposure Hyperlipidemia Hypertension Left arm pain Neuropathy Pneumonia RBBB Type 2 diabetes mellitus with peripheral neuropathy Surgical History History of appendectomy History of cholecystectomy History of colonoscopy Family History Other Family history of acute congestive heart failure Family history of cancer Tachycardia Social History Smoking Status: Never smoker alcohol intake: never counseling provided: none substance use type: denies use current occupational status: disabled Travel in the last 8 weeks: [place] the [place] household members: spouse housing: house Review of Systems Constitutional Constitutional: Reports headache(s) and Reports weakness ENT Ears, Nose, Mouth, and Throat: Reports headache(s) *Musculoskeletal Musculoskeletal: Denies numbness *Neurologic Neurologic: Reports confusion, Reports headache(s), Denies numbness and Reports weakness Psychiatric Psychiatric: Reports confusion Meds Home Medications and Allergies Home Medications Medication Instructions Recorded Confirmed Type albuterol sulfate 90 mcg/actuation 2 puffs inhalation Q6HP PRN 09/21/21 09/11/22 Rx aerosol inhaler Shortness Of Breath 30 days #1 ea gabapentin 600 mg tablet 600 mg PO QID PRN Pain 30 days 04/02/22 09/11/22 Rx #120 tabs lisinopril 10 mg tablet 10 mg PO DAILY High blood pressure 06/21/22 09/11/22 History atorvastatin 10 mg tablet 10 mg PO HS Cholesterol 08/11/22 09/12/22
--- NOTE | 2022-09-12 08:23 | HMH.PTWOUND ---
Rehab Inpt Wound Evaluation Rehab IP Wound Evaluation Start: 09/12/22 07:32 Freq: ONCE Status: Active Protocol: Document 09/12/22 08:16 MARILYN (Rec: 09/12/22 08:23 MARILYN [id number]) Rehab PT Wound Assessment Patient Status Premedicated Prior to Dressing Change No Subjective Subjective Pt willing to assist w/ rolling but unable to help much - upon rolling patient - pt had bowel movement and was unaware. Wound Sacrum Wound Type erythema Is This a Chronic Wound Yes Wound Bed Appearance Dusky Red,Benoit Wound Margins Description Indistinct Surrounding Tissue Appearance Benoit,Bright Red Plan/Recommendation Comment Pt has no open wound at this time - pt has large areas or erythemia and irritation on sacrum, gluteal area and inguinal folds due to irritation from feces, urine and poor hygiene. Pt has no open wounds at this time but is unaware of bowel movements - pt needs to be checked frequently for bowel movements , cleaned and have barrier cream applied liberally. No wound care need at this time, but wound care will be continually available for consultation and re-assessment if needed. Eval Complexity Eval Charge Codes 13406 - Moderate Complexity G-codes PT Current Status Other PT/OT Status PT Current Status Modifier CM-At least 80% but less than 100% impaired, limited or restricted PT Goal Status Other PT/OT Status PT Goal Status Modifer CM-At least 80% but less than 100% impaired, limited or restricted PHYSICIAN CERTIFICATION: I certify the specified therapy services for Alexy Merrill are required, authorized, and reviewed every 30 days.
--- NOTE | 2022-09-12 08:35 | EXP.PHA.CONS ---
Pharmacy Consult Date: 09/12/22 Time: 08:35 Referring provider: DR. LIMA Reason for Consult:: GENTAMICIN DOSING Allergies Allergy/AdvReac Type Severity Reaction Status Date / Time amoxicillin Allergy Verified 08/23/22 15:32 Sulfa (Sulfonamide AdvReac Severe Anaphylaxis Verified 08/23/22 15:32 Antibiotics) aspirin [ASPIRIN] AdvReac Unknown Verified 08/23/22 15:32 Home Medications Medication Instructions Recorded Confirmed Type albuterol sulfate 90 mcg/actuation 2 puffs inhalation Q6HP PRN 09/21/21 09/11/22 Rx aerosol inhaler Shortness Of Breath 30 days #1 ea gabapentin 600 mg tablet 600 mg PO QID PRN Pain 30 days 04/02/22 09/11/22 Rx #120 tabs lisinopril 10 mg tablet 10 mg PO DAILY High blood pressure 06/21/22 09/11/22 History atorvastatin 10 mg tablet 10 mg PO HS Cholesterol 08/11/22 09/12/22 History insulin glargine U-300 conc 300 24 unit SQ HS Diabetes 08/11/22 09/11/22 History unit/mL (1.5 mL) subcutaneous pen (Toujeo SoloStar U-300 Insulin) metoprolol succinate 50 mg 50 mg PO DAILY High blood pressure 08/11/22 09/11/22 History tablet,extended release 24 hr (Toprol XL) montelukast 10 mg tablet 10 mg PO PM Allergy symptoms 08/11/22 09/11/22 History (Singulair) pantoprazole 40 mg tablet,delayed 40 mg PO HS acid reflux 08/11/22 09/11/22 History release (Protonix) cyclobenzaprine 10 mg tablet 10 mg PO TID MUSCLE SPASM #90 tabs 08/20/22 09/11/22 Rx insulin lispro 200 unit/mL (3 mL) 20 unit SQ TIDWMEAL Diabetes 08/26/22 09/12/22 History subcutaneous pen (Humalog KwikPen U-200 Insulin) metoclopramide HCl 10 mg tablet 10 mg PO ACHS acid reflux 08/26/22 09/12/22 History (Reglan) New Prescriptions to Start Prescriptions: Height: 1.57 m Weight: 115.258 kg Laboratory Results:: Laboratory Results - last 24 hr 09/11/22 14:34: WBC 41.5 H*, RBC 3.51 L, Hgb 9.3 L, Hct 28.8 L, MCV 82.1, MCH 26.6 L, MCHC 32.4, RDW 15.7, Plt Count 469 H, MPV 8.8, Neut % (Auto) 94.1 H, Lymph % (Auto) 2.9 L, [place] % (Auto) 2.6, Eos % (Auto) 0.3, Baso % (Auto) 0.2, Neut # (Auto) 39.0 H, Lymph # (Auto) 1.2, [place] # (Auto) 1.1 H, Eos # (Auto) 0.1, Baso # (Auto) 0.1, Total Counted 100, Neutrophils % (Manual) 97 H, Lymphocytes % (Manual) 2 L, Monocytes % (Manual) 1 L, Platelet Estimate Normal, RBC Morphology Not Reportable, Ovalocytes 1+ 09/11/22 14:34: Sodium 123 L, Potassium 4.3, Chloride 85 L, Carbon Dioxide 20 L, Anion Gap 22.3 H, BUN 66 H, Creatinine 3.90 H, Estimated Creat Clear 24, Estimated GFR 12 L*, Est GFR ( Amer) 14 L*, Glucose 213 H, Calcium 8.5, Total Bilirubin 0.3, AST 57 H, ALT 18, Alkaline Phosphatase 135 H, Troponin I 0.05 H, Total Protein 5.9 L, Albumin 2.9 L, Globulin 3.0, Albumin/Globulin Ratio 1.0 L 09/11/22 14:34: Lactate 3.6 H 09/11/22 16:00: Urine Color Apryl, Urine Appearance Clear, Urine pH 5.5, Ur Specific [place] 1.020, Urine Protein Trace, Urine Glucose (UA) Trace, Urine Ketones Negative, Urine Blood 2+, Urine Nitrate Positive, Urine Bilirubin 1+ A, Urine Urobilinogen 1.0, Ur Leukocyte Esterase Trace, Urine RBC 5-10, Urine WBC 3-5, Ur Squamous Epith Cells 3-5, Urine Bacteria 1+ 09/11/22 16:00: Urine Creatinine 126 09/11/22 16:37: Specimen Source Right radial, O2 % 21, ABG pH 7.39, ABG pCO2 27.3 L, ABG pO2 74.1 L, ABG HCO3 16.3 L, ABG Total CO2 17.1 L, ABG O2 Saturation 95, ABG Base Excess -8.6 L, Naseem Test Non applicable 09/11/22 18:25: Troponin I 0.05 H 09/11/22 18:53: SARS-CoV-2 (PCR) Not detected, Influenza A Untype (PCR) Not detected, Influenza Type B (PCR) Not detected 09/11/22 19:24: Lactate 2.4 H 09/11/22 20:50: Troponin I 0.05 H 09/11/22 20:50: POC Glucose 176 H 09/11/22 21:32: Lactate 2.2 H 09/11/22 21:35: Sodium 124 L, Potassium 4.1, Chloride 92 L, Carbon Dioxide 16 L, Anion Gap 20.1 H, BUN 60 H, Creatinine 3.60 H, Estimated Creat Clear 12, Estimated GFR 13 L*, Est GFR ( Amer) 16 L*, Glucose 155 H D, Calcium 7.4 L 09/11/22 23:20: Stl Aeromonas (PCR) Not detected, Stl C. annabel
--- NOTE | 2022-09-12 09:12 | DIET.NUTRFU ---
consulted secondary to low Zander scale, excoriation noted per wound care consult. She reports she is incontinent and noted to have poor hygiene. Currently on clear liquids, will continue to monitor meal intake and supplement needs.
--- NOTE | 2022-09-12 11:58 | DIET.NUTRFU ---
Dr eddy upgraded to clear liquids this AM during rounds. kitchen notified
--- NOTE | 2022-09-12 13:18 | DIET.NUTRFU ---
Meal rounds today, she reports she tolerated clear liquids. Denied any N/V or constipation/diarrhea. She did report she still has some abdominal pain.
--- NOTE | 2022-09-12 13:22 | EXP.ACUTE.PN ---
Subjective *Date: 09/12/22 *Time: 14:51 Interval history: Remains in distress. Complaining of abdominal pain. States she feels somewhat better than when she came in last night. Continues to be tachycardic on exam. Blood pressure stable and within a normal range. Afebrile. Repeat labs this morning show worsening leukocytosis. No nausea or vomiting. Renal function still grossly abnormal. On 2 L nasal cannula with sats in the low 90s. Denies chest pain, fever. Complains of diffuse abdominal pain. After getting home from last admission, began to be intolerant of p.o. intake. Has had poor p.o. fluid intake, progressive weakness over the past several days. States her mouth is been very dry and remains dry today. Is alert and oriented x3. Medical Exam Vital signs and Labs for Last 24 Hours: Vital Signs Temp Pulse Pulse Resp BP BP Pulse Ox 09/12/22 12:00 120 H 09/12/22 08:00 120 H 09/12/22 11:37 98.5 F 09/12/22 08:00 98.4 F 09/12/22 06:00 125 H 26 H 130/48 L 94 L 09/12/22 04:18 110 H 09/12/22 05:00 119 H 24 138/63 94 L 09/12/22 04:00 111 H 95 09/12/22 04:00 99.2 F 111 H 23 110/55 L 95 09/12/22 03:00 113 H 24 116/46 L 94 L 09/12/22 02:00 115 H 26 H 126/45 L 97 09/11/22 21:00 130 H 09/12/22 01:00 115 H 09/12/22 00:00 97.6 F 119 H 32 H 113/50 L 97 09/11/22 23:00 120 H 30 H 110/57 L 97 09/11/22 22:00 122 H 30 H 122/58 L 98 09/11/22 21:00 131 H 36 H 133/50 L 98 09/11/22 20:45 137 H 47 H 94 L 09/11/22 20:37 99.8 F H 137 H 47 H 122/53 L 94 L 09/11/22 20:22 99.0 F 120 H 20 100/44 L 09/11/22 18:31 125 H 20 107/41 L 95 09/11/22 18:01 122 H 108/43 L 93 L 09/11/22 17:48 126 H 97/43 L 94 L 09/11/22 17:31 126 H 86/45 L 94 L 09/11/22 17:15 126 H 91/41 L 95 09/11/22 16:47 126 H 92/63 L 94 L 09/11/22 16:31 124 H 79/40 L 94 L 09/11/22 15:41 128 H 85/56 L 96 09/11/22 15:07 90/50 L 09/11/22 14:24 98.4 F 132 H 18 80/40 L 95 09/11/22 16:09 129 H 18 93/39 L 95 Intake and Output 09/11/22 09/12/22 09/12/22 23:59 07:59 15:59 Intake Total 0 / 0 188 / 1881 Output Total 400 / 400 0 / 0 Balance -400 / -400 1880 / 1881 0 1880 Intake: Intake, Oral Amount 0 / 0 Intake, Total IV Amount 1880 / 188 0.9 % Sodium Chloride 1,000 ml 681 / 681 @ 125 mls/hr IV .Q8H [facility] Rx#: [id number] 0.9 % Sodium Chloride 1,000 ml 1000 / 1000 @ 999 mls/hr IV .Q1H1M [facility] Rx#: [id number] Meropenem 1 gm In 0.9 % Sodium 100 / 100 Chloride 100 ml @ 100 mls/hr IV Q8H [facility] Rx#:[id number] Metronidaz/Sod Chl 500 mg In 100 / 100 100 ml @ 100 mls/hr IV Q8H G[facility] Rx#:[id number] Output: Output, Urine Amount 400 / 400 0 / 0 Other: Number of Unmeasured Voids 0 Weight 113.443 kg 115.258 kg 115.2 kg Patient Weight 09/12/22 23:59 Weight 115.2 kg Laboratory Results - last 24 hr 09/11/22 14:34: WBC 41.5 H*, RBC 3.51 L, Hgb 9.3 L, Hct 28.8 L, MCV 82.1, MCH 26.6 L, MCHC 32.4, RDW 15.7, Plt Count 469 H, MPV 8.8, Neut % (Auto) 94.1 H, Lymph % (Auto) 2.9 L, Gillespie % (Auto) 2.6, Eos % (Auto) 0.3, Baso % (Auto) 0.2, Neut # (Auto) 39.0 H, Lymph # (Auto) 1.2, Gillespie # (Auto) 1.1 H, Eos # (Auto) 0.1, Baso # (Auto) 0.1, Total Counted 100, Neutrophils % (Manual) 97 H, Lymphocytes % (Manual) 2 L, Monocytes % (Manual) 1 L, Platelet Estimate Normal, RBC Morphology Not Reportable, Ovalocytes 1+ 09/11/22 14:34: Sodium 123 L, Potassium 4.3, Chloride 85 L, Carbon Dioxide 20 L, Anion Gap 22.3 H, BUN 66 H, Creatinine 3.90 H, Estimated Creat Clear 24, Estimated GFR 12 L*, Est GFR ( Amer) 14 L*, Glucose 213 H, Calcium 8.5, Total Bilirubin 0.3, AST 57 H, ALT 18, Alkaline Phosphatase 135 H, Troponin I 0.05 H, Total Protein 5.9 L, Albumin 2.9 L, Globulin 3.0, Albumin/Gl
[2022-09-12 14:31] LABS: Chloride 96 mmol/L (98-107); Potassium 4.4 mmoL/L (3.5-5.1); Sodium 128 mmol/L (136-145)
[2022-09-12 14:34] LABS: Anion Gap 21.4 mEq/L (5-15); Blood Urea Nitrogen 66 mg/dl (7-17); Calcium 7.3 mg/dl (8.4-10.2); Carbon Dioxide 15 mmol/L (22.0-30.0); Creatinine Clearance Estimated 13 mL/min (50-200); Estimated Glomerular Filt Rate 13 ml/min (>60); GFR (African American) 16 ML/MIN (>60); Glucose 173 mg/dl (74-100)
[2022-09-12 16:43] LABS: POC Glucose,Bedside 187 (70-110)
[2022-09-12 16:43] LABS: POC Glucose,Bedside 169 (70-110)
[2022-09-12 18:23] LABS: Basophils # 0.1 K/mm3 (0-0.2); Basophils % 0.2 % (0.1-2.0); Eosinophils # 0.1 K/mm3 (0.0-0.4); Eosinophils % 0.3 % (0.1-12.0); Hematocrit 24.1 % (37.0-47.0); Lymphocytes # 1.2 K/mm3 (0.7-4.5); Lymphocytes % 2.9 % (10-50); Mean Corpuscular HGB Conc 31.7 g/dL (31.8-35.4); Mean Corpuscular Hemoglobin 26.6 pg (27.0-31.2); Mean Platelet Volume 8.7 fl (7.4-10.4); Monocytes % 2.5 % (1.7-9.3); Neutrophils % 94.1 % (37.0-80.0); Platelet Count 413 K/mm3 (142-424); Red Blood Count 2.87 M/mm3 (4.20-5.40); Red Cell Distribution Width 15.9 % (11.5-17.5)
--- NOTE | 2022-09-12 18:52 | PC.NURSE ---
received call from lab reporting WBC 40.4. Name and verified. Dr. Goel updated.
[2022-09-12 18:53] LABS: MANUAL DIFFERENTIAL MANUAL DIFFERENTIAL (MANUAL DIFF); White Blood Count 40.4 K/mm3 (4.8-10.8)
[2022-09-12 19:19] LABS: Lymphocytes % 4 % (10-50); Monocytes % 3 % (2-9); Neutrophils % 93 % (42-76); Total Cells Counted 100
[2022-09-12 19:20] LABS: Platelet Estimate Normal; RBC Morphology Normal
[2022-09-12 19:21] LABS: Hemoglobin 7.6 g/dL (12.2-16.2)
--- NOTE | 2022-09-12 21:46 | EXP.DC.SUM ---
General Admission date:: 09/11/22 Discharge date: 09/12/22 HPI HPI HPI: This is a 62-year-old female seen in consultation from the hospital service for evaluation regarding persistent diverticulitis. Please see HPI forwarded from admission H&P below. Forwarded from admission H&P: Ms. Merrill is a 62-year-old female with a past medical history that is positive for Diabetes Mellitus, Asthma, GERD, Hyperlipidemia. She presents to [facility] with complaints of progressive weakness, nausea, vomiting, diarrhea that she reports has been present and worsened since she was recently discharged from the facility on 08/31. The patient is noted to have been hospitalized twice in the last month at the facility for similar presentations. She was originally admitted on 08/12 and diagnosed with Diverticulitis and treated with antibiotics. She was then admitted again and treated for Diverticultis on 08/26 and found to have an enlarged uterus on CT and had an US of the uterus that showed masses and thickened endometrium. Plan was for follow-up outpatient. The patient reported that she did not have follow-up yet. She reports that she was taking her antibiotic when she could tolerate orally. She continued to have abdominal bloating, nausea, diarrhea and occasional vomiting associated with chills so she came into the ER again for evaluation. In the ER the patient underwent a CT of the abdomen and pelvis that showed bilateral hydronephrosis and hydrouretur. The stomach and bowel showed colonic wall and pericolonic edema and inflammation and extensive regions of pericolonic mesenteric stranding which appears to have increased since prior study. The patient was noted to be hypotensive, Tachycardic, Elevated WBC. The patient met criteria for Severe Sepsis. In the ER the patient had Lactic and Blood cultures drawn prior to antibiotic administration. She received fluid bolus at 30ml/kg. Hospital Course Hospital Course Hospital Course: Ms. Merrill is a 62-year-old female recently admitted and discharged from [facility] on 08/12 and 08/16 where she was evaluated and treated for Acute Diverticulitis and Dysfunctional Uterine bleeding with plans for follow-up outpatient for Specialist evaluations. She presented to the facility again on 09/11/2022 due to progressive weakness, nausea, vomiting and diarrhea. CT of the abdomen and pelvis performed on admission on 09/11/2022 showed bilateral hydronephrosis and hydrouretur and colonic wall and pericolonic edema and inflammatory and extensive regions of pericolonic mesenteric standing which appeared increased from prior studies. On presentation 09/11/2022 she was hypotensive, Tachycardic with elevated WBC and concern again for Diverticulitis, she was admitted with severe sepsis. She was given Fluids at 30mcg/kg, cultures were drawn. She was started empirically on Merrem and Flagyl. Creatinine was elevated in the 3.9 range. On 09/12 the patient's creatinine remained elevated in the 3.9 range, WBC went to 40K range, she continued to have vaginal bleeding as present on prior admission. Her antibiotic coverage was broadened to include gentamycin. Stool studies performed were negative on 09/12. Due to persistent Leukocytosis and concern for bladder obstruction and continued vaginal bleeding, higher level care was contacted at [facility]. She was accepted for transfer. The patient and were informed and were agreeable. Exam Data for Last 24 hours Vital signs and Labs for Last 24 Hours: Temp Pulse Resp BP Pulse Ox 97.2 F L 110 H 12 106/54 L 98 09/12/22 16:00 09/12/22 18:00 09/12/22 18:00 09/12/22 18:00 09/12/22 18:00 Laboratory Results - last 24 hr 09/11/22 21:32: Lactate 2.2 H 09/11/22 21:35: Sodium 124 L, Potassium 4.1, Chloride 92 L, Carbon Dioxide 16 L, Anion Gap 20.1 H,
[2022-09-12 22:10] LABS: POC Glucose,Bedside 165 (70-110)
--- NOTE | 2022-09-12 22:11 | PC.NURSE ---
2211 report called to Stephanie Lugo RN at [facility]
--- NOTE | 2022-09-12 23:16 | PC.NURSE ---
patient discharged to EMS @ this time.
[2022-09-13 10:30] LABS: Sodium, Urine <20 mmol/L (Not Estab.)
[2022-09-13 20:33] LABS: Peripheral Smear Review Scanned Result
== END 2022-09-12 23:16 | disposition short-term general hospital (02) | DRG 872 ==
LOC: ER 19:02 → 2ND 19:21
PROVIDERS: Nurse Practitioner Family; Admitting Provider Internal Medicine Adolescent Medicine; Emergency Provider Emergency Medicine; PCP Family Medicine; Visit Provider Internal Medicine Adolescent Medicine
DX: A41.9 Sepsis, unspecified organism (principal); N17.9 Acute kidney failure, unspecified; N39.0 Urinary tract infection, site not specified; K57.32 Diverticulitis of large intestine without perforation or abscess without bleeding; N13.30 Unspecified hydronephrosis; E87.1 Hypo-osmolality and hyponatremia; R65.20 Severe sepsis without septic shock; K21.9 Gastro-esophageal reflux disease without esophagitis; E11.42 Type 2 diabetes mellitus with diabetic polyneuropathy; J45.909 Unspecified asthma, uncomplicated; R22.9 Localized swelling, mass and lump, unspecified; N85.8 Other specified noninflammatory disorders of uterus
CPT/HCPCS: 36415; 51702; 71045; 74176; 80048; 80053; 81001; 82570; 82803; 82962; 83605; 84300; 84484; 85007; 85014; 85018; 85025; 85048; 85049; 86850; 87040; 87086; 87506; 93005; 99285; C9803; J2185; U0003; U0005